=== PATIENT | male | born 1995 | race Caucasian/White ===

== ENCOUNTER → 2016-08-10 | Outpatient (REF) | payer OTHER ==
[~2016-08-10] MED LIST: /ONDA4TA PO; BACIDCA PO; BACITAB PO; CARA1TAB2 PO; CIPRO PO; ENTO3CAP5 PO; FLAG500T PO; FLAGYL PO; HYOS125TA PO; KLON0.5T PO; LEVS0.123 PO; MESA24CASA PO; MORP10EL PO; PERCOCET PO; PRED10TA2 PO; PRIL40CA PO; PROM125TA PO; PROM25TA3 PO; REGL10TA6 PO; SIME80TA OR; TYLE325T5 PO; ULTR50TA PO; VANCOCIN PO; ZOLO100T PO
== END ==
LOC: M LAB REF 14:49
PROVIDERS: ATTEND Physician Assistant
DX: J02.9 Acute pharyngitis, unspecified (principal)

== ENCOUNTER → 2016-08-29 | Outpatient (REF) | payer OTHER | LOC: M LAB REF 19:32 | PROVIDERS: ATTEND Physician Assistant | DX: J02.9 Acute pharyngitis, unspecified (principal) ==

== ENCOUNTER → 2016-08-31 | Outpatient (CLI) | payer OTHER | LOC: M WUC 08:17 | PROVIDERS: ATTEND Physician Assistant | DX: J03.90 Acute tonsillitis, unspecified (principal) ==

== ENCOUNTER → 2018-10-16 | Outpatient (CLI) | payer OTHER ==
[~2018-10-16] MED LIST changes: -/ONDA4TA PO; +BUDE3CAP15 PO; -ENTO3CAP5 PO; +HYOS0.1256 PO; -HYOS125TA PO; -MORP10EL PO; +MORP10SO PO; +ONDA-1 PO; +OXYC1TAB23 PO; -PERCOCET PO
[2018-10-16 22:58] LABS: CHLAMYDIA DNA AMPLIFICATION NEGATIVE (NEGATIVE); GC DNA AMPLIFICATION NEGATIVE (NEGATIVE)
== END ==
LOC: M WUC 17:22
PROVIDERS: ATTEND Physician Assistant Medical
DX: A64 Unspecified sexually transmitted disease (principal)

== ENCOUNTER 2019-07-30 02:27 | Emergency (ER) | payer OTHER ==
[~2019-07-30] VITALS: Ht 188 cm; Wt 81.8 kg
[2019-07-30] MEDS ORDERED: SODI325T9 PO (02:39)
[2019-07-30] MEDS ORDERED: CAPSAICIN 0.025% CR 60 GM TOP ONE (04:00)
[2019-07-30] MEDS ORDERED: HALOPERIDOL 5 MG/ML VIAL (J1630) IV ONE (04:00)
[2019-07-30] MEDS ORDERED: NS 1,000 ML IV ONE (04:00)
[2019-07-30] MEDS ORDERED: KETOROLAC 30 MG/ML VIAL (J1885) IV ONE (04:00)
[2019-07-30] MEDS ORDERED: ONDANSETRON 4MG/2ML VIAL (J2405) IV ONE (04:00)
[2019-07-30 04:36] LABS: BASO % 0.1 % (0.0-1.0); HEMATOCRIT 38.7 % (42.0-52.0); HEMOGLOBIN 13.2 g/dl (13.5-17.5); LYMPH # 0.4 10^3/uL (1.5-5.0); LYMPH % 2.1 % (24.0-44.0); MEAN CORPUSCULAR HEMOGLOBIN 31.7 pg (27.0-33.0); MEAN CORPUSCULAR HGB CONC 34.1 g/dl (32.0-36.5); MEAN CORPUSCULAR VOLUME 92.8 fl (80.0-96.0); MONO # 0.5 10^3/uL (0.0-0.8); MONO % 2.6 % (0.0-5.0); NEUTROPHILS # 18.5 10^3/uL (1.5-8.5); NEUTROPHILS % 94.7 % (36.0-66.0); PLATELET COUNT, AUTOMATED 278 10^3/uL (150-450); RED BLOOD COUNT 4.17 10^6/uL (4.30-6.10); WHITE BLOOD COUNT 19.5 10^3/uL (4.0-10.0)
[2019-07-30 04:48] LABS: ALBUMIN 3.8 GM/DL (3.2-5.2); ALT/SGPT 16 U/L (12-78); BILIRUBIN,TOTAL 0.7 MG/DL (0.2-1.0); BLOOD UREA NITROGEN 21 MG/DL (7-18); CALCIUM LEVEL 9.6 MG/DL (8.5-10.1); CARBON DIOXIDE LEVEL 24 MEQ/L (21-32); CHLORIDE LEVEL 102 MEQ/L (98-107); GLOMERULAR FILTRATION RATE > 60.0 (>60); GLUCOSE, FASTING 145 MG/DL (70-100); LIPASE 37 U/L (73-393); SODIUM LEVEL 135 MEQ/L (136-145); TOTAL PROTEIN 7.9 GM/DL (6.4-8.2)
[2019-07-30 05:16] VITALS: BP 121/60
[2019-07-30] MEDS ORDERED: PROMETHAZINE INJ 25 MG/ML VIAL (J2550) IM ONE (05:45)
[2019-07-30] MEDS ORDERED: ISOVUE-370 76% 100ML VIAL (Q9967) As Ordered ONE (05:58)
--- NOTE | 2019-07-30 06:25 | REPVR ---
PROCEDURE INFORMATION: Exam: CT Abdomen and Pelvis With Contrast Exam date and time: 07/30/19 (5:58am) Age: 24 years old Clinical indication: Vomiting, nausea, abdominal pain TECHNIQUE: Imaging protocol: Computed tomography of the abdomen and pelvis with intravenous contrast. Radiation optimization: All CT scans at this facility use at least one of these dose optimization techniques: automated exposure control; mA and/or kV adjustment per patient size (includes targeted exams where dose is matched to clinical indication); or iterative reconstruction. Contrast material: Iso Contrast volume: 100 ml Contrast route: Antecubital vein COMPARISON: CT ABDOMEN PELVIS of 11/10/15 FINDINGS: Lower lung he: Bibasilar emphysematous lung changes. Scattered hazy opacities at each lung base. No pleural effusions. Liver: Normal. No solid mass. Gallbladder and bile ducts: Normal. No calcified stones. No ductal dilatation. Pancreas: Normal. No ductal dilatation. Spleen: Prominent spleen. Adrenals: Normal. No mass. Kidneys and ureters: Normal. No hydronephrosis. Stomach and bowel: Unremarkable. No bowel obstruction. No mucosal thickening. Appendix: A normal appendix is visualized. Intraperitoneal space: Unremarkable. No free air. No significant fluid collection. Vasculature: Unremarkable. No abdominal aortic aneurysm. Lymph nodes: Unremarkable. No enlarged lymph nodes. Bladder: Unremarkable as visualized. Reproductive: Unremarkable as visualized. Bones/joints: Unremarkable. No acute fracture. Soft tissues: Unremarkable. IMPRESSION: Emphysematous changes at each lung base, probably with chronic interstitial disease. Scattered hazy opacities at each lung base. Possible bibasilar pneumonitis. No consolidation. No pleural effusions. No acute bowel pathology. Prominent spleen. No hydronephrosis. Electronically signed by: Modesta Esqueda On 07/30/2019 06:25:31 AM
[2019-07-30] MEDS ORDERED: KETO10TAB PO (06:49)
[2019-07-30] MEDS ORDERED: ONDA4TAB6 PO ×2 (06:49→20:00)
[2019-07-30] MEDS ORDERED: OMEP1CAP94 PO (17:51)
[2019-07-30] MEDS ORDERED: MAGN500T8 PO (20:00)
[2019-07-30] MEDS ORDERED: VITAD1000T PO (20:00)
[2019-07-30] MEDS ORDERED: ATOM40CA2 PO (20:00)
[2019-07-30] MEDS ORDERED: B-12100010 PO (20:00)
== END 2019-07-30 07:24 | disposition home or self-care (01) ==
LOC: M ED 02:27
DX: R11.15 Cyclical vomiting syndrome unrelated to migraine (principal); F12.10 Cannabis abuse, uncomplicated; R91.8 Other nonspecific abnormal finding of lung field; Z79.899 Other long term (current) drug therapy
CPT/HCPCS: 74177; 80053; 83690; 85025; 96361; 96372; 96374; 96375; 99284; J1630; J1885; J2405; Q9967

== ENCOUNTER 2019-07-30 17:45 | Inpatient (IN) | payer OTHER ==
[~2019-07-30] VITALS: Ht 188 cm; Wt 78.9 kg
[~2019-07-30 17:45] MED LIST changes: +KETO10TAB PO; +ONDA4TAB6 PO; +SODI325T9 PO
[2019-07-30] MEDS ORDERED: OMEP1CAP94 PO (17:51)
[2019-07-30] MEDS ORDERED: PROCHLORPERAZINE 10 MG/2 ML VIAL (J0780) IV ONE (18:15)
[2019-07-30] MEDS ORDERED: KETOROLAC 30 MG/ML VIAL (J1885) IV ONE (18:15)
[2019-07-30] MEDS ORDERED: NS 500 ML IV ONE (18:30)
[2019-07-30] MEDS ORDERED: ACETAMINOPHEN 325 MG TAB PO ONE (18:30)
[2019-07-30 18:32] LABS: BASO % 0.1 % (0.0-1.0); HEMATOCRIT 39.9 % (42.0-52.0); HEMOGLOBIN 13.6 g/dl (13.5-17.5); LYMPH # 0.6 10^3/uL (1.5-5.0); LYMPH % 2.7 % (24.0-44.0); MEAN CORPUSCULAR HGB CONC 34.1 g/dl (32.0-36.5); MEAN CORPUSCULAR VOLUME 93.9 fl (80.0-96.0); MONO # 0.5 10^3/uL (0.0-0.8); MONO % 2.6 % (0.0-5.0); NEUTROPHILS # 19.7 10^3/uL (1.5-8.5); PLATELET COUNT, AUTOMATED 291 10^3/uL (150-450); RED BLOOD COUNT 4.25 10^6/uL (4.30-6.10); WHITE BLOOD COUNT 20.9 10^3/uL (4.0-10.0)
[2019-07-30 19:00] LABS: ALBUMIN 3.8 GM/DL (3.2-5.2); ALT/SGPT 18 U/L (12-78); BILIRUBIN,TOTAL 0.7 MG/DL (0.2-1.0); BLOOD UREA NITROGEN 23 MG/DL (7-18); CALCIUM LEVEL 9.8 MG/DL (8.5-10.1); CARBON DIOXIDE LEVEL 27 MEQ/L (21-32); CHLORIDE LEVEL 103 MEQ/L (98-107); CREATININE FOR GFR 0.82 MG/DL (0.70-1.30); GLOMERULAR FILTRATION RATE > 60.0 (>60); GLUCOSE, FASTING 101 MG/DL (70-100); LIPASE 42 U/L (73-393); POTASSIUM SERUM 4.1 MEQ/L (3.5-5.1); SODIUM LEVEL 137 MEQ/L (136-145); TOTAL PROTEIN 7.9 GM/DL (6.4-8.2)
[2019-07-30] MEDS ORDERED: HALOPERIDOL 5 MG/ML VIAL (J1630) IV ONE (19:00)
--- NOTE | 2019-07-30 19:10 | REP ---
HISTORY: Coronavirus workup. The patient has a fever. COMPARISON: Frontal view obtained as part of an abdominal series 11/10/2015. The technique utilized in obtaining the radiograph has magnified the cardiac silhouette and accentuated the interstitial markings. There are somewhat reticulonodular appearing bibasilar opacities representing a change from the prior exam. The pleural angles are sharp. The cardiac silhouette is magnified by technique. There is no change in the osseous structures. IMPRESSION: Bibasilar opacities as described above. Early basilar pneumonia cannot be ruled out. Electronically Signed by Guillermo Machuca DO 07/30/2019 07:31 P
[2019-07-30] MEDS ORDERED: ALBUTEROL 90 MCG/ACT 8GM HFA INHALER INH ONE (19:15)
[2019-07-30 19:22] LABS: INR 1.48; PROTHROMBIN TIME 17.6 SECONDS (11.8-14.0)
[2019-07-30 19:23] LABS: PARTIAL THROMBOPLASTIN TIME 38.5 SECONDS (25.0-38.4)
[2019-07-30 19:27] LABS: D-DIMER QUANT < 270 ng/ml (<500)
[2019-07-30] MEDS ORDERED: SODIUM CHLORIDE 0.9% 1000ML IV STA (19:41)
[2019-07-30 19:46] LABS: LDH LACTATE DEHYDROGENASE 389 U/L (87-241)
--- NOTE | 2019-07-30 19:47 | HPEPDOC ---
[facility] Medical History & Physical Date of Admission Jul 30, 2019 Date of Service: Jul 30, 2019 Other Provider John Merino MD History and Physical TIME OF SERVICE: 8:05 PM CHIEF COMPLAINT: Fever HISTORY OF PRESENT ILLNESS: This is a 24-year-old male who presented to the hospital earlier on today with complaints of nausea and nonbloody emesis. It was felt that his symptoms may be due to cyclic vomiting syndrome because he uses THC, and he was sent home. He returned this evening with complaints of shortness of breath, fever as high as 101.1 , and persistent vomiting. He reports being unable to keep "anything down". Over the last few weeks he has been following the [facility] orders except for a visit to a [facility] about a week ago. He has been working from home remotely, and lives with his parents. REVIEW OF SYSTEMS: 12 point review of systems negative except as listed in HPI PAST MEDICAL/ SURGICAL HISTORY: Hiatial hernia EGD/colonoscopy SOCIAL HISTORY: + THC + alcohol socially Lives with his parents FAMILY HISTORY: Reviewed and noncontributory ALLERGIES: Please see below. HOME MEDICATIONS: Please see below. PHYSICAL EXAMINATION: Vital Signs Date Time Temp Pulse Resp B/P (MAP) Pulse Ox O2 Delivery O2 Flow Rate FiO2 07/30/19 17:45 101.1 109 20 160/86 (110) 96 Room Air GEN: well-nourished / well developed/ NAD INTEGUMENT: Slightly flushed / he has a tattoo on his back HEENT: NCAT / lips acyanotic /mucus membranes moist and pink CVS: RRR/NMRG/ no lower extremity edema LUNGS: able to speak full sentences without stopping to take a breath /he has decreased air entry bilaterally/ sounds are diminished ABDOMEN: Contour (flat) MSK/EXTREMITIES: range of motion intact in all 4 extremities NEURO: CN 2-12 are grossly intact / speech is not dysarthric PSYCH: alert and oriented to person place and time/ able to understand and follow all commands LABORATORY DATA: Prothrombin Time 17.6H, Prothromb Time International Ratio 1.48, Activated Partial Thromboplast Time 38.5H, D-Dimer, Quantitative < 270 Immature Granulocyte % (Auto) 0.6, Neutrophils (%) (Auto) 94.0H, Lymphocytes (%) (Auto) 2.7L, Monocytes (%) (Auto) 2.6, Eosinophils (%) (Auto) 0.0, Basophils (%) (Auto) 0.1, Neutrophils # (Auto) 19.7H, Lymphocytes # (Auto) 0.6L, Monocytes # (Auto) 0.5, Eosinophils # (Auto) 0.0, Basophils # (Auto) 0.0, Nucleated Red Blood Cells % (auto) 0.0, Anion Gap 7L, Glomerular Filtration Rate > 60.0, Calcium Level 9.8, Total Bilirubin 0.7, Aspartate Amino Transf (AST/SGOT) 26, Alanine Aminotransferase (ALT/SGPT) 18, Alkaline Phosphatase 78, Total Protein 7.9, Albumin 3.8, Albumin/Globulin Ratio 0.93L, Lipase 42L IMAGING: Chest x-ray "IMPRESSION: Bibasilar opacities as described above. Early basilar pneumonia cannot be ruled out." MICROBIOLOGY: 07/30/19 Blood Culture, Received Pending 07/30/19 Blood Culture, Received Pending 07/30/19 Respiratory Panel (PCR), Received Pending ASSESSMENT: Mr. Tyson is a 24-year-old who will be admitted for management of sepsis/SIRS associated with persistent vomiting & shortness of breath. Based on his blood works and imaging findings, there is high suspicion for COVID 19. PLAN: 1. SIRS vs Sepsis Suspect viral infection but can't definitively r/o bacterial infection SIRS criterial include: Temp >101 / HR >90 / WBC >12 Lactic acid <1 NEW2S Score = low risk Plan: admit to PCU / telemetry / Sepsis protocol / Vancomycin & Meropenum Acetaminophen PRN for fever /f/u blood cx / initial fluid bolus of 30ml/kg/ target MAP 65 to 70 / f/u Is and Os with target UOP of at least 0.5 ml/kg/H / target serum glucose 140-180 while acutely ill / he is full code 2. Suspected COVID-19 vs other PNA Symptoms include dyspnea, cough, fever, n/v His WBC, CRP and LDH, PT, PTT are elevated Plts wnl Chest xray shows early bilateral basilar PNA Plan: airborne & contact precautions / continuous pulse ox / will hold of CT chest for now because he is still on RA / f/u respiratory panel, strep pnemo, legionella, fibrinogen, ferritin, procalcitonin, trop (if elevated will order Echo to r/o cardiomyopathy) / VBG to assess for hypoxia / supplemental O2 up to 3L with target FiO2 of 75% (if his FiO2 <75% will consider early elective intubation) 3. Nausea and vomiting Possibly due to virus Plan: Zofran, IV fluids DVT PROPHYLAXIS: lovenox DISPOSITION: likely home after more than 2 midnight's stay Home Medications Scheduled Atomoxetine HCl (Atomoxetine HCl) 40 Mg Capsule, 80 MG PO DAILY Cholecalciferol (Vitamin D3) (Vitamin D3) 1,000 Unit Tablet, 3,000 UNITS PO DAILY Cyanocobalamin (Vitamin B-12) (Vitamin B-12) 1,000 Mcg Capsule, 1,000 MCG PO DAILY Magnesium Gluconate (Magnesium Gluconate) 27.5 Mg Tablet, 1 TAB PO DAILY Omeprazole/Sodium Bicarbonate (Omeprazole-Bicarb 40-1,100 Cap) 1 Each Capsule, 1 CAP PO BID before meals Scheduled PRN Ondansetron (Ondansetron Odt) 4 Mg Tab.rapdis, 4 MG PO Q6-8HP PRN for NAUSEA OR VOMITING Allergies Coded Allergies: No Known Allergies (Unverified , 11/28/12) A-FIB/CHADSVASC A-FIB History Current/History of A-Fib/PAF?: No Current PO Anticoag Therapy: No SIS MCCRAY MD Jul 30, 2019 19:47
[2019-07-30] MEDS ORDERED: MAGN500T8 PO (20:00)
[2019-07-30] MEDS ORDERED: ATOM40CA2 PO (20:00)
[2019-07-30] MEDS ORDERED: ONDA4TAB6 PO (20:00)
[2019-07-30] MEDS ORDERED: VITAD1000T PO (20:00)
[2019-07-30] MEDS ORDERED: B-12100010 PO (20:00)
[2019-07-30] MEDS: DOCUSATE SODIUM 100 MG CAP PO SCH ×2 (20:06→20:17)
[2019-07-30 21:24] LABS: MAGNESIUM LEVEL 2.1 MG/DL (1.8-2.4); TROPONIN I < 0.02 NG/ML (< 0.10)
[2019-07-30 21:38] LABS: FIBRINOGEN 1218 MG/DL (221-452)
[2019-07-30 21:50] LABS: FERRITIN 348 NG/ML (26-388)
[2019-07-30 22:35] VITALS: BP 117/74
[2019-07-30 22:40] VITALS: O2SAT 96
[2019-07-30] MEDS: MEROPENEM INJ 1 GM in IV 1 EA IV SCH (22:53)
[2019-07-30 23:00] VITALS: O2SAT 95
[2019-07-30] MEDS ORDERED: VANCOMYCIN HCL 1,000 MG, VIAL MATE ADAPTER 1 EACH in D5W 250 ML IV ONE (23:30)
[2019-07-31] VITALS (30 sets, daily range): BP systolic 114–134; BP diastolic 69–85; O2SAT 91–97
--- NOTE | 2019-07-31 00:28 | PHACANCOPD ---
PHARMACY VANCOMYCIN DOSING Pt Demographics Demographics Patient Age:24 , Weight:80.300 , Gender: male Adjusted Body Weight Date: 07/31/19, Adjusted Body Weight: Kg Events Past 24 Hours Events Past 24 Hours: NO: Dialysis, Diuretic Therapy, Change in CrCl, Fever, Elevation in WBC, Pending Diagnostics, Pending Procedures, Other Vancomycin Vancomycin Target Ranges: 15-20 mcg/ml Vancomycin Load Y/N: Yes Load Dose Date Time Vancomycin Load Dose: 2000mg Date: 07-30 Time: 0000 Vancomycin Dose Date: 07/31/19. Current Vancomycin Dose: [1000mg q8h] Intermittent Dosing?: No Labs Labs Item Value Date Time White Blood Count 20.9 10^3/uL H 07/30/19 1823 Glomerular Filtration Rate > 60.0 07/30/19 1823 Creatinine 0.82 MG/DL 07/30/19 1823 Blood Urea Nitrogen 23 MG/DL H 07/30/19 1823 Vital Signs Label Value Date Time Patient Temperature 95.4 degrees F 07/31/19 0000 Temperature Source Oral 07/31/19 0000 Micro Microbiology 07/30/19 Blood Culture, Received Pending 07/30/19 Blood Culture, Received Pending 07/30/19 Coronavirus COVID-19 PCR ([facility]), Received Pending 07/30/19 Respiratory Panel (PCR) - Final, Complete Creatinine Clearance Date:07/31/19. Creatinine Clearance: [~140]. Pending Labs Trough - @1600 Assessment and Plan Maintaining Current Dose?: Yes Reason for dose change: No Dose Change Pharmacist Note Pharmacist Note Date: 07/31/19. Pharmacist note:Will monitor and make adjustments as needed. JOSE M[facility]ARM[facility] Jul 31, 2019 00:28
[2019-07-31] MEDS ORDERED: K-PHOS ORIGINAL (POT.ACID PHOSPHATE) 500MG TAB PO SCH (00:45)
[2019-07-31] MEDS ORDERED: NEUTRA-PHOS 1.5 GM PACKET PO ONE (00:45)
[2019-07-31] MEDS: VANCOMYCIN HCL 1,000 MG, VIAL MATE ADAPTER 1 EACH in D5W 250 ML IV SCH ×3 (01:24→17:38)
[2019-07-31] MEDS: LR 1,000 ML IV SCH ×3 (01:24→20:11)
[2019-07-31] MEDS: ONDANSETRON 4MG/2ML VIAL (J2405) IV PRN ×4 (05:02→23:35)
[2019-07-31] MEDS: MEROPENEM INJ 1 GM in IV 1 EA IV SCH ×2 (05:02→14:07)
[2019-07-31] MEDS: ACETAMINOPHEN TAB 650MG DOSE (2X325MG) PO PRN ×3 (05:08→20:14)
[2019-07-31 05:28] LABS: HEMATOCRIT 34.4 % (42.0-52.0); MEAN CORPUSCULAR HEMOGLOBIN 32.1 pg (27.0-33.0); MEAN CORPUSCULAR HGB CONC 33.7 g/dl (32.0-36.5); MEAN CORPUSCULAR VOLUME 95.3 fl (80.0-96.0); PLATELET COUNT, AUTOMATED 246 10^3/uL (150-450); RED BLOOD COUNT 3.61 10^6/uL (4.30-6.10); WHITE BLOOD COUNT 14.9 10^3/uL (4.0-10.0)
[2019-07-31 05:56] LABS: ALBUMIN 2.9 GM/DL (3.2-5.2); ALT/SGPT 15 U/L (12-78); BILIRUBIN,TOTAL 0.4 MG/DL (0.2-1.0); BLOOD UREA NITROGEN 14 MG/DL (7-18); CALCIUM LEVEL 8.5 MG/DL (8.5-10.1); CARBON DIOXIDE LEVEL 26 MEQ/L (21-32); CHLORIDE LEVEL 108 MEQ/L (98-107); CREATININE FOR GFR 0.63 MG/DL (0.70-1.30); GLOMERULAR FILTRATION RATE > 60.0 (>60); GLUCOSE, FASTING 81 MG/DL (70-100); HEMOGLOBIN 11.6 g/dl (13.5-17.5); POTASSIUM SERUM 3.9 MEQ/L (3.5-5.1); SODIUM LEVEL 140 MEQ/L (136-145); TOTAL PROTEIN 6.1 GM/DL (6.4-8.2)
[2019-07-31] MEDS: DOCUSATE SODIUM 100 MG CAP PO SCH ×2 (09:33→20:12)
[2019-07-31] MEDS: ENOXAPARIN 40 MG/0.4 ML SYRINGE (J1650) SC SCH (09:35)
[2019-07-31] MEDS: ATOMOXETINE HCL 40 MG CAP (STRATTERA) PO SCH ×2 (09:35→09:41)
--- NOTE | 2019-07-31 10:38 | ECGEPIP ---
[facility] - ED Test Date: 2019-07-30 Pat Name: JUAN TRAORE Department: Room: [place] [address] Gender: Male [employer]ic: [email or web address] : [id number] Requested By: MEME AHMADI PA-C Order Number: [id number] Reading MD: Julián Ayon Measurements Intervals [place] Rate: 97 P: 22 [place]: 140 QRS: 73 QRSD: 104 T: 56 QT: 351 QTc: 447 Interpretive Statements SINUS RHYTHM NO PRIORS FOR COMPARISON Electronically Signed on 07-31-2019 10:37:36 EDT by Julián Ayon
[2019-07-31] MEDS: MORPHINE 2 MG/ML 1ML VIAL (J2270) IV PRN ×3 (11:33→23:35)
--- NOTE | 2019-07-31 17:39 | IPNPDOC ---
Date Seen The patient was seen on 07/31/19. Progress Note SUBJECTIVE: Patient has had nausea thoughout the night, LR running at high rate. Afebrile since admission, WBC improved to 14K from 20K. 1 episode of diarrhea overnight. Switching abx from vancomycin, meropenem to ceftriaxone and azithromycin. GI panel pending along with other cultures. He admits to severe abdominal pain, worse with vomiting, nonbloody diarrhea, pain in the center of his chest that is nonradiating, 6/10 on pain scale, burning in character. OBJECTIVE: VITAL SIGNS: Please see below PHYSICAL EXAMINATION: CONSTITUTIONAL: Appears uncomfortable in bed, AAO x 3 EYES: PERRLA, EOM intact HENT, MOUTH: Normocephalic, atraumatic, moist mucous membranes NECK: SUPPLE, no JVD, no lymphadenopathy, no carotid bruit CV: Regular rate and rhythm, S1S2 normal, no murmurs/rubs/gallops RESPIRATORY: Decreased breath sounds bilaterally, Mild scattered rhonchi. No rales/wheezes GI: tenderness diffusely in abdomen, BS positive in 4 quadrants, soft, nondistended, no rebound or guarding, no organomegaly : Deferred MUSCULOSKELETAL: Normal ROM. No cyanosis, clubbing, swelling, joint deformity, extremity edema INTEGUMENTARY: Intact, no rashes, no lesions, no erythema NEUROLOGIC: Cranial Nerves II-XII are intact, no focal deficits PSYCHIATRIC: Mood and affect are normal CURRENT MEDICATIONS: Please see below LABORATORY DATA: Please see below IMAGING: No no imaging. ASSESSMENT: The patient is a 24-year-old male admitted under inpatient status for bilateral community acquired pneumonia, abdominal pain, r/o COVID 19. PLAN: 1.Community acquired PNA. Currently 93% on RA. Stopped vancomycin, meropenem and started on Ceftriaxone, azithromycin. Resp panel neg. F/u sputum cx, strep pn emo, legionella, blood cultures x 2 sets. Duonebs ATC, albuterol PRN. 2. Suspected COVID-19. Test pending. C/w airborne & contact precautions, continuous pulse ox, supplemental O2 PRN. Monitor for signs of hypoxia and notify MD quickly if suspect decompensation. 3. Nausea/nonbloody vomiting/nonbloody diarrhea. GI panel, COVID [address] abd/pelvis neg for abdominal pathology. C/w lactated ringers at 100 cc/hr, zofran IV and phenergan PO to be used interchangably. 4. DVT px. Lovenox SC. DISPOSITION: Patient is currently admitted under inpatient status. Plan is to discharge home when medically improved. VS, I&O, 24H, Fishbone Vital Signs/I&O Vital Signs Date Time Temp Pulse Resp B/P (MAP) Pulse Ox O2 Delivery O2 Flow Rate FiO2 07/31/19 13:00 93 Room Air 07/31/19 11:44 99.3 70 20 134/83 (100) I&O- Last 24 Hours up to 6 AM 07/31/19 06:00 Intake Total 3815 ml Output Total 750 ml Balance 3065 ml Laboratory Data 24H LABS Laboratory Tests 2 07/30/19 18:17: Prothrombin Time 17.6H, Prothromb Time International Ratio 1.48, Activated Partial Thromboplast Time 38.5H, Fibrinogen 1218H, D-Dimer, Quantitative < 270 07/30/19 18:23: Immature Granulocyte % (Auto) 0.6, Neutrophils (%) (Auto) 94.0H, Lymphocytes (%) (Auto) 2.7L, Monocytes (%) (Auto) 2.6, Eosinophils (%) (Auto) 0.0, Basophils (%) (Auto) 0.1, Neutrophils # (Auto) 19.7H, Lymphocytes # (Auto) 0.6L, Monocytes # (Auto) 0.5, Eosinophils # (Auto) 0.0, Basophils # (Auto) 0.0, Nucleated Red Blood Cells % (auto) 0.0, Anion Gap 7L, Glomerular Filtration Rate > 60.0, Calcium Level 9.8, Phosphorus Level 2.0L, Magnesium Level 2.1, Ferritin 348, Total Bilirubin 0.7, Aspartate Amino Transf (AST/SGOT) 26, Alanine Aminotransferase (ALT/SGPT) 18, Alkaline Phosphatase 78, Lactate Dehydrogenase 389H, Troponin I < 0.02, C-Reactive Protein, Quantitative 29.00H, Total Protein 7.9, Albumin 3.8, Albumin/Globulin Ratio 0.93L, Lipase 42L 07/30/19 19:32: Lactic Acid Level 0.7, Procalcitonin 0.11 07/30/19 19:41: Lab Scanned Report LAB OTHER 07/31/19 04:57: Nucleated Red Blood Cells % (auto) 0.0, Anion Gap 6L, Glomerular Filtration Rate > 60.0, Calcium Level 8.5, Total Bilirubin 0.4, Aspartate Amino Transf (AST/SGOT) 23, Alanine Aminotransferase (ALT/SGPT) 15, Alkaline Phosphatase 61, Total Protein 6.1#L, Albumin 2.9#L, Albumin/Globulin Ratio 0.91L 07/31/19 16:09: Vancomycin Level Trough 6.1L CBC/BMP Laboratory Tests 07/30/19 18:23 07/31/19 04:57 Microbiology Microbiology 07/30/19 Blood Culture, Received Pending 07/30/19 Blood Culture, Received Pending 07/30/19 Coronavirus COVID-19 PCR ([facility]), Received Pending 07/30/19 Respiratory Panel (PCR) - Final, Complete Current Medications Current Medications Medications (Trade) Dose Ordered Sig/Anupama Route PRN Reason Start Time Stop Time Status Last Admin Dose Admin Acetaminophen (Tylenol Tab) 650 mg Q4H PRN PO PAIN OR FEVER 07/30/19 19:45 07/31/19 09:34 Albuterol Sulfate (Proventil Neb) 2.5 mg Q2HP PRN NEB SOB/WHEEZING 07/31/19 17:45 UNV Albuterol/ Ipratropium (Duoneb (Ipr 0.5mg/Alb 2.5mg)) 3 ml RQ8H NEB 08/01/19 00:00 UNV Atomoxetine HCl (Strattera (Atomoxetine)) 80 mg DAILY PO 07/31/19 09:00 Azithromycin 500 mg/IV Miscellaneous Supplies 1 each/ Dextrose 255 ml @ 255 mls/hr Q24H IV 07/31/19 17:45 UNV Ceftriaxone Sodium 1 gm/ Dextrose 50 ml @ 100 mls/hr Q24H IV 07/31/19 17:45 UNV Dicyclomine HCl (Bentyl) 10 mg Q8HP PRN PO CRAMPS 07/31/19 06:15 Docusate Sodium (Colace) 100 mg BID PO 07/30/19 21:00 07/31/19 09:33 Enoxaparin Sodium (Lovenox) 40 mg DAILY SC 07/31/19 09:00 07/31/19 09:35 Home Med (Med Rec Complete!) ASDIRECTED XX 07/30/19 20:15 07/30/19 20:03 DC Lactated Ringer's 1,000 ml @ 100 mls/hr Q10H IV 07/31/19 17:45 UNV Lactated Ringer's 1,000 ml @ 150 mls/hr Q6H40M IV 07/31/19 00:45 07/31/19 17:34 DC 07/31/19 09:36 Meropenem 1 gm/IV Miscellaneous Supplies 50 ml @ 100 mls/hr Q8H IV 07/30/19 22:00 07/31/19 17:46 DC 07/31/19 14:07 Morphine Sulfate (Morphine Sulfate Inj) 1 mg Q6HP PRN IV MODERATE PAIN (PS 5-7) 07/31/19 11:00 07/31/19 17:39 Ondansetron HCl (ZOFRAN INJection) 4 mg Q6H PRN IV NAUSEA OR VOMITING 07/30/19 21:00 07/31/19 17:38 Pantoprazole Sodium (Protonix) 40 mg DAILY IV 08/01/19 09:00 UNV Potassium Phosphate (K-Phos Original) 750 mg NOW PO 07/31/19 00:45 07/31/19 00:45 DC Promethazine HCl (Phenergan) 25 mg Q6HP PRN PO NAUSEA 07/31/19 17:45 UNV Sodium Chloride (Nacl 0.9%) 2,410 ml BOLUS STAT IV 07/30/19 19:41 07/30/19 19:47 DC 07/30/19 20:00 Sodium Chloride (Saline Lock Flush) 2 ml ASDIRECTED PRN IV SEE LABEL COMMENTS 07/31/19 17:45 Sodium Chloride (Saline Lock Flush) 2 ml SLF IV 07/31/19 22:00 Vancomycin HCl 1000 mg/IV Miscellaneous Supplies 1 each/ Dextrose 270 ml @ 270 mls/hr Q8H IV 07/31/19 01:00 07/31/19 17:46 DC 07/31/19 17:38 Allergies Coded Allergies: No Known Allergies (Unverified , 11/28/12) Clarisse Lucio MD Jul 31, 2019 17:39
[2019-07-31] MEDS ORDERED: ALBUTEROL SULFATE 2.5 MG/0.5 ML INH NEB SOLN NEB PRN (17:45)
[2019-07-31] MEDS ORDERED: SLF 3 ML SYR IV PRN (17:45)
[2019-07-31] MEDS ORDERED: VANCOMYCIN HCL 1,000 MG, VIAL MATE ADAPTER 1 EACH in D5W 250 ML IV ONE (18:00)
[2019-07-31] MEDS: cefTRIAXone SOD 1 GM in D5W MINI-BAG PLUS 50 ML IV SCH (18:20)
[2019-07-31] MEDS: PANTOPRAZOLE 40MG INJ (PROTONIX) (C9113) IV SCH (18:20)
[2019-07-31] MEDS: AZITHROMYCIN INJ 500 MG, VIAL MATE ADAPTER 1 EACH in D5W 250 ML IV SCH (18:59)
[2019-07-31] MEDS: SLF 3 ML SYR IV SCH (20:11)
[2019-08-01] VITALS (23 sets, daily range): BP systolic 124–146; BP diastolic 52–85; O2SAT 87–96
[2019-08-01] MEDS ORDERED: METOCLOPRAMIDE INJ 10MG/2ML VIAL (J2765) IV ONE (02:45)
[2019-08-01] MEDS: ACETAMINOPHEN TAB 650MG DOSE (2X325MG) PO PRN ×2 (03:30→20:42)
[2019-08-01] MEDS: LR 1,000 ML IV SCH ×2 (05:53→15:39)
[2019-08-01] MEDS: MORPHINE 2 MG/ML 1ML VIAL (J2270) IV PRN ×2 (05:53→16:36)
[2019-08-01] MEDS: ONDANSETRON 4MG/2ML VIAL (J2405) IV PRN ×3 (05:53→20:42)
[2019-08-01] MEDS: SLF 3 ML SYR IV SCH ×3 (05:53→22:21)
[2019-08-01 07:21] LABS: ALBUMIN 2.8 GM/DL (3.2-5.2); ALT/SGPT 16 U/L (12-78); BILIRUBIN,TOTAL 0.8 MG/DL (0.2-1.0); BLOOD UREA NITROGEN 7 MG/DL (7-18); CALCIUM LEVEL 8.9 MG/DL (8.5-10.1); CARBON DIOXIDE LEVEL 30 MEQ/L (21-32); CHLORIDE LEVEL 100 MEQ/L (98-107); CREATININE FOR GFR 0.63 MG/DL (0.70-1.30); GLOMERULAR FILTRATION RATE > 60.0 (>60); GLUCOSE, FASTING 108 MG/DL (70-100); MAGNESIUM LEVEL 1.9 MG/DL (1.8-2.4); PHOSPHORUS LEVEL 3.4 MG/DL (2.5-4.9); POTASSIUM SERUM 3.6 MEQ/L (3.5-5.1); SODIUM LEVEL 136 MEQ/L (136-145); TOTAL PROTEIN 6.4 GM/DL (6.4-8.2)
[2019-08-01 08:27] LABS: HEMOGLOBIN 11.5 g/dl (13.5-17.5); MEAN CORPUSCULAR HEMOGLOBIN 31.9 pg (27.0-33.0); MEAN CORPUSCULAR HGB CONC 33.8 g/dl (32.0-36.5); MEAN CORPUSCULAR VOLUME 94.2 fl (80.0-96.0); PLATELET COUNT, AUTOMATED 255 10^3/uL (150-450); RED BLOOD COUNT 3.61 10^6/uL (4.30-6.10); WHITE BLOOD COUNT 17.1 10^3/uL (4.0-10.0)
[2019-08-01] MEDS: DOCUSATE SODIUM 100 MG CAP PO SCH ×2 (09:00→20:32)
[2019-08-01] MEDS: PANTOPRAZOLE 40MG INJ (PROTONIX) (C9113) IV SCH (09:07)
[2019-08-01] MEDS: ENOXAPARIN 40 MG/0.4 ML SYRINGE (J1650) SC SCH (09:07)
[2019-08-01] MEDS: ATOMOXETINE HCL 40 MG CAP (STRATTERA) PO SCH (09:07)
[2019-08-01] MEDS: ALBUTEROL 90 MCG/ACT 8GM HFA INHALER INH PRN (14:21)
[2019-08-01] MEDS ORDERED: IPRATROPIUM 0.5MG/ALBUTEROL 2.5MG INH SOL UD 3ML (DUONEB)(J7620) NEB SCH (16:00)
[2019-08-01] MEDS: PROMETHAZINE 25 MG TAB PO PRN (16:35)
[2019-08-01] MEDS: LACTOBACILLUS ACIDOPHILUS CAP (BACID) PO SCH (17:54)
[2019-08-01] MEDS: cefTRIAXone SOD 1 GM in D5W MINI-BAG PLUS 50 ML IV SCH (17:54)
[2019-08-01] MEDS: AZITHROMYCIN INJ 500 MG, VIAL MATE ADAPTER 1 EACH in D5W 250 ML IV SCH (18:31)
--- NOTE | 2019-08-01 20:18 | IPNPDOC ---
Date Seen The patient was seen on 08/01/19. Progress Note SUBJECTIVE: COVID neg, abx switched to ceftriaxone, azithromycin 07/31/19 and WBC increased today. Temp 100.3 this AM, otherwise improving significantly. All cx thus far neg. Advanced diet and switched to BRAT. PT/OT ordered. Diarrhea continues ;however, he has not eaten much. Burning chest pain, likely acid reflux still present but mild. Increased PPI. OBJECTIVE: VITAL SIGNS: Please see below PHYSICAL EXAMINATION: CONSTITUTIONAL: Appears comfortable, AAO x 3 EYES: PERRLA, EOM intact HENT, MOUTH: Normocephalic, atraumatic, moist mucous membranes NECK: SUPPLE, no JVD, no lymphadenopathy, no carotid bruit CV: Regular rate and rhythm, S1S2 normal, no murmurs/rubs/gallops RESPIRATORY: CTAB, No crackles/rales/wheezes GI: mild tenderness in abdomen, BS positive in 4 quadrants, soft, nondistended, no rebound or guarding, no organomegaly : Deferred MUSCULOSKELETAL: Normal ROM. No cyanosis, clubbing, swelling, joint deformity, extremity edema INTEGUMENTARY: Intact, no rashes, no lesions, no erythema NEUROLOGIC: Cranial Nerves II-XII are intact, no focal deficits PSYCHIATRIC: Mood and affect are normal CURRENT MEDICATIONS: Please see below LABORATORY DATA: Please see below IMAGING: No no imaging. ASSESSMENT: The patient is a 24-year-old male admitted under inpatient status for bilateral community acquired pneumonia, abdominal pain. PLAN: 1.Community acquired PNA. Doing well on 1 L NC; however WBC increased. Stopped vancomycin, meropenem on 07/31/19 and started on Ceftriaxone, azithromycin. Resp panel neg, blood cx neg, COVID neg. He has been unable to produce sputum cx. C/w current abx treatment and if worsen in the AM, consider reculturing. C/w albuterol PRN. 2. Suspected COVID-19. Test neg. 3. Nausea/nonbloody vomiting/nonbloody diarrhea. Improving slowly. Cannot r/o 2/2 to PNA vs. gastroenteritis. GI panel neg, COVID [address] abd/pelvis neg for abdominal pathology. C/w lactated ringers at 100 cc/hr, zofran IV and phenergan PO to be used interchangably. 4. Hx of hiatal hernia. Follows with GI physician as outpatient. 5. DVT px. Lovenox SC. DISPOSITION: Patient is currently admitted under inpatient status. Plan is to discharge home when medically improved. VS, I&O, 24H, Fishbone Vital Signs/I&O Vital Signs Date Time Temp Pulse Resp B/P (MAP) Pulse Ox O2 Delivery O2 Flow Rate FiO2 08/01/19 18:00 95 Room Air 08/01/19 16:46 20 1.0 08/01/19 16:00 98.6 99 146/52 (83) I&O- Last 24 Hours up to 6 AM 08/01/19 06:00 Intake Total 3845 ml Output Total 2900 ml Balance 945 ml Laboratory Data 24H LABS Laboratory Tests 2 08/01/19 06:32: Nucleated Red Blood Cells % (auto) 0.0 08/01/19 06:37: Anion Gap 6L, Glomerular Filtration Rate > 60.0, Calcium Level 8.9, Phosphorus Level 3.4#, Magnesium Level 1.9, Total Bilirubin 0.8#, Aspartate Amino Transf (AST/SGOT) 20, Alanine Aminotransferase (ALT/SGPT) 16, Alkaline Phosphatase 62, Total Protein 6.4, Albumin 2.8L, Albumin/Globulin Ratio 0.78L CBC/BMP Laboratory Tests 08/01/19 06:32 08/01/19 06:37 Microbiology Microbiology 07/31/19 Gastrointestinal Tract Panel (PCR) - Final, Complete 07/30/19 Blood Culture - Preliminary, Resulted No Growth after 48 hours. All Specime... 07/30/19 Blood Culture - Preliminary, Resulted No Growth after 48 hours. All Specime... 07/30/19 Coronavirus COVID-19 PCR ([facility]) - Final, Complete 07/30/19 Respiratory Panel (PCR) - Final, Complete Current Medications Current Medications Medications (Trade) Dose Ordered Sig/Anupama Route PRN Reason Start Time Stop Time Status Last Admin Dose Admin Acetaminophen (Tylenol Tab) 650 mg Q4H PRN PO PAIN OR FEVER 07/30/19 19:45 08/01/19 03:30 Albuterol Sulfate (Proventil Neb) 2.5 mg RQ2H PRN NEB SOB/WHEEZING 07/31/19 17:45 Cancel Albuterol Sulfate (Proventil, Ventolin Hfa) 2 puff Q2HP PRN INH SHORTNESS OF BREATH 08/01/19 07:00 08/01/19 14:21 Albuterol/ Ipratropium (Duoneb (Ipr 0.5mg/Alb 2.5mg)) 3 ml RQ8H NEB 08/01/19 16:00 Cancel Atomoxetine HCl (Strattera (Atomoxetine)) 80 mg DAILY PO 07/31/19 09:00 08/01/19 09:07 Azithromycin 500 mg/IV Miscellaneous Supplies 1 each/ Dextrose 255 ml @ 255 mls/hr Q24H IV 07/31/19 19:00 08/01/19 18:31 Ceftriaxone Sodium 1 gm/ Dextrose 50 ml @ 100 mls/hr Q24H IV 07/31/19 18:00 08/01/19 17:54 Dicyclomine HCl (Bentyl) 10 mg Q8HP PRN PO CRAMPS 07/31/19 06:15 Docusate Sodium (Colace) 100 mg BID PO 07/30/19 21:00 07/31/19 09:33 Enoxaparin Sodium (Lovenox) 40 mg DAILY SC 07/31/19 09:00 08/01/19 09:07 Home Med (Med Rec Complete!) ASDIRECTED XX 07/30/19 20:15 07/30/19 20:03 DC Lactated Ringer's 1,000 ml @ 100 mls/hr Q10H IV 07/31/19 18:00 08/01/19 15:39 Lactated Ringer's 1,000 ml @ 150 mls/hr Q6H40M IV 07/31/19 00:45 07/31/19 17:34 DC 07/31/19 09:36 Lactobacillus Acidophilus (Bacid) 1 ea BIDWM PO 08/01/19 18:00 08/01/19 17:54 Meropenem 1 gm/IV Miscellaneous Supplies 50 ml @ 100 mls/hr Q8H IV 07/30/19 22:00 07/31/19 17:46 DC 07/31/19 14:07 Morphine Sulfate (Morphine Sulfate Inj) 1 mg Q6HP PRN IV MODERATE PAIN (PS 5-7) 07/31/19 11:00 08/01/19 16:36 Omeprazole (PriLOSEC) 40 mg BID PO 08/01/19 21:00 Ondansetron HCl (ZOFRAN INJection) 4 mg Q6H PRN IV NAUSEA OR VOMITING 07/30/19 21:00 08/01/19 13:34 Pantoprazole Sodium (Protonix) 40 mg DAILY IV 07/31/19 09:00 08/01/19 09:38 DC 08/01/19 09:07 Potassium Phosphate (K-Phos Original) 750 mg NOW PO 07/31/19 00:45 07/31/19 00:45 DC Promethazine HCl (Phenergan) 25 mg Q6HP PRN PO NAUSEA 07/31/19 17:45 08/01/19 16:35 Sodium Chloride (Nacl 0.9%) 2,410 ml BOLUS STAT IV 07/30/19 19:41 07/30/19 19:47 DC 07/30/19 20:00 Sodium Chloride (Saline Lock Flush) 2 ml ASDIRECTED PRN IV SEE LABEL COMMENTS 07/31/19 17:45 Sodium Chloride (Saline Lock Flush) 2 ml SLF IV 07/31/19 22:00 08/01/19 13:22 Vancomycin HCl 1000 mg/IV Miscellaneous Supplies 1 each/ Dextrose 270 ml @ 270 mls/hr Q8H IV 07/31/19 01:00 07/31/19 17:46 DC 07/31/19 17:38 Allergies Coded Allergies: No Known Allergies (Unverified , 11/28/12) Clarisse Lucio MD Aug 01, 2019 20:18
[2019-08-01] MEDS: OMEPRAZOLE 20 MG CAP PO SCH (20:42)
[2019-08-01] MEDS: RAMELTEON 8 MG TAB (ROZEREM) PO PRN (22:47)
[2019-08-02] VITALS (12 sets, daily range): BP systolic 137–159; BP diastolic 65–95; O2SAT 91–96
[2019-08-02] MEDS: PROMETHAZINE 25 MG TAB PO PRN (01:55)
[2019-08-02] MEDS: MORPHINE 2 MG/ML 1ML VIAL (J2270) IV PRN ×3 (01:59→23:57)
[2019-08-02] MEDS: SLF 3 ML SYR IV SCH ×3 (04:20→20:41)
[2019-08-02] MEDS: LR 1,000 ML IV SCH ×3 (04:20→20:37)
[2019-08-02 05:24] LABS: HEMATOCRIT 32.7 % (42.0-52.0); HEMOGLOBIN 11.4 g/dl (13.5-17.5); MEAN CORPUSCULAR HEMOGLOBIN 32.1 pg (27.0-33.0); MEAN CORPUSCULAR HGB CONC 34.9 g/dl (32.0-36.5); MEAN CORPUSCULAR VOLUME 92.1 fl (80.0-96.0); PLATELET COUNT, AUTOMATED 281 10^3/uL (150-450); RED BLOOD COUNT 3.55 10^6/uL (4.30-6.10); WHITE BLOOD COUNT 17.2 10^3/uL (4.0-10.0)
[2019-08-02 05:42] LABS: ALBUMIN 2.4 GM/DL (3.2-5.2); ALT/SGPT 16 U/L (12-78); BILIRUBIN,TOTAL 0.4 MG/DL (0.2-1.0); BLOOD UREA NITROGEN 7 MG/DL (7-18); CALCIUM LEVEL 8.6 MG/DL (8.5-10.1); CARBON DIOXIDE LEVEL 30 MEQ/L (21-32); CHLORIDE LEVEL 100 MEQ/L (98-107); CREATININE FOR GFR 0.57 MG/DL (0.70-1.30); GLOMERULAR FILTRATION RATE > 60.0 (>60); GLUCOSE, FASTING 116 MG/DL (70-100); PHOSPHORUS LEVEL 3.9 MG/DL (2.5-4.9); POTASSIUM SERUM 3.7 MEQ/L (3.5-5.1); SODIUM LEVEL 137 MEQ/L (136-145); TOTAL PROTEIN 5.8 GM/DL (6.4-8.2)
[2019-08-02] MEDS: LACTOBACILLUS ACIDOPHILUS CAP (BACID) PO SCH ×2 (08:35→18:28)
[2019-08-02] MEDS: OMEPRAZOLE 20 MG CAP PO SCH ×2 (08:35→20:36)
[2019-08-02] MEDS: DOCUSATE SODIUM 100 MG CAP PO SCH ×2 (08:36→20:45)
[2019-08-02] MEDS: ATOMOXETINE HCL 40 MG CAP (STRATTERA) PO SCH (08:36)
[2019-08-02] MEDS: ONDANSETRON 4MG/2ML VIAL (J2405) IV PRN ×3 (08:51→20:42)
[2019-08-02] MEDS: ENOXAPARIN 40 MG/0.4 ML SYRINGE (J1650) SC SCH (08:52)
[2019-08-02] MEDS ORDERED: VANCOMYCIN HCL 1,000 MG, VIAL MATE ADAPTER 1 EACH in D5W 250 ML IV ONE ×2 (09:00→10:00)
[2019-08-02] MEDS: IPRATROPIUM 0.5MG/ALBUTEROL 2.5MG INH SOL UD 3ML (DUONEB)(J7620) NEB SCH ×3 (10:58→19:51)
--- NOTE | 2019-08-02 12:27 | PHACANCOPD ---
PHARMACY VANCOMYCIN DOSING Pt Demographics Demographics Patient Age:24 , Weight:83.000 , Gender: male Adjusted Body Weight Date: 07/31/19, Adjusted Body Weight: Kg Events Past 24 Hours Events Past 24 Hours: YES: Fever, Elevation in WBC Vancomycin Vancomycin Target Ranges: 15-20 mcg/ml Vancomycin Load Y/N: Yes Load Dose Date Time Vancomycin Load DOse: 2000 mg Date: 08/01 Time: 0900 Vancomycin Load Dose: 2000mg Date: 07-30 Time: 0000 Vancomycin Dose Date: 08/02/19. Current Vancomycin Dose: [1000 mg q6h] Date: 07/31/19. Current Vancomycin Dose: [1000mg q8h] Intermittent Dosing?: No Labs Micro Microbiology 08/01/19 Gram Stain - Final, Resulted 08/01/19 Sputum Culture, Resulted Pending 07/31/19 Gastrointestinal Tract Panel (PCR) - Final, Complete 07/30/19 Blood Culture - Preliminary, Resulted No Growth after 48 hours. All Specime... 07/30/19 Blood Culture - Preliminary, Resulted No Growth after 48 hours. All Specime... 07/30/19 Coronavirus COVID-19 PCR ([facility]) - Final, Complete 07/30/19 Respiratory Panel (PCR) - Final, Complete Creatinine Clearance Date:07/31/19. Creatinine Clearance: [~140]. Pending Labs Trough 04- @1600 Assessment and Plan Maintaining Current Dose?: Yes Reason for dose change: No Dose Change Pharmacist Note Pharmacist Note Date: 08/02/19. Pharmacist note: Pharmacy consulted for Vancomycin for treatment of Community Acquired Pneumonia with a goal trough of 15-20 mcg/ml. MRSA PCR screen has been ordered. We'll load him with 2 grams and follow with 1 gm IV q6h. Pharmacy will continue to monitor and make adjustments as needed. Date: 07/31/19. Pharmacist note:Will monitor and make adjustments as needed. ÓSCAR SAM PHARMACY Aug 02, 2019 12:27
[2019-08-02] MEDS: VANCOMYCIN HCL 1,000 MG, VIAL MATE ADAPTER 1 EACH in D5W 250 ML IV SCH ×2 (15:15→20:36)
[2019-08-02] MEDS: cefTRIAXone SOD 1 GM in D5W MINI-BAG PLUS 50 ML IV SCH (18:28)
[2019-08-02] MEDS: ACETAMINOPHEN TAB 650MG DOSE (2X325MG) PO PRN ×2 (18:30→23:57)
--- NOTE | 2019-08-02 19:58 | IPNPDOC ---
Date Seen The patient was seen on 08/02/19. Progress Note SUBJECTIVE: WBC stayed high at 17K, similar to day prior. Sputum cx pending; however, prelim growing Gram pos cocci, gram pos rods. Stopped Azithromycin, started Vancomycin again and c/w ceftriaxone. States to cont to have diarrhea with nausea. Nutrition is following. OBJECTIVE: VITAL SIGNS: Please see below PHYSICAL EXAMINATION: CONSTITUTIONAL: Appears comfortable, AAO x 3 EYES: PERRLA, EOM intact HENT, MOUTH: Normocephalic, atraumatic, moist mucous membranes NECK: SUPPLE, no JVD, no lymphadenopathy, no carotid bruit CV: Regular rate and rhythm, S1S2 normal, no murmurs/rubs/gallops RESPIRATORY: CTAB, No crackles/rales/wheezes GI: mild tenderness in abdomen, BS positive in 4 quadrants, soft, nondistended, no rebound or guarding, no organomegaly : Deferred MUSCULOSKELETAL: Normal ROM. No cyanosis, clubbing, swelling, joint deformity, extremity edema INTEGUMENTARY: Intact, no rashes, no lesions, no erythema NEUROLOGIC: Cranial Nerves II-XII are intact, no focal deficits PSYCHIATRIC: Mood and affect are normal CURRENT MEDICATIONS: Please see below LABORATORY DATA: Please see below Sputum sample: MANY GRAM POSITIVE COCCI IN PAIRS, CHAINS AND CLUSTERS, MANY GRAM POSITIVE RODS Sputum cx pending IMAGING: No no imaging. ASSESSMENT: The patient is a 24-year-old male admitted under inpatient status for bilateral community acquired pneumonia, abdominal pain. PLAN: 1.Community acquired PNA. Doing well on 1 L NC; however WBC remains increased. C/w vancomycin, ceftriaxone, duonebs ATC, albuterol PRN, incentive spirometer. 2. Nausea/nonbloody vomiting/nonbloody diarrhea. Cannot r/o gastroenteritis but GI panel neg, COVID [address] abd/pelvis neg for abdominal pathology. C/w lactated ringers at 100 cc/hr, zofran IV and phenergan PO. 4. Hx of hiatal hernia. Follows with GI physician as outpatient. PPI 5. GERD. PPI BID. 6. DVT px. Lovenox SC. DISPOSITION: Patient is currently admitted under inpatient status. Plan is to discharge home when medically improved. VS, I&O, 24H, Fishbone Vital Signs/I&O Vital Signs Date Time Temp Pulse Resp B/P (MAP) Pulse Ox O2 Delivery O2 Flow Rate FiO2 08/02/19 16:00 1.0 08/02/19 16:00 99.7 108 19 146/84 (104) 96 Room Air I&O- Last 24 Hours up to 6 AM 08/02/19 06:00 Intake Total 3955 ml Output Total 1000 ml Balance 2955 ml Laboratory Data 24H LABS Laboratory Tests 2 08/02/19 05:05: Nucleated Red Blood Cells % (auto) 0.0, Anion Gap 7L, Glomerular Filtration Rate > 60.0, Calcium Level 8.6, Phosphorus Level 3.9, Magnesium Level 2.0, Total Bilirubin 0.4, Aspartate Amino Transf (AST/SGOT) 20, Alanine Aminotransferase (ALT/SGPT) 16, Alkaline Phosphatase 59, Total Protein 5.8L, Albumin 2.4L, Albumin/Globulin Ratio 0.71L 08/02/19 08:58: Methicillin-Resist S.aureus DNA PCR NOT DETECTED CBC/BMP Laboratory Tests 08/02/19 05:05 Microbiology Microbiology 08/01/19 Gram Stain - Final, Resulted 08/01/19 Sputum Culture, Resulted Pending 07/31/19 Gastrointestinal Tract Panel (PCR) - Final, Complete 07/30/19 Blood Culture - Preliminary, Resulted No Growth after 72 hours. All specime... 07/30/19 Blood Culture - Preliminary, Resulted No Growth after 72 hours. All specime... 07/30/19 Coronavirus COVID-19 PCR ([facility]) - Final, Complete 07/30/19 Respiratory Panel (PCR) - Final, Complete Clarisse Lucio MD Aug 02, 2019 19:58
[2019-08-02] MEDS: RAMELTEON 8 MG TAB (ROZEREM) PO PRN (21:46)
[2019-08-02] MEDS: DICYCLOMINE 10 MG CAP PO PRN (21:46)
[2019-08-03] VITALS: BP 144/80
[2019-08-03] MEDS: PROMETHAZINE 25 MG TAB PO PRN ×3 (00:07→19:00)
[2019-08-03] MEDS: VANCOMYCIN HCL 1,000 MG, VIAL MATE ADAPTER 1 EACH in D5W 250 ML IV SCH ×2 (03:00→08:32)
[2019-08-03 04:00] VITALS: BP 135/83
[2019-08-03] MEDS: ONDANSETRON 4MG/2ML VIAL (J2405) IV PRN ×3 (04:31→21:41)
[2019-08-03] MEDS: METOCLOPRAMIDE INJ 10MG/2ML VIAL (J2765) IV PRN ×2 (04:51→10:43)
[2019-08-03] MEDS: MORPHINE 2 MG/ML 1ML VIAL (J2270) IV PRN ×2 (05:05→15:29)
[2019-08-03] MEDS: SLF 3 ML SYR IV SCH ×3 (05:05→19:56)
[2019-08-03] MEDS: IPRATROPIUM 0.5MG/ALBUTEROL 2.5MG INH SOL UD 3ML (DUONEB)(J7620) NEB SCH ×2 (07:13→16:00)
[2019-08-03 08:00] VITALS: BP 143/85
[2019-08-03 08:09] LABS: BASO % 0.1 % (0.0-1.0); HEMATOCRIT 34.2 % (42.0-52.0); HEMOGLOBIN 11.7 g/dl (13.5-17.5); LYMPH # 0.7 10^3/uL (1.5-5.0); LYMPH % 3.6 % (24.0-44.0); MEAN CORPUSCULAR HEMOGLOBIN 31.7 pg (27.0-33.0); MEAN CORPUSCULAR HGB CONC 34.2 g/dl (32.0-36.5); MEAN CORPUSCULAR VOLUME 92.7 fl (80.0-96.0); MONO # 0.4 10^3/uL (0.0-0.8); MONO % 1.9 % (0.0-5.0); NEUTROPHILS # 17.3 10^3/uL (1.5-8.5); NEUTROPHILS % 93.5 % (36.0-66.0); PLATELET COUNT, AUTOMATED 315 10^3/uL (150-450); RED BLOOD COUNT 3.69 10^6/uL (4.30-6.10); WHITE BLOOD COUNT 18.5 10^3/uL (4.0-10.0)
[2019-08-03] MEDS: ENOXAPARIN 40 MG/0.4 ML SYRINGE (J1650) SC SCH ×2 (08:31→19:55)
[2019-08-03] MEDS: LACTOBACILLUS ACIDOPHILUS CAP (BACID) PO SCH ×2 (08:31→17:29)
[2019-08-03] MEDS: DOCUSATE SODIUM 100 MG CAP PO SCH (08:32)
[2019-08-03] MEDS: ATOMOXETINE HCL 40 MG CAP (STRATTERA) PO SCH (08:32)
[2019-08-03] MEDS: OMEPRAZOLE 20 MG CAP PO SCH ×2 (08:32→19:56)
[2019-08-03] MEDS: LR 1,000 ML IV SCH ×3 (08:33→23:43)
[2019-08-03 08:38] LABS: ALBUMIN 2.3 GM/DL (3.2-5.2); ALT/SGPT 28 U/L (12-78); BILIRUBIN,TOTAL 0.4 MG/DL (0.2-1.0); BLOOD UREA NITROGEN 5 MG/DL (7-18); CALCIUM LEVEL 8.3 MG/DL (8.5-10.1); CARBON DIOXIDE LEVEL 33 MEQ/L (21-32); CHLORIDE LEVEL 97 MEQ/L (98-107); CREATININE FOR GFR 0.62 MG/DL (0.70-1.30); GLOMERULAR FILTRATION RATE > 60.0 (>60); GLUCOSE, FASTING 156 MG/DL (70-100); MAGNESIUM LEVEL 1.9 MG/DL (1.8-2.4); PHOSPHORUS LEVEL 2.9 MG/DL (2.5-4.9); POTASSIUM SERUM 3.2 MEQ/L (3.5-5.1); SODIUM LEVEL 137 MEQ/L (136-145); VANCOMYCIN LEVEL TROUGH 13.3 UG/ML (10.0-20.0)
[2019-08-03 12:00] VITALS: BP 143/84
[2019-08-03] MEDS ORDERED: MORPHINE 4 MG/ML 1ML VIAL/SYRINGE (J2270) IV ONE (12:15)
[2019-08-03] MEDS: KCL 10MEQ/100ML SWI (KRUN) 10 MEQ in IV 1 EA IV SCH ×4 (13:51→17:29)
--- NOTE | 2019-08-03 13:56 | REP ---
REASON: Abdominal pain. COMPARISON: 07/30/2019 Intravenous and oral bowel preparatory contrast was withheld. This causes exam limitations. For description of the lung bases, see CT chest report obtained same day today. Limited evaluation of the solid intra-abdominal organs and gallbladder shows no gross abnormalities or significant changes from the prior exam. Limited evaluation of the pancreas, adrenal glands, and kidneys shows no gross abnormalities or significant changes from the prior exam. The spleen, once again, is full sized. Limited evaluation of the abdominal aorta and para-aortic regions shows no gross abnormalities or significant changes from the prior exam. In the right lower quadrant, there is some evidence of thickening of the m[place] of the cecum. In addition, the maximal transverse dimension of the appendix is 9 mm and, although this is upper limits of normal to mildly dilated, that diameter is unchanged from the prior exam of 07/30/2019. In addition, it is unchanged from an older exam of 12/23/2012. There is no evidence of free air. The bowel loops are otherwise unremarkable. CT PELVIS: There is a small amount of free fluid in the pelvis. The pelvic bowel loops are unremarkable. There is no pelvic mass or adenopathy. Bone window technique throughout the examination shows the osseous structures to be stable and intact. IMPRESSION: 1. Possible wall thickening involving the cecum and difficult to evaluate without contrast. 2. Dimensions of the appendix, as described above, but they have not changed significantly compared to multiple priors, and there is no definite abnormal periappendiceal fatty infiltration or fatty infiltration of the mesoappendix. Findings likely chronic. 3. There is a small to moderate amount of free fluid in the pelvis, etiology uncertain. Electronically Signed by Guillermo Machuca DO 08/03/2019 02:32 P
--- NOTE | 2019-08-03 14:04 | REP ---
REASON: Increasing dyspnea. There are no prior chest CTs for comparison, however, lung base images from abdominal and pelvic CT of 07/30/2019 and the next latest prior of 11/10/2015 have been reviewed. There is no gross mediastinal or hilar adenopathy. There are no pleural or pericardial effusions. The imaged osseous structures are within normal limits. Evaluation of the lung he shows significant air space opacities and ground-glass opacities involving both right and left lungs in a near symmetric pattern. When the lung base images of today are compared to the lung base images of 07/30/2019, there has not been a significant change, however, the lung bases of 11/10/2015 were completely clear. These opacities could obscure a significant nodule. There is a small unchanged pleural-based nodule in the left lower lobe which was present on the 11/10/2015 exam. IMPRESSION: Markedly abnormal air space opacities, as described above. Exact etiology uncertain. Certainly, the findings could reflect viral pneumonitis from COVID-19 or other viral etiologies. Chronic lung disease is also a consideration and needs to be correlated clinically. This exam should be correlated with the patient's social history. Extensive patchy atelectasis could also at least in part be responsible for the finding. Electronically Signed by Guillermo Machuca DO 08/03/2019 02:32 P
[2019-08-03] MEDS: DRONABINOL 2.5 MG CAP (MARINOL) PO PRN ×2 (15:29→20:02)
--- NOTE | 2019-08-03 17:22 | IPNPDOC ---
Date Seen The patient was seen on 08/03/19. Progress Note TOTAL CRITICAL CARE TIME: 75 MINS SUBJECTIVE: Appears uncomfortable today, feels worse. WBC increased to 18.5, allergic reaction to vancomycin with increased n/v, continued intermittent diarrhea. CT chest suspicious for COVID 19 PNA per pulmonolgy. Initial COVID test neg, retesting. Started on plaquenil and azithromycin, meropenem for suspected colitis. Repeating C diff but initial GI panel neg. Vomiting throughout day, added marinol as patient normally takes marijuana for cyclical vomiting syndrome. GI not available over weekend. Transferring to ICU. OBJECTIVE: VITAL SIGNS: Please see below PHYSICAL EXAMINATION: CONSTITUTIONAL: Appears uncomfortable, AAO x 3 EYES: PERRLA, EOM intact HENT, MOUTH: Normocephalic, atraumatic, dry mucous membranes NECK: SUPPLE, no JVD, no lymphadenopathy, no carotid bruit CV: Regular rate and rhythm, S1S2 normal, no murmurs/rubs/gallops RESPIRATORY: fine crackles bilaterally, No rales/wheezes GI: tenderness in abdomen diffusely, BS positive in 4 quadrants, soft, nondistended, no rebound or guarding, no organomegaly : Deferred MUSCULOSKELETAL: Normal ROM. No cyanosis, clubbing, swelling, joint deformity, extremity edema INTEGUMENTARY: macular rash across upper back, patchy red areas on all extremities, blanching. Intact, no lesions, no erythema NEUROLOGIC: Cranial Nerves II-XII are intact, no focal deficits PSYCHIATRIC: Mood and affect are normal CURRENT MEDICATIONS: Please see below LABORATORY DATA: Please see below Microbiology: Initial GI panel 07/30/19: Neg Sputum sample: normal robbi-official Repeat BCx pending to be drawn C. diff test pending (retest) IMAGING: CT chest 08/03/19: Markedly abnormal air space opacities, as described above. Exact etiology uncertain. Certainly, the findings could reflect viral pneumonitis from COVID-19 or other viral etiologies. Chronic lung disease is also a consideration and needs to be correlated clinically. This exam should be correlated with the patient's social history. Extensive patchy atelectasis could also at least in part be responsible for the finding. CT abd/pelvis 08/03/19: 1. Possible wall thickening involving the cecum and difficult to evaluate without contrast. 2. Dimensions of the appendix, as described above, but they have not changed significantly compared to multiple priors, and there is no definite abnormal periappendiceal fatty infiltration or fatty infiltration of the mesoappendix. Findings likely chronic. 3. There is a small to moderate amount of free fluid in the pelvis, etiology uncertain. ASSESSMENT: The patient is a 24-year-old male admitted under inpatient status for bilateral community acquired pneumonia, ruling out COVID 19 (again), intractable vomiting/cyclical vomiting syndrome, r/o colitis. PLAN: 1. Community acquired PNA, r/o COVID 19. Worsening CT as above, highly suspcious despite neg COVID testing on admission. Repeating test, started on hydroxychloroquine, azithromycin per protocol. Increased to 2 LNC today. WBC worse at 18K. As per protocol follow-up CRP, CBC with differential, ferritin, pr o-calcitonin, LDH, BNP, troponin, d-dimer, fibrinogen, PT/PTT every 12 hours. Follow up interleukin-6 (send out), pro-calcitonin. Monitoring QTC with daily ECG and telemetry. Enoxaparin 0.5 mg/kg BID. Incentive spirometer Q2 hrs while awake. Contact and droplet precautions initiated. Continue with supportive care and continuous oxygen monitoring. O2 supplementation PRN. 2. Right upper and lower lung PNA, viral/COVID vs. coinfection? F/u incr. procalcitonin and suspect coinfection consider HCAP. Sputum neg, repeat blood cx. C/w combivent QID, albuterol PRN, incentive spirometer. 3. Bowel thickening on CT, r/o developing colitis. Responded well to Meropenem on admission. Restarting. Initial GI panel neg, testing for c. diff again today as patient has been on abx this entire time. C/w IVFs, morphine PRN for pain. Clear liquid diet. Consulting GI and infectious disease. 4. Diarrhea/Intractable vomiting. Could be 2/2 to hx of cyclical vomiting syndrome, treated with marijuana at home (smoked) vs. 2/2 developing colitis vs. 2/2 to possible COVID 19. Started marinol today, c/w IVFs, zofran, phenergan. GI consult to be placed on 08/05/19. 5. Hypokalemia likely due to GI loss vomiting/diarrhea. S/p 40 mEq supplementation IV. F/u potassium daily. 6. Drug reaction to Vancomycin. Intermediate, rash on back, lower ext. Listed as allergy now. 7. Hx of hiatal hernia. Follows with GI physician as outpatient. PPI 5. GERD. PPI BID. 6. DVT px. Lovenox BID. DISPOSITION: Patient is currently admitted under inpatient status, transferred to ICU while r/o COVID, highly suspicious. Case discussed with Dr. Montero, pulmonary. VS, I&O, 24H, Fishbone Vital Signs/I&O Vital Signs Date Time Temp Pulse Resp B/P (MAP) Pulse Ox O2 Delivery O2 Flow Rate FiO2 08/03/19 15:39 17 08/03/19 12:00 1.0 08/03/19 12:00 98.8 99 143/84 (103) 93 Nasal Cannula I&O- Last 24 Hours up to 6 AM 08/03/19 06:00 Intake Total 5390 ml Output Total 4300 ml Balance 1090 ml Laboratory Data 24H LABS Laboratory Tests 2 08/03/19 07:57: Immature Granulocyte % (Auto) 0.9, Neutrophils (%) (Auto) 93.5H, Lymphocytes (%) (Auto) 3.6L, Monocytes (%) (Auto) 1.9, Eosinophils (%) (Auto) 0.0, Basophils (%) (Auto) 0.1, Neutrophils # (Auto) 17.3H, Lymphocytes # (Auto) 0.7L, Monocytes # (Auto) 0.4, Eosinophils # (Auto) 0.0, Basophils # (Auto) 0.0, Nucleated Red Blood Cells % (auto) 0.0, Anion Gap 7L, Glomerular Filtration Rate > 60.0, Calcium Level 8.3L, Phosphorus Level 2.9#, Magnesium Level 1.9, Total Bilirubin 0.4, Aspartate Amino Transf (AST/SGOT) 29, Alanine Aminotransferase (ALT/SGPT) 2 8, Alkaline Phosphatase 57, Total Protein 6.0L, Albumin 2.3L, Albumin/Globulin Ratio 0.62L, Vancomycin Level Trough 13.3 08/03/19 11:54: Lactic Acid Level 0.9 CBC/BMP Laboratory Tests 08/03/19 07:57 Microbiology Microbiology 08/03/19 Blood Culture, Received Pending 08/03/19 Blood Culture, Received Pending 08/01/19 Gram Stain - Final, Complete 08/01/19 Sputum Culture - Final, Complete 07/31/19 Gastrointestinal Tract Panel (PCR) - Final, Complete 07/30/19 Blood Culture - Preliminary, Resulted No Growth after 72 hours. All specime... 07/30/19 Blood Culture - Preliminary, Resulted No Growth after 72 hours. All specime... 07/30/19 Coronavirus COVID-19 PCR ([facility]) - Final, Complete 07/30/19 Respiratory Panel (PCR) - Final, Complete Current Medications Current Medications Medications (Trade) Dose Ordered Sig/Anupama Route PRN Reason Start Time Stop Time Status Last Admin Dose Admin Acetaminophen (Tylenol Tab) 650 mg Q4H PRN PO PAIN OR FEVER 07/30/19 19:45 08/02/19 23:57 Albuterol Sulfate (Proventil Neb) 2.5 mg RQ2H PRN NEB SOB/WHEEZING 07/31/19 17:45 Cancel Albuterol Sulfate (Proventil, Ventolin Hfa) 2 puff Q2HP PRN INH SHORTNESS OF BREATH 08/01/19 07:00 08/01/19 14:21 Albuterol/ Ipratropium (Combivent Respimat 100-20mcg) 1 puff RQID INH 08/03/19 20:00 Albuterol/ Ipratropium (Duoneb (Ipr 0.5mg/Alb 2.5mg)) 3 ml RQ8H NEB 08/02/19 08:00 08/03/19 17:59 DC 08/03/19 07:13 Albuterol/ Ipratropium (Duoneb (Ipr 0.5mg/Alb 2.5mg)) 3 ml RQ8H NEB 08/01/19 16:00 Cancel Atomoxetine HCl (Strattera (Atomoxetine)) 80 mg DAILY PO 07/31/19 09:00 08/03/19 08:32 Azithromycin 500 mg/IV Miscellaneous Supplies 1 each/ Dextrose 255 ml @ 255 mls/hr Q24H IV 08/03/19 18:00 Azithromycin 500 mg/IV Miscellaneous Supplies 1 each/ Dextrose 255 ml @ 255 mls/hr Q24H IV 07/31/19 19:00 08/02/19 08:10 DC 08/01/19 18:31 Ceftriaxone Sodium 1 gm/ Dextrose 50 ml @ 100 mls/hr Q24H IV 07/31/19 18:00 08/03/19 17:59 DC 08/03/19 17:29 Dicyclomine HCl (Bentyl) 10 mg Q8HP PRN PO CRAMPS 07/31/19 06:15 08/02/19 21:46 Docusate Sodium (Colace) 100 mg BID PO 07/30/19 21:00 08/03/19 17:59 DC 08/03/19 08:32 Dronabinol (Marinol) 5 mg QIDP PRN PO NAUSEA 08/03/19 12:00 08/03/19 15:29 Enoxaparin Sodium (Lovenox) 40 mg BID SC 08/03/19 21:00 Enoxaparin Sodium (Lovenox) 40 mg DAILY SC 07/31/19 09:00 08/03/19 17:59 DC 08/03/19 08:31 Home Med (Med Rec Complete!) ASDIRECTED XX 07/30/19 20:15 07/30/19 20:03 DC Hydroxychloroquine Sulfate (Plaquenil) 200 mg BID PO 08/04/19 21:00 08/08/19 09:01 Hydroxychloroquine Sulfate (Plaquenil) 400 mg BID PO 08/03/19 18:00 08/04/19 09:01 Lactated Ringer's 1,000 ml @ 100 mls/hr Q10H IV 07/31/19 18:00 08/03/19 08:33 Lactated Ringer's 1,000 ml @ 150 mls/hr Q6H40M IV 07/31/19 00:45 07/31/19 17:34 DC 07/31/19 09:36 Lactobacillus Acidophilus (Bacid) 1 ea BIDWM PO 08/01/19 18:00 08/03/19 17:29 Meropenem 1 gm/IV Miscellaneous Supplies 50 ml @ 100 mls/hr Q8H IV 08/03/19 20:00 Meropenem 1 gm/IV Miscellaneous Supplies 50 ml @ 100 mls/hr Q8H IV 07/30/19 22:00 07/31/19 17:46 DC 07/31/19 14:07 Metoclopramide HCl (REGLAN INJection) 5 mg Q6HP PRN IV NAUSEA OR VOMITING 08/03/19 04:30 08/03/19 17:59 DC 08/03/19 10:43 Morphine Sulfate (Morphine Sulfate Inj) 1 mg Q6HP PRN IV MODERATE PAIN (PS 5-7) 07/31/19 11:00 08/03/19 15:29 Omeprazole (PriLOSEC) 40 mg BID PO 08/01/19 21:00 08/03/19 08:32 Ondansetron HCl (ZOFRAN INJection) 4 mg Q6H PRN IV NAUSEA OR VOMITING 07/30/19 21:00 08/03/19 16:27 Pantoprazole Sodium (Protonix) 40 mg DAILY IV 07/31/19 09:00 08/01/19 09:38 DC 08/01/19 09:07 Potassium Chloride 10 meq/ IV Miscellaneous Supplies 100 ml @ 100 mls/hr Q1H IV 08/03/19 12:00 08/03/19 15:59 DC 08/03/19 17:29 Potassium Phosphate (K-Phos Original) 750 mg NOW PO 07/31/19 00:45 07/31/19 00:45 DC Promethazine HCl (Phenergan) 25 mg Q6HP PRN PO NAUSEA 07/31/19 17:45 08/03/19 08:32 Ramelteon (Rozerem) 8 mg QHS PRN PO INSOMNIA 08/01/19 21:00 08/02/19 21:46 Sodium Chloride (Nacl 0.9%) 2,410 ml BOLUS STAT IV 07/30/19 19:41 07/30/19 19:47 DC 07/30/19 20:00 Sodium Chloride (Saline Lock Flush) 2 ml ASDIRECTED PRN IV SEE LABEL COMMENTS 07/31/19 17:45 Sodium Chloride (Saline Lock Flush) 2 ml SLF IV 07/31/19 22:00 08/03/19 05:05 Vancomycin HCl 1000 mg/IV Miscellaneous Supplies 1 each/ Dextrose 270 ml @ 270 mls/hr Q6H IV 08/02/19 15:00 08/03/19 11:53 DC 08/03/19 08:32 Vancomycin HCl 1000 mg/IV Miscellaneous Supplies 1 each/ Dextrose 270 ml @ 270 mls/hr Q8H IV 07/31/19 01:00 07/31/19 17:46 DC 07/31/19 17:38 Allergies Coded Allergies: vancomycin (Verified Allergy, Intermediate, patchy upper body rash, 08/03/19) Clarisse Lucio MD Aug 03, 2019 17:22
[2019-08-03] MEDS: cefTRIAXone SOD 1 GM in D5W MINI-BAG PLUS 50 ML IV SCH (17:29)
--- NOTE | 2019-08-03 18:06 | IPNPDOC ---
Date Seen The patient was seen on 08/03/19. Progress Note IMPRESSION: Markedly abnormal air space opacities, as described above. Exact etiology uncertain. Certainly, the findings could reflect viral pneumonitis from COVID-19 or other viral etiologies. Chronic lung disease is also a consideration and needs to be correlated clinically. This exam should be correlated with the patient's social history. Extensive patchy atelectasis could also at least in part be responsible for the finding. IMPRESSION: 1. Possible wall thickening involving the cecum and difficult to evaluate without contrast. 2. Dimensions of the appendix, as described above, but they have not changed significantly compared to multiple priors, and there is no definite abnormal periappendiceal fatty infiltration or fatty infiltration of the mesoappendix. Findings likely chronic. 3. There is a small to moderate amount of free fluid in the pelvis, etiology uncertain. VS, I&O, 24H, Fishbone Vital Signs/I&O Vital Signs Date Time Temp Pulse Resp B/P (MAP) Pulse Ox O2 Delivery O2 Flow Rate FiO2 08/03/19 15:39 17 08/03/19 12:00 1.0 08/03/19 12:00 98.8 99 143/84 (103) 93 Nasal Cannula I&O- Last 24 Hours up to 6 AM 08/03/19 06:00 Intake Total 5390 ml Output Total 4300 ml Balance 1090 ml Laboratory Data 24H LABS Laboratory Tests 2 08/03/19 07:57: Immature Granulocyte % (Auto) 0.9, Neutrophils (%) (Auto) 93.5H, Lymphocytes (%) (Auto) 3.6L, Monocytes (%) (Auto) 1.9, Eosinophils (%) (Auto) 0.0, Basophils (%) (Auto) 0.1, Neutrophils # (Auto) 17.3H, Lymphocytes # (Auto) 0.7L, Monocytes # (Auto) 0.4, Eosinophils # (Auto) 0.0, Basophils # (Auto) 0.0, Nucleated Red Blood Cells % (auto) 0.0, Anion Gap 7L, Glomerular Filtration Rate > 60.0, Calcium Level 8.3L, Phosphorus Level 2.9#, Magnesium Level 1.9, Total Bilirubin 0.4, Aspartate Amino Transf (AST/SGOT) 29, Alanine Aminotransferase (ALT/SGPT) 28, Alkaline Phosphatase 57, Total Protein 6.0L, Albumin 2.3L, Albumin/Globulin Ratio 0.62L, Vancomycin Level Trough 13.3 08/03/19 11:54: Lactic Acid Level 0.9 CBC/BMP Laboratory Tests 08/03/19 07:57 Microbiology Microbiology 08/03/19 Blood Culture, Received Pending 08/03/19 Blood Culture, Received Pending 08/01/19 Gram Stain - Final, Complete 08/01/19 Sputum Culture - Final, Complete 07/31/19 Gastrointestinal Tract Panel (PCR) - Final, Complete 07/30/19 Blood Culture - Preliminary, Resulted No Growth after 72 hours. All specime... 07/30/19 Blood Culture - Preliminary, Resulted No Growth after 72 hours. All specime... 07/30/19 Coronavirus COVID-19 PCR ([facility]) - Final, Complete 07/30/19 Respiratory Panel (PCR) - Final, Complete Clarisse Lucio MD Aug 03, 2019 18:06
[2019-08-03 18:40] LABS: BASO % 0.2 % (0.0-1.0); HEMOGLOBIN 11.5 g/dl (13.5-17.5); LYMPH # 0.8 10^3/uL (1.5-5.0); LYMPH % 3.9 % (24.0-44.0); MEAN CORPUSCULAR HEMOGLOBIN 31.3 pg (27.0-33.0); MEAN CORPUSCULAR HGB CONC 33.8 g/dl (32.0-36.5); MEAN CORPUSCULAR VOLUME 92.4 fl (80.0-96.0); MONO # 0.5 10^3/uL (0.0-0.8); MONO % 2.5 % (0.0-5.0); NEUTROPHILS % 92.5 % (36.0-66.0); PLATELET COUNT, AUTOMATED 342 10^3/uL (150-450); RED BLOOD COUNT 3.68 10^6/uL (4.30-6.10); WHITE BLOOD COUNT 19.5 10^3/uL (4.0-10.0)
[2019-08-03 18:57] LABS: INR 1.54; PROTHROMBIN TIME 18.2 SECONDS (11.8-14.0)
[2019-08-03 19:00] LABS: D-DIMER QUANT 991.54 ng/ml (<500)
[2019-08-03] MEDS: HYDROXYCHLOROQUINE 200 MG TAB PO SCH (19:00)
[2019-08-03] MEDS: AZITHROMYCIN INJ 500 MG, VIAL MATE ADAPTER 1 EACH in D5W 250 ML IV SCH (19:00)
[2019-08-03 19:12] LABS: FERRITIN 475 NG/ML (26-388); LDH LACTATE DEHYDROGENASE 382 U/L (87-241); NT-PRO BNP 526 PG/ML (<125); TROPONIN I < 0.02 NG/ML (< 0.10)
[2019-08-03 20:00] VITALS: BP 127/86
[2019-08-03] MEDS: MEROPENEM INJ 1 GM in IV 1 EA IV SCH (20:06)
[2019-08-03] MEDS: COMBIVENT RESPIMAT 100-20MCG INHALER 4GM INH SCH (20:46)
[2019-08-03] MEDS: ACETAMINOPHEN TAB 650MG DOSE (2X325MG) PO PRN (21:41)
[2019-08-03 23:39] VITALS: BP 135/85
[2019-08-04] MEDS: PROMETHAZINE 25 MG TAB PO PRN ×3 (01:13→19:55)
[2019-08-04] MEDS: DICYCLOMINE 10 MG CAP PO PRN ×2 (01:13→12:25)
[2019-08-04] MEDS: RAMELTEON 8 MG TAB (ROZEREM) PO PRN (01:13)
[2019-08-04] MEDS: DRONABINOL 2.5 MG CAP (MARINOL) PO PRN ×4 (02:09→19:56)
[2019-08-04] MEDS: MORPHINE 2 MG/ML 1ML VIAL (J2270) IV PRN ×2 (02:15→19:56)
[2019-08-04 02:27] LABS: CLOSTRIDIUM DIFFICILE PCR NEGATIVE (NEGATIVE)
[2019-08-04] MEDS: ONDANSETRON 4MG/2ML VIAL (J2405) IV PRN ×3 (03:04→17:33)
[2019-08-04] MEDS: MEROPENEM INJ 1 GM in IV 1 EA IV SCH ×3 (03:31→19:57)
[2019-08-04 04:00] VITALS: BP 140/88
[2019-08-04 05:13] LABS: BASO % 0.2 % (0.0-1.0); HEMATOCRIT 33.7 % (42.0-52.0); HEMOGLOBIN 11.4 g/dl (13.5-17.5); LYMPH # 0.7 10^3/uL (1.5-5.0); LYMPH % 3.4 % (24.0-44.0); MEAN CORPUSCULAR HEMOGLOBIN 31.5 pg (27.0-33.0); MEAN CORPUSCULAR HGB CONC 33.8 g/dl (32.0-36.5); MEAN CORPUSCULAR VOLUME 93.1 fl (80.0-96.0); MONO # 0.4 10^3/uL (0.0-0.8); MONO % 1.9 % (0.0-5.0); NEUTROPHILS # 19.2 10^3/uL (1.5-8.5); NEUTROPHILS % 93.6 % (36.0-66.0); PLATELET COUNT, AUTOMATED 354 10^3/uL (150-450); RED BLOOD COUNT 3.62 10^6/uL (4.30-6.10); WHITE BLOOD COUNT 20.5 10^3/uL (4.0-10.0)
[2019-08-04 05:27] LABS: INR 1.65; PROTHROMBIN TIME 19.2 SECONDS (11.8-14.0)
[2019-08-04 05:28] LABS: PARTIAL THROMBOPLASTIN TIME 42.8 SECONDS (25.0-38.4)
[2019-08-04 05:30] LABS: D-DIMER QUANT 1110.89 ng/ml (<500)
[2019-08-04 05:50] LABS: ALBUMIN 2.1 GM/DL (3.2-5.2); ALT/SGPT 27 U/L (12-78); BILIRUBIN,TOTAL 0.4 MG/DL (0.2-1.0); BLOOD UREA NITROGEN 7 MG/DL (7-18); CALCIUM LEVEL 8.4 MG/DL (8.5-10.1); CARBON DIOXIDE LEVEL 33 MEQ/L (21-32); CHLORIDE LEVEL 97 MEQ/L (98-107); CREATININE FOR GFR 0.57 MG/DL (0.70-1.30); FERRITIN 502 NG/ML (26-388); GLOMERULAR FILTRATION RATE > 60.0 (>60); GLUCOSE, FASTING 123 MG/DL (70-100); LDH LACTATE DEHYDROGENASE 392 U/L (87-241); MAGNESIUM LEVEL 1.9 MG/DL (1.8-2.4); NT-PRO BNP 480 PG/ML (<125); PHOSPHORUS LEVEL 3.3 MG/DL (2.5-4.9); POTASSIUM SERUM 3.3 MEQ/L (3.5-5.1); SODIUM LEVEL 135 MEQ/L (136-145); TOTAL PROTEIN 5.7 GM/DL (6.4-8.2); TROPONIN I < 0.02 NG/ML (< 0.10)
[2019-08-04] MEDS: SLF 3 ML SYR IV SCH ×3 (06:22→22:39)
[2019-08-04] MEDS: ACETAMINOPHEN TAB 650MG DOSE (2X325MG) PO PRN ×2 (06:27→14:18)
[2019-08-04] MEDS: COMBIVENT RESPIMAT 100-20MCG INHALER 4GM INH SCH ×4 (08:00→20:06)
[2019-08-04] MEDS: ENOXAPARIN 40 MG/0.4 ML SYRINGE (J1650) SC SCH ×2 (08:02→20:13)
[2019-08-04] MEDS: OMEPRAZOLE 20 MG CAP PO SCH ×2 (08:03→19:55)
[2019-08-04] MEDS: ATOMOXETINE HCL 40 MG CAP (STRATTERA) PO SCH (08:03)
[2019-08-04] MEDS: HYDROXYCHLOROQUINE 200 MG TAB PO SCH ×2 (08:04→19:55)
[2019-08-04] MEDS: LACTOBACILLUS ACIDOPHILUS CAP (BACID) PO SCH ×2 (08:04→17:32)
[2019-08-04] MEDS: NS 1,000 ML IV SCH ×2 (08:43→20:00)
[2019-08-04] MEDS: metroNIDAZOLE 500 MG in IV 1 EA IV SCH ×2 (08:43→16:18)
[2019-08-04 08:46] LABS: BASO % 0.2 % (0.0-1.0); EOS % 0.1 % (0.0-3.0); HEMATOCRIT 32.5 % (42.0-52.0); LYMPH % 4.9 % (24.0-44.0); MEAN CORPUSCULAR HEMOGLOBIN 31.6 pg (27.0-33.0); MEAN CORPUSCULAR HGB CONC 33.8 g/dl (32.0-36.5); MEAN CORPUSCULAR VOLUME 93.4 fl (80.0-96.0); MONO # 0.4 10^3/uL (0.0-0.8); MONO % 2.2 % (0.0-5.0); NEUTROPHILS # 17.6 10^3/uL (1.5-8.5); NEUTROPHILS % 91.3 % (36.0-66.0); PLATELET COUNT, AUTOMATED 344 10^3/uL (150-450); RED BLOOD COUNT 3.48 10^6/uL (4.30-6.10); WHITE BLOOD COUNT 19.2 10^3/uL (4.0-10.0)
[2019-08-04 09:00] VITALS: BP 130/87
[2019-08-04] MEDS ORDERED: POTASSIUM CHLORIDE 10 MEQ SR TABLET PO ONE (09:00)
[2019-08-04 09:31] LABS: FERRITIN 540 NG/ML (26-388); LDH LACTATE DEHYDROGENASE 432 U/L (87-241); NT-PRO BNP 519 PG/ML (<125); TROPONIN I < 0.02 NG/ML (< 0.10)
[2019-08-04 09:53] LABS: INR 1.65; PROTHROMBIN TIME 19.2 SECONDS (11.8-14.0)
[2019-08-04 09:56] LABS: D-DIMER QUANT 974.77 ng/ml (<500)
[2019-08-04] MEDS: GASTROGRAFIN SOLUTION 30ML PO SCH ×2 (10:21→10:55)
[2019-08-04] MEDS ORDERED: ISOVUE-370 76% 100ML VIAL (Q9967) As Ordered ONE (10:59)
[2019-08-04 12:00] VITALS: BP 130/87
--- NOTE | 2019-08-04 12:14 | ECGEPIP ---
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 Electronically Signed on 08-04-2019 12:14:26 EDT by Paulo Chavez
--- NOTE | 2019-08-04 12:15 | ECGEPIP ---
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 Electronically Signed on 08-04-2019 12:15:17 EDT by Paulo Chavez
--- NOTE | 2019-08-04 12:21 | IPNPDOC ---
Date Seen The patient was seen on 08/04/19. Progress Note SUBJECTIVE: Continues to have intermittent nausea with vomiting but this decreased significantly after stopping vancomycin and adding marinol. Diarrhea continues but has slowed down some, repeat C. diff neg. WBC increased further on meropenem, added flagyl. ID to see in the AM. CT with contrast of the abd/pelvis today to get a better look at thickened areas on prior CT. Decreased O2 requirement on 1 L N with fever this AM of 100.6. States he coughed up a small amount of blood this AM, small streak of blood was seen. Watching while on Enoxaparin BID. Denies shortness of breath, fever, chills. OBJECTIVE: VITAL SIGNS: Please see below PHYSICAL EXAMINATION: CONSTITUTIONAL: Resting in bed, AAO x 3 EYES: PERRLA, EOM intact HENT, MOUTH: Normocephalic, atraumatic, dry mucous membranes NECK: SUPPLE, no JVD, no lymphadenopathy, no carotid bruit CV: Regular rate and rhythm, S1S2 normal, no murmurs/rubs/gallops RESPIRATORY: fine crackles bilaterally, No rales/wheezes GI: tenderness in abdomen diffusely- improved compared to 08/03/19, BS positive in 4 quadrants, soft, nondistended, no rebound or guarding, no organomegaly : Deferred MUSCULOSKELETAL: Normal ROM. No cyanosis, clubbing, swelling, joint deformity, extremity edema INTEGUMENTARY: No rash, intact, no lesions, no erythema NEUROLOGIC: Cranial Nerves II-XII are intact, no focal deficits PSYCHIATRIC: Mood and affect are normal CURRENT MEDICATIONS: Please see below LABORATORY DATA: Please see below Microbiology: Initial GI panel 07/30/19: Neg Initial BCx - NG Repeat BCx - pending C. diff test- neg IMAGING: CT chest 08/03/19: Markedly abnormal air space opacities, as described above. Exact etiology uncertain. Certainly, the findings could reflect viral pneumonitis from COVID-19 or other viral etiologies. Chronic lung disease is also a consideration and needs to be correlated clinically. This exam should be correlated with the patient's social history. Extensive patchy atelectasis could also at least in part be responsible for the finding. CT abd/pelvis 08/03/19: 1. Possible wall thickening involving the cecum and difficult to evaluate without contrast. 2. Dimensions of the appendix, as described above, but they have not changed significantly compared to multiple priors, and there is no definite abnormal periappendiceal fatty infiltration or fatty infiltration of the mesoappendix. Findings likely chronic. 3. There is a small to moderate amount of free fluid in the pelvis, etiology uncertain. CT with contrast pending ASSESSMENT: The patient is a 24-year-old male admitted under inpatient status for bilateral community acquired pneumonia, ruling out COVID 19 (first test neg, repeating), r/o developing colitis. PLAN: 1. Community acquired PNA, r/o COVID 19. Decreased to O2 to 1 L NC. WBC again worse at 18K, thinking possibly due to GI source not respiratory. Worsened ferritin, LDAH. Improved CRP, BNP. F/u repeat COVID test. Per protocol follow-up CRP, CBC with differential, ferritin, pro-calcitonin, LDH, BNP, troponin, d- dimer, fibrinogen, PT/PTT every 12 hours. Follow up interleukin-6 (send out). QTC <500 on ECG this AM. C/w daily ECG and telemetry, incentive spirometer Q2 hrs while awake, contact and droplet precautions, oxygen monitoring. P rocalcitonin still pending from 08/03/19. If elevated and suspect coinfection, consider HCAP. Sputum neg, repeat blood cx pending. C/w combivent QID, albuterol PRN, hydroxychloroquine, azithromycin, Enoxaparin 0.5 mg/kg BID. 2. Presumptive COVID 19. F/u plan as above. 3. Bowel thickening on CT, r/o developing colitis. Initial GI panel neg, repeat C. diff neg. C/w IVFs, meropenem, morphine PRN for pain. Clear liquid diet. C onsulting GI and infectious disease. 4. Diarrhea/Intractable vomiting. Possibly secondary to or multifactorial to cyclical vomiting syndrome vs. developing colitis vs. possible COVID 19. Improved slightly. C/w marinol today, IVFs, zofran, phenergan. GI consult to be placed on 08/05/19. 5. Hypokalemia likely due to GI loss vomiting/diarrhea. S/p 40 mEq supplementation . F/u potassium daily. 6. Hx of hiatal hernia. Follows with GI physician as outpatient. PPI 7. GERD. PPI BID. 8. DVT px. Lovenox BID. DISPOSITION: Patient is currently admitted under inpatient status. Plan is discharge home when medically improved. VS, I&O, 24H, Fishbone Vital Signs/I&O Vital Signs Date Time Temp Pulse Resp B/P (MAP) Pulse Ox O2 Delivery O2 Flow Rate FiO2 08/04/19 09:00 1.0 08/04/19 09:00 99.7 100 16 130/87 (101) 94 Nasal Cannula I&O- Last 24 Hours up to 6 AM 08/04/19 06:00 Intake Total 3495 ml Output Total 3225 ml Balance 270 ml Laboratory Data 24H LABS Laboratory Tests 2 08/03/19 18:29: Immature Granulocyte % (Auto) 0.9, Neutrophils (%) (Auto) 92.5H, Lymphocytes (%) (Auto) 3.9L, Monocytes (%) (Auto) 2.5, Eosinophils (%) (Auto) 0.0, Basophils (%) (Auto) 0.2, Neutrophils # (Auto) 18.0H, Lymphocytes # (Auto) 0.8L, Monocytes # (Auto) 0.5, Eosinophils # (Auto) 0.0, Basophils # (Auto) 0.0, Nucleated Red Blood Cells % (auto) 0.0, Prothrombin Time 18.2H, Prothromb Time International Ratio 1.54, Activated Partial Thromboplast Time 39.0H, Fibrinogen 1229H, D- Dimer, Quantitative 991.54H, Ferritin 475H, Lactate Dehydrogenase 382H, Troponin I < 0.02, C-Reactive Protein, Quantitative 37.40H, UI-Exh-N-Type Natriuretic Peptide 526H 08/04/19 01:30: Clostridium difficile [id number] PRESUMPTIVE NEGATIVE, Clostridium difficile Toxin (PCR) NEGATIVE 08/04/19 04:59: Immature Granulocyte % (Auto) 0.9, Neutrophils (%) (Auto) 93.6H, Lymphocytes (%) (Auto) 3.4L, Monocytes (%) (Auto) 1.9, Eosinophils (%) (Auto) 0.0, Basophils (%) (Auto) 0.2, Neutrophils # (Auto) 19.2H, Lymphocytes # (Auto) 0.7L, Monocytes # (Auto) 0.4, Eosinophils # (Auto) 0.0, Basophils # (Auto) 0.0, Nucleated Red Blood Cells % (auto) 0.0, Prothrombin Time 19.2H, Prothromb Time International Ratio 1.65, Activated Partial Thromboplast Time 42.8H, Fibrinogen 1241H, D- Dimer, Quantitative 1110.89H, Ferritin 502H, Lactate Dehydrogenase 392H, Troponin I < 0.02, C-Reactive Protein, Quantitative 36.80H, OB-Kqf-K-Type Natriuretic Peptide 480H, Anion Gap 5L, Glomerular Filtration Rate > 60.0, Calcium Level 8.4L, Phosphorus Level 3.3, Magnesium Level 1.9, Total Bilirubin 0.4, Aspartate Amino Transf (AST/SGOT) 30, Alanine Aminotransferase (ALT/SGPT) 27, Alkaline Phosphatase 54, Total Protein 5.7L, Albumin 2.1L, Albumin/Globulin Ratio 0.58L 08/04/19 08:35: Immature Granulocyte % (Auto) 1.3, Neutrophils (%) (Auto) 91.3H, Lymphocytes (%) (Auto) 4.9L, Monocytes (%) (Auto) 2.2, Eosinophils (%) (Auto) 0.1, Basophils (%) (Auto) 0.2, Neutrophils # (Auto) 17.6H, Lymphocytes # (Auto) 1.0L, Monocytes # (Auto) 0.4, Eosinophils # (Auto) 0.0, Basophils # (Auto) 0.0, Nucleated Red Bl ood Cells % (auto) 0.0, Prothrombin Time 19.2H, Prothromb Time International Ratio 1.65, Activated Partial Thromboplast Time 37.0, Fibrinogen 1128H, D-Dimer, Quantitative 974.77H, Ferritin 540H, Lactate Dehydrogenase 432H, Troponin I < 0.02, C-Reactive Protein, Quantitative 34.40H, JQ-Vhb-V-Type Natriuretic Peptide 519H CBC/BMP Laboratory Tests 08/03/19 18:29 08/04/19 04:59 08/04/19 08:35 Microbiology Microbiology 08/03/19 Coronavirus COVID-19 PCR ([facility]), Received Pending 08/03/19 Blood Culture, Received Pending 08/03/19 Blood Culture, Received Pending 08/01/19 Gram Stain - Final, Complete 08/01/19 Sputum Culture - Final, Complete 07/31/19 Gastrointestinal Tract Panel (PCR) - Final, Complete 07/30/19 Blood Culture - Preliminary, Resulted No Growth after 72 hours. All specime... 07/30/19 Blood Culture - Preliminary, Resulted No Growth after 72 hours. All specime... 07/30/19 Coronavirus COVID-19 PCR ([facility]) - Final, Complete 07/30/19 Respiratory Panel (PCR) - Final, Complete Current Medications Current Medications Medications (Trade) Dose Ordered Sig/Anupama Route PRN Reason Start Time Stop Time Status Last Admin Dose Admin Acetaminophen (Tylenol Tab) 650 mg Q4H PRN PO PAIN OR FEVER 07/30/19 19:45 08/04/19 06:27 Albuterol Sulfate (Proventil Neb) 2.5 mg RQ2H PRN NEB SOB/WHEEZING 07/31/19 17:45 Cancel Albuterol Sulfate (Proventil, Ventolin Hfa) 2 puff Q2HP PRN INH SHORTNESS OF BREATH 08/01/19 07:00 08/01/19 14:21 Albuterol/ Ipratropium (Combivent Respimat 100-20mcg) 1 puff RQID INH 08/03/19 20:00 08/04/19 11:39 Albuterol/ Ipratropium (Duoneb (Ipr 0.5mg/Alb 2.5mg)) 3 ml RQ8H NEB 08/02/19 08:00 08/03/19 17:59 DC 08/03/19 07:13 Albuterol/ Ipratropium (Duoneb (Ipr 0.5mg/Alb 2.5mg)) 3 ml RQ8H NEB 08/01/19 16:00 Cancel Atomoxetine HCl (Strattera (Atomoxetine)) 80 mg DAILY PO 07/31/19 09:00 08/03/19 08:32 Azithromycin 500 mg/IV Miscellaneous Supplies 1 each/ Dextrose 255 ml @ 255 mls/hr Q24H IV 08/03/19 18:00 08/03/19 19:00 Azithromycin 500 mg/IV Miscellaneous Supplies 1 each/ Dextrose 255 ml @ 255 mls/hr Q24H IV 07/31/19 19:00 08/02/19 08:10 DC 08/01/19 18:31 Ceftriaxone Sodium 1 gm/ Dextrose 50 ml @ 100 mls/hr Q24H IV 07/31/19 18:00 08/03/19 17:59 DC 08/03/19 17:29 Diatrizoate Meglum/ Diatrizoate Sod (Gastrografin) 10 ml Q30M PO 08/04/19 09:45 08/04/19 10:16 DC 08/04/19 10:55 Dicyclomine HCl (Bentyl) 10 mg Q8HP PRN PO CRAMPS 07/31/19 06:15 08/04/19 01:13 Docusate Sodium (Colace) 100 mg BID PO 07/30/19 21:00 08/03/19 17:59 DC 08/03/19 08:32 Dronabinol (Marinol) 5 mg QIDP PRN PO NAUSEA 08/03/19 12:00 08/04/19 10:21 Enoxaparin Sodium (Lovenox) 40 mg BID SC 08/03/19 21:00 08/04/19 08:02 Enoxaparin Sodium (Lovenox) 40 mg DAILY SC 07/31/19 09:00 08/03/19 17:59 DC 08/03/19 08:31 Home Med (Med Rec Complete!) ASDIRECTED XX 07/30/19 20:15 07/30/19 20:03 DC Hydroxychloroquine Sulfate (Plaquenil) 200 mg BID PO 08/04/19 21:00 08/08/19 09:01 Hydroxychloroquine Sulfate (Plaquenil) 400 mg BID PO 08/03/19 18:00 08/04/19 09:01 DC 08/04/19 08:04 Lactated Ringer's 1,000 ml @ 100 mls/hr Q10H IV 07/31/19 18:00 08/04/19 08:11 DC 08/03/19 23:43 Lactated Ringer's 1,000 ml @ 150 mls/hr Q6H40M IV 07/31/19 00:45 07/31/19 17:34 DC 07/31/19 09:36 Lactobacillus Acidophilus (Bacid) 1 ea BIDWM PO 08/01/19 18:00 08/04/19 08:04 Meropenem 1 gm/IV Miscellaneous Supplies 50 ml @ 100 mls/hr Q8H IV 08/03/19 20:00 08/04/19 03:31 Meropenem 1 gm/IV Miscellaneous Supplies 50 ml @ 100 mls/hr Q8H IV 07/30/19 22:00 07/31/19 17:46 DC 07/31/19 14:07 Metoclopramide HCl (REGLAN INJection) 5 mg Q6HP PRN IV NAUSEA OR VOMITING 08/03/19 04:30 08/03/19 17:59 DC 08/03/19 10:43 Metronidazole 500 mg/IV Miscellaneous Supplies 100 ml @ 100 mls/hr Q8H IV 08/04/19 09:00 08/04/19 08:43 Morphine Sulfate (Morphine Sulfate Inj) 1 mg Q6HP PRN IV MODERATE PAIN (PS 5-7) 07/31/19 11:00 08/04/19 02:15 Omeprazole (PriLOSEC) 40 mg BID PO 08/01/19 21:00 08/04/19 08:03 Ondansetron HCl (ZOFRAN INJection) 4 mg Q6H PRN IV NAUSEA OR VOMITING 07/30/19 21:00 08/04/19 10:55 Pantoprazole Sodium (Protonix) 40 mg DAILY IV 07/31/19 09:00 08/01/19 09:38 DC 08/01/19 09:07 Potassium Chloride 10 meq/ IV Miscellaneous Supplies 100 ml @ 100 mls/hr Q1H IV 08/03/19 12:00 08/03/19 15:59 DC 08/03/19 17:29 Potassium Phosphate (K-Phos Original) 750 mg NOW PO 07/31/19 00:45 07/31/19 00:45 DC Promethazine HCl (Phenergan) 25 mg Q6HP PRN PO NAUSEA 07/31/19 17:45 08/04/19 01:13 Ramelteon (Rozerem) 8 mg QHS PRN PO INSOMNIA 08/01/19 21:00 08/04/19 01:13 Sodium Chloride 1,000 ml @ 100 mls/hr Q10H IV 08/04/19 08:30 08/04/19 08:43 Sodium Chloride (Nacl 0.9%) 2,410 ml BOLUS STAT IV 07/30/19 19:41 07/30/19 19:47 DC 07/30/19 20:00 Sodium Chloride (Saline Lock Flush) 2 ml ASDIRECTED PRN IV SEE LABEL COMMENTS 07/31/19 17:45 Sodium Chloride (Saline Lock Flush) 2 ml SLF IV 07/31/19 22:00 08/04/19 06:22 Vancomycin HCl 1000 mg/IV Miscellaneous Supplies 1 each/ Dextrose 270 ml @ 270 mls/hr Q6H IV 08/02/19 15:00 08/03/19 11:53 DC 08/03/19 08:32 Vancomycin HCl 1000 mg/IV Miscellaneous Supplies 1 each/ Dextrose 270 ml @ 270 mls/hr Q8H IV 07/31/19 01:00 07/31/19 17:46 DC 07/31/19 17:38 Allergies Coded Allergies: vancomycin (Verified Allergy, Intermediate, patchy upper body rash, 08/03/19) Clarisse Lucio MD Aug 04, 2019 12:21
--- NOTE | 2019-08-04 13:01 | REP ---
REASON FOR EXAM: Followup. COMPARISON EXAMINATIONS: 08/03/2019, 07/30/2019, and 11/10/2015. CONTRAST: 100 mL [id number]. REASON: Increasing right lower quadrant pain. Oral bowel preparatory contrast is also administered prior to the exam. There is no significant change in appearance of the lung bases. Patchy and asymmetric ground-glass opacities are noted, completely unchanged from yesterday. No pleural or pericardial effusions have developed. There is no change in the liver, spleen, gallbladder, pancreas, adrenal glands, or kidneys. There is thickening of the mcgowan of the cecum with a tiny amount of fluid within Morison pouch and within the right paracolic gutter. There is no change in the appearance of the appendix. No fatty infiltration has developed in the mesoappendix. The abdominal aorta and para-aortic regions are again seen to be within normal limits. There is no evidence of free intraperitoneal air. CT PELVIS: The bowel loops and their mesenteries are essentially unchanged. No pelvic mass or adenopathy has developed. There is no change in the osseous structures. IMPRESSION: 1. Lung bases, as described above. 2. The cecal mcgowan appear thickened, consistent with colitis. There is no change in the appearance of the appendix. 3. Other findings as described above. Electronically Signed by Guillermo Machuca DO 08/04/2019 01:51 P
[2019-08-04 16:00] VITALS: BP 129/80
[2019-08-04] MEDS: AZITHROMYCIN INJ 500 MG, VIAL MATE ADAPTER 1 EACH in D5W 250 ML IV SCH (17:33)
[2019-08-04 20:00] VITALS: BP 139/88; O2SAT 94
[2019-08-04 20:06] VITALS: O2SAT 95
[2019-08-05] VITALS (9 sets, daily range): BP systolic 131–144; BP diastolic 79–89; O2SAT 95–98
[2019-08-05] MEDS: ONDANSETRON 4MG/2ML VIAL (J2405) IV PRN ×2 (00:08→06:21)
[2019-08-05] MEDS: ACETAMINOPHEN TAB 650MG DOSE (2X325MG) PO PRN ×3 (00:08→21:21)
[2019-08-05] MEDS: metroNIDAZOLE 500 MG in IV 1 EA IV SCH ×2 (01:00→08:27)
[2019-08-05] MEDS: DICYCLOMINE 10 MG CAP PO PRN ×2 (01:34→17:24)
[2019-08-05] MEDS: PROMETHAZINE 25 MG TAB PO PRN ×3 (01:34→21:21)
[2019-08-05] MEDS: DRONABINOL 2.5 MG CAP (MARINOL) PO PRN ×3 (03:03→20:07)
[2019-08-05] MEDS: MORPHINE 2 MG/ML 1ML VIAL (J2270) IV PRN (03:04)
[2019-08-05] MEDS: MEROPENEM INJ 1 GM in IV 1 EA IV SCH ×2 (03:50→12:25)
[2019-08-05] MEDS: NS 1,000 ML IV SCH (04:40)
[2019-08-05 04:51] LABS: BASO % 0.3 % (0.0-1.0); EOS # 0.1 10^3/uL (0.0-0.5); EOS % 0.5 % (0.0-3.0); HEMATOCRIT 31.7 % (42.0-52.0); HEMOGLOBIN 10.7 g/dl (13.5-17.5); LYMPH # 1.1 10^3/uL (1.5-5.0); LYMPH % 7.3 % (24.0-44.0); MEAN CORPUSCULAR HEMOGLOBIN 31.3 pg (27.0-33.0); MEAN CORPUSCULAR HGB CONC 33.8 g/dl (32.0-36.5); MEAN CORPUSCULAR VOLUME 92.7 fl (80.0-96.0); MONO # 0.4 10^3/uL (0.0-0.8); MONO % 2.4 % (0.0-5.0); NEUTROPHILS # 13.6 10^3/uL (1.5-8.5); NEUTROPHILS % 88.5 % (36.0-66.0); PLATELET COUNT, AUTOMATED 329 10^3/uL (150-450); RED BLOOD COUNT 3.42 10^6/uL (4.30-6.10); WHITE BLOOD COUNT 15.4 10^3/uL (4.0-10.0)
[2019-08-05 05:01] LABS: INR 1.68; PARTIAL THROMBOPLASTIN TIME 35.2 SECONDS (25.0-38.4); PROTHROMBIN TIME 19.6 SECONDS (11.8-14.0)
[2019-08-05 05:05] LABS: D-DIMER QUANT 1094.66 ng/ml (<500)
[2019-08-05 05:14] LABS: ALBUMIN 1.9 GM/DL (3.2-5.2); ALT/SGPT 32 U/L (12-78); BILIRUBIN,TOTAL 0.4 MG/DL (0.2-1.0); BLOOD UREA NITROGEN 8 MG/DL (7-18); CALCIUM LEVEL 8.5 MG/DL (8.5-10.1); CARBON DIOXIDE LEVEL 30 MEQ/L (21-32); CHLORIDE LEVEL 98 MEQ/L (98-107); CREATININE FOR GFR 0.56 MG/DL (0.70-1.30); GLOMERULAR FILTRATION RATE > 60.0 (>60); GLUCOSE, FASTING 108 MG/DL (70-100); SODIUM LEVEL 134 MEQ/L (136-145); TOTAL PROTEIN 6.2 GM/DL (6.4-8.2)
[2019-08-05 05:23] LABS: FERRITIN 630 NG/ML (26-388); LDH LACTATE DEHYDROGENASE 402 U/L (87-241); NT-PRO BNP 433 PG/ML (<125); TROPONIN I < 0.02 NG/ML (< 0.10)
[2019-08-05] MEDS: SLF 3 ML SYR IV SCH ×3 (06:00→22:08)
[2019-08-05] MEDS ORDERED: POTASSIUM CHL PWD 20 MEQ PACKET PO ONE (07:00)
[2019-08-05] MEDS: LACTOBACILLUS ACIDOPHILUS CAP (BACID) PO SCH ×2 (07:35→17:24)
[2019-08-05] MEDS: COMBIVENT RESPIMAT 100-20MCG INHALER 4GM INH SCH ×4 (07:49→20:13)
--- NOTE | 2019-08-05 07:52 | ECGEPIP ---
[facility] Test Date: 2019-08-05 Pat Name: JUAN TRAORE Department: Room: [place] [address] Gender: Male Commissions Analyst: ERIS : 1995 Requested By: Clarisse Bowser Order Number: [id number] Reading MD: Paulo Chavez Measurements Intervals Wilbur Rate: 89 P: 39 [place]: 158 QRS: 66 QRSD: 110 T: 40 QT: 374 QTc: 457 Interpretive Statements SINUS RHYTHM subtle interventricular conduction disturbance Nonspecific ST/T wave abnormalities with slight prolongation of corrected QT interval Minimal change from 08/04/19. Electronically Signed on 08-05-2019 7:52:33 EDT by Paulo Chavez
[2019-08-05] MEDS: KCL 20MEQ in NS 1000ML 1,000 ML IV SCH ×3 (08:27→22:09)
[2019-08-05] MEDS: KCL 10MEQ/100ML SWI (KRUN) 10 MEQ in IV 1 EA IV SCH ×2 (08:27→09:00)
[2019-08-05] MEDS: ENOXAPARIN 40 MG/0.4 ML SYRINGE (J1650) SC SCH ×2 (08:28→21:00)
[2019-08-05] MEDS: HYDROXYCHLOROQUINE 200 MG TAB PO SCH ×2 (08:29→20:06)
[2019-08-05] MEDS: ATOMOXETINE HCL 40 MG CAP (STRATTERA) PO SCH (08:29)
[2019-08-05] MEDS: OMEPRAZOLE 20 MG CAP PO SCH ×2 (08:29→20:06)
[2019-08-05] MEDS: MESALAMINE 250 MG CR CAP PO SCH ×4 (09:00→20:05)
[2019-08-05] MEDS: ONDANSETRON 4MG/2ML VIAL (J2405) IV SCH ×2 (12:25→17:24)
[2019-08-05] MEDS: METOCLOPRAMIDE INJ 10MG/2ML VIAL (J2765) IV SCH ×2 (12:26→17:24)
[2019-08-05] MEDS: AZITHROMYCIN INJ 500 MG, VIAL MATE ADAPTER 1 EACH in D5W 250 ML IV SCH ×2 (17:23→17:55)
[2019-08-05 17:45] LABS: BASO % 0.2 % (0.0-1.0); EOS # 0.1 10^3/uL (0.0-0.5); EOS % 0.9 % (0.0-3.0); HEMOGLOBIN 11.5 g/dl (13.5-17.5); LYMPH # 1.2 10^3/uL (1.5-5.0); LYMPH % 8.1 % (24.0-44.0); MEAN CORPUSCULAR HEMOGLOBIN 31.8 pg (27.0-33.0); MEAN CORPUSCULAR HGB CONC 34.8 g/dl (32.0-36.5); MEAN CORPUSCULAR VOLUME 91.2 fl (80.0-96.0); MONO # 0.3 10^3/uL (0.0-0.8); MONO % 2.1 % (0.0-5.0); NEUTROPHILS # 12.7 10^3/uL (1.5-8.5); PLATELET COUNT, AUTOMATED 378 10^3/uL (150-450); RED BLOOD COUNT 3.62 10^6/uL (4.30-6.10); WHITE BLOOD COUNT 14.6 10^3/uL (4.0-10.0)
[2019-08-05 18:05] LABS: INR 1.7; PARTIAL THROMBOPLASTIN TIME 34.4 SECONDS (25.0-38.4); PROTHROMBIN TIME 19.7 SECONDS (11.8-14.0)
[2019-08-05 18:08] LABS: D-DIMER QUANT 1308.25 ng/ml (<500)
[2019-08-05 18:14] LABS: FERRITIN 669 NG/ML (26-388); LDH LACTATE DEHYDROGENASE 407 U/L (87-241); NT-PRO BNP 491 PG/ML (<125); TROPONIN I < 0.02 NG/ML (< 0.10)
[2019-08-05] MEDS: RAMELTEON 8 MG TAB (ROZEREM) PO PRN (20:07)
--- NOTE | 2019-08-05 22:14 | IPNPDOC ---
Date Seen The patient was seen on 08/05/19. Progress Note SUBJECTIVE: Nausea, abdominal pain improved. WBC 15 from 20. D/sanaz all abx, started pentasa and scheduled antiemetics. Tolerating clears better and encourage to advance AT. On 1 L NC this AM. Febrile early this AM. Denies increasead shortness of breath. OBJECTIVE: VITAL SIGNS: Please see below PHYSICAL EXAMINATION: CONSTITUTIONAL: Resting in bed, in no acute distress, AAO x 3 EYES: PERRLA, EOM intact HENT, MOUTH: Normocephalic, atraumatic, dry mucous membranes NECK: SUPPLE, no JVD, no lymphadenopathy, no carotid bruit CV: Regular rate and rhythm, S1S2 normal, no murmurs/rubs/gallops RESPIRATORY: CTAB, No rales/wheezes GI: mild tenderness in abdomen diffusely- improved compared to 08/04/19, BS positive in 4 quadrants, soft, nondistended, no rebound or guarding, no organomegaly : Deferred MUSCULOSKELETAL: Normal ROM. No cyanosis, clubbing, swelling, joint deformity, extremity edema INTEGUMENTARY: No rash, intact, no lesions, no erythema NEUROLOGIC: Cranial Nerves II-XII are intact, no focal deficits PSYCHIATRIC: Mood and affect are normal CURRENT MEDICATIONS: Please see below LABORATORY DATA: Please see below Microbiology: Initial GI panel 07/30/19: Neg Initial BCx - NG Repeat BCx - pending C. diff test- neg IMAGING: CT with contrast: Suspect colitis ASSESSMENT: The patient is a 24-year-old male admitted under inpatient status for bilateral community acquired pneumonia, ruling out COVID 19 (first test neg, repeating), colitis. PLAN: 1. Community acquired PNA, r/o COVID 19. On 1 L NC. WBC 15K. Decreased CRP, d- dimer, fibrinogen. F/u repeat COVID test. Per protocol follow-up CRP, CBC with differential, ferritin, pro-calcitonin, LDH, BNP, troponin, d-dimer, fibrinogen, PT/PTT every 12 hours. Follow up interleukin-6 (send out). QTC <500 on ECG this AM. C/w daily ECG and telemetry, incentive spirometer Q2 hrs while awake, contact and droplet precautions, oxygen monitoring. C/w combivent QID, alb uterol PRN, hydroxychloroquine, Enoxaparin 0.5 mg/kg BID. Stopped abx per ID. 2. Presumptive COVID 19. F/u plan as above. 3. Colitis. Hx of IBS. Discussed case with Dr. Pickard. Scheduled pentasa. Per ID, d/c all abx. C/w IVFs, advance clear liquid diet. Follows with GI o/p. 4. Diarrhea/Intractable vomiting likely secondary to colitis. Possibly secondary to or multifactorial to cyclical vomiting syndrome vs. colitis vs. possible COVID 19. Improved compared to 08/04/19. Hx of IBS. Scheduled antiemetics, started reglan ATC. C/w marinol today, IVFs, zofran, phenergan. 5. Hypokalemia likely due to GI loss vomiting/diarrhea. S/p 40 mEq supplement, started on NS with KCL . F/u potassium daily. 6. Hx of hiatal hernia. Follows with GI physician as outpatient. PPI 7. GERD. PPI BID. 8. DVT px. Lovenox BID. DISPOSITION: Patient is currently admitted under inpatient status. Plan is discharge home when medically improved. VS, I&O, 24H, Fishbone Vital Signs/I&O Vital Signs Date Time Temp Pulse Resp B/P (MAP) Pulse Ox O2 Delivery O2 Flow Rate FiO2 08/05/19 20:00 96 Nasal Cannula 2.0 08/05/19 20:00 99.0 96 18 136/81 (99) I&O- Last 24 Hours up to 6 AM 08/05/19 06:00 Intake Total 5095 ml Output Total 3225 ml Balance 1870 ml Laboratory Data 24H LABS Laboratory Tests 2 08/05/19 04:37: Immature Granulocyte % (Auto) 1.0, Neutrophils (%) (Auto) 88.5H, Lymphocytes (%) (Auto) 7.3L, Monocytes (%) (Auto) 2.4, Eosinophils (%) (Auto) 0.5, Basophils (%) (Auto) 0.3, Neutrophils # (Auto) 13.6H, Lymphocytes # (Auto) 1.1L, Monocytes # (Auto) 0.4, Eosinophils # (Auto) 0.1, Basophils # (Auto) 0.0, Nucleated Red Blood Cells % (auto) 0.0, Prothrombin Time 19.6H, Prothromb Time International Ratio 1.68, Activated Partial Thromboplast Time 35.2, Fibrinogen 891H, D-Dimer, Quantitative 1094.66H, Anion Gap 6L, Glomerular Filtration Rate > 60.0, Calcium Level 8.5, Ferritin 630H, Total Bilirubin 0.4, Aspartate Amino Transf (AST/SGOT) 35, Alanine Aminotransferase (ALT/SGPT) 32, Alkaline Phosphatase 56, Lactate Dehydrogenase 402H, Troponin I < 0.02, C-Reactive Protein, Quantitative 30.50H, AR-Cnp-O-Type Natriuretic Peptide 433H, Total Protein 6.2L, Albumin 1.9L, Albumin/Globulin Ratio 0.44L 08/05/19 17:29: Immature Granulocyte % (Auto) 1.7, Neutrophils (%) (Auto) 87.0H, Lymphocytes (%) (Auto) 8.1L, Monocytes (%) (Auto) 2.1, Eosinophils (%) (Auto) 0.9, Basophils (%) (Auto) 0.2, Neutrophils # (Auto) 12.7H, Lymphocytes # (Auto) 1.2L, Monocytes # (Auto) 0.3, Eosinophils # (Auto) 0.1, Basophils # (Auto) 0.0, Nucleated Red Blood Cells % (auto) 0.0 08/05/19 17:30: Prothrombin Time 19.7H, Prothromb Time International Ratio 1.70, Activated Partial Thromboplast Time 34.4, Fibrinogen 1176H, D-Dimer, Quantitative 1308.25H, Ferritin 669H, Lactate Dehydrogenase 407H, Troponin I < 0.02, C- Reactive Protein, Quantitative 25.50H, RZ-Dco-H-Type Natriuretic Peptide 491H, Magnesium Level 2.0 CBC/BMP Laboratory Tests 08/05/19 04:37 08/05/19 17:29 Microbiology Microbiology 08/03/19 Coronavirus COVID-19 PCR ([facility]), Received Pending 08/03/19 Blood Culture - Preliminary, Resulted No Growth after 48 hours. All Specime... 08/03/19 Blood Culture - Preliminary, Resulted No Growth after 48 hours. All Specime... 08/01/19 Gram Stain - Final, Complete 08/01/19 Sputum Culture - Final, Complete 07/31/19 Gastrointestinal Tract Panel (PCR) - Final, Complete 07/30/19 Blood Culture - Final, Complete NO GROWTH AFTER 5 DAYS 07/30/19 Blood Culture - Final, Complete NO GROWTH AFTER 5 DAYS 07/30/19 Coronavirus COVID-19 PCR ([facility]) - Final, Complete 07/30/19 Respiratory Panel (PCR) - Final, Complete Current Medications Current Medications Medications (Trade) Dose Ordered Sig/Anupama Route PRN Reason Start Time Stop Time Status Last Admin Dose Admin Acetaminophen (Tylenol Tab) 650 mg Q4H PRN PO PAIN OR FEVER 07/30/19 19:45 08/05/19 21:21 Albuterol Sulfate (Proventil Neb) 2.5 mg RQ2H PRN NEB SOB/WHEEZING 07/31/19 17:45 Cancel Albuterol Sulfate (Proventil, Ventolin Hfa) 2 puff Q2HP PRN INH SHORTNESS OF BREATH 08/01/19 07:00 08/01/19 14:21 Albuterol/ Ipratropium (Combivent Respimat 100-20mcg) 1 puff RQID INH 08/03/19 20:00 08/05/19 20:13 Albuterol/ Ipratropium (Duoneb (Ipr 0.5mg/Alb 2.5mg)) 3 ml RQ8H NEB 08/02/19 08:00 08/03/19 17:59 DC 08/03/19 07:13 Albuterol/ Ipratropium (Duoneb (Ipr 0.5mg/Alb 2.5mg)) 3 ml RQ8H NEB 08/01/19 16:00 Cancel Atomoxetine HCl (Strattera (Atomoxetine)) 80 mg DAILY PO 07/31/19 09:00 08/05/19 08:29 Azithromycin 500 mg/IV Miscellaneous Supplies 1 each/ Dextrose 255 ml @ 255 mls/hr Q24H IV 08/03/19 18:00 08/05/19 17:55 Azithromycin 500 mg/IV Miscellaneous Supplies 1 each/ Dextrose 255 ml @ 255 mls/hr Q24H IV 07/31/19 19:00 08/02/19 08:10 DC 08/01/19 18:31 Ceftriaxone Sodium 1 gm/ Dextrose 50 ml @ 100 mls/hr Q24H IV 07/31/19 18:00 08/03/19 17:59 DC 08/03/19 17:29 Diatrizoate Meglum/ Diatrizoate Sod (Gastrografin) 10 ml Q30M PO 08/04/19 09:45 08/04/19 10:16 DC 08/04/19 10:55 Dicyclomine HCl (Bentyl) 10 mg Q8HP PRN PO CRAMPS 07/31/19 06:15 08/05/19 17:24 Docusate Sodium (Colace) 100 mg BID PO 07/30/19 21:00 08/03/19 17:59 DC 08/03/19 08:32 Dronabinol (Marinol) 5 mg QIDP PRN PO NAUSEA 08/03/19 12:00 08/05/19 20:07 Enoxaparin Sodium (Lovenox) 40 mg BID SC 08/03/19 21:00 08/05/19 08:28 Enoxaparin Sodium (Lovenox) 40 mg DAILY SC 07/31/19 09:00 08/03/19 17:59 DC 08/03/19 08:31 Home Med (Med Rec Complete!) ASDIRECTED XX 07/30/19 20:15 07/30/19 20:03 DC Hydroxychloroquine Sulfate (Plaquenil) 200 mg BID PO 08/04/19 21:00 08/08/19 09:01 08/05/19 20:06 Hydroxychloroquine Sulfate (Plaquenil) 400 mg BID PO 08/03/19 18:00 08/04/19 09:01 DC 08/04/19 08:04 Lactated Ringer's 1,000 ml @ 100 mls/hr Q10H IV 07/31/19 18:00 08/04/19 08:11 DC 08/03/19 23:43 Lactated Ringer's 1,000 ml @ 150 mls/hr Q6H40M IV 07/31/19 00:45 07/31/19 17:34 DC 07/31/19 09:36 Lactobacillus Acidophilus (Bacid) 1 ea BIDWM PO 08/01/19 18:00 08/05/19 17:24 Meropenem 1 gm/IV Miscellaneous Supplies 50 ml @ 100 mls/hr Q8H IV 08/03/19 20:00 08/05/19 13:30 DC 08/05/19 12:25 Meropenem 1 gm/IV Miscellaneous Supplies 50 ml @ 100 mls/hr Q8H IV 07/30/19 22:00 07/31/19 17:46 DC 07/31/19 14:07 Mesalamine (Pentasa) 1,000 mg QID PO 08/05/19 09:00 08/05/19 20:05 Metoclopramide HCl (REGLAN INJection) 5 mg Q6HP PRN IV NAUSEA OR VOMITING 08/03/19 04:30 08/03/19 17:59 DC 08/03/19 10:43 Metoclopramide HCl (REGLAN INJection) 10 mg Q6H IV 08/05/19 12:00 08/05/19 17:24 Metronidazole 500 mg/IV Miscellaneous Supplies 100 ml @ 100 mls/hr Q8H IV 08/04/19 09:00 08/05/19 13:30 DC 08/05/19 08:27 Morphine Sulfate (Morphine Sulfate Inj) 1 mg Q6HP PRN IV MODERATE PAIN (PS 5-7) 07/31/19 11:00 08/05/19 03:04 Omeprazole (PriLOSEC) 40 mg BID PO 08/01/19 21:00 08/05/19 20:06 Ondansetron HCl (ZOFRAN INJection) 4 mg Q6H IV 08/05/19 12:00 08/05/19 17:24 Ondansetron HCl (ZOFRAN INJection) 4 mg Q6H PRN IV NAUSEA OR VOMITING 07/30/19 21:00 08/05/19 09:22 DC 08/05/19 06:21 Pantoprazole Sodium (Protonix) 40 mg DAILY IV 07/31/19 09:00 08/01/19 09:38 DC 08/01/19 09:07 Potassium Chloride 10 meq/ IV Miscellaneous Supplies 100 ml @ 100 mls/hr Q1H IV 08/03/19 12:00 08/03/19 15:59 DC 08/03/19 17:29 Potassium Chloride 10 meq/ IV Miscellaneous Supplies 100 ml @ 100 mls/hr Q1H IV 08/05/19 08:00 08/05/19 09:59 DC 08/05/19 09:00 Potassium Chloride/Sodium Chloride 1,000 ml @ 150 mls/hr Q6H40M IV 08/05/19 07:00 08/05/19 08:27 Potassium Phosphate (K-Phos Original) 750 mg NOW PO 07/31/19 00:45 07/31/19 00:45 DC Promethazine HCl (Phenergan) 25 mg Q6HP PRN PO NAUSEA 07/31/19 17:45 08/05/19 21:21 Ramelteon (Rozerem) 8 mg QHS PRN PO INSOMNIA 08/01/19 21:00 08/05/19 20:07 Sodium Chloride 1,000 ml @ 100 mls/hr Q10H IV 08/04/19 08:30 08/05/19 07:45 DC 08/05/19 04:40 Sodium Chloride (Nacl 0.9%) 2,410 ml BOLUS STAT IV 07/30/19 19:41 07/30/19 19:47 DC 07/30/19 20:00 Sodium Chloride (Saline Lock Flush) 2 ml ASDIRECTED PRN IV SEE LABEL COMMENTS 07/31/19 17:45 08/05/19 12:27 Sodium Chloride (Saline Lock Flush) 2 ml SLF IV 07/31/19 22:00 08/05/19 14:00 Vancomycin HCl 1000 mg/IV Miscellaneous Supplies 1 each/ Dextrose 270 ml @ 270 mls/hr Q6H IV 08/02/19 15:00 08/03/19 11:53 DC 08/03/19 08:32 Vancomycin HCl 1000 mg/IV Miscellaneous Supplies 1 each/ Dextrose 270 ml @ 270 mls/hr Q8H IV 07/31/19 01:00 07/31/19 17:46 DC 07/31/19 17:38 Allergies Coded Allergies: vancomycin (Verified Allergy, Intermediate, patchy upper body rash, 08/03/19) Clarisse Lucio MD Aug 05, 2019 22:14
[2019-08-06] VITALS: BP 127/79; O2SAT 96
[2019-08-06] MEDS: METOCLOPRAMIDE INJ 10MG/2ML VIAL (J2765) IV SCH ×2 (00:07→05:52)
[2019-08-06] MEDS: ONDANSETRON 4MG/2ML VIAL (J2405) IV SCH ×2 (00:07→05:52)
[2019-08-06] MEDS: MORPHINE 2 MG/ML 1ML VIAL (J2270) IV PRN (00:31)
[2019-08-06] MEDS: DICYCLOMINE 10 MG CAP PO PRN (02:14)
[2019-08-06] MEDS: ACETAMINOPHEN TAB 650MG DOSE (2X325MG) PO PRN ×2 (02:14→05:51)
[2019-08-06] MEDS: KCL 20MEQ in NS 1000ML 1,000 ML IV SCH (03:00)
[2019-08-06 04:00] VITALS: BP 130/76; O2SAT 99
[2019-08-06] MEDS: DRONABINOL 2.5 MG CAP (MARINOL) PO PRN (04:23)
[2019-08-06 04:34] LABS: BASO # 0.1 10^3/uL (0.0-0.2); BASO % 0.3 % (0.0-1.0); EOS # 0.1 10^3/uL (0.0-0.5); EOS % 0.8 % (0.0-3.0); HEMATOCRIT 33.2 % (42.0-52.0); HEMOGLOBIN 11.3 g/dl (13.5-17.5); LYMPH # 0.9 10^3/uL (1.5-5.0); LYMPH % 5.6 % (24.0-44.0); MEAN CORPUSCULAR HEMOGLOBIN 31.4 pg (27.0-33.0); MEAN CORPUSCULAR VOLUME 92.2 fl (80.0-96.0); MONO # 0.4 10^3/uL (0.0-0.8); MONO % 2.4 % (0.0-5.0); NEUTROPHILS % 89.4 % (36.0-66.0); PLATELET COUNT, AUTOMATED 398 10^3/uL (150-450); WHITE BLOOD COUNT 15.7 10^3/uL (4.0-10.0)
[2019-08-06 04:55] LABS: INR 1.76; PARTIAL THROMBOPLASTIN TIME 36.6 SECONDS (25.0-38.4); PROTHROMBIN TIME 20.3 SECONDS (11.8-14.0)
[2019-08-06 04:58] LABS: D-DIMER QUANT 1300.54 ng/ml (<500)
[2019-08-06 04:58] LABS: ALT/SGPT 25 U/L (12-78); BILIRUBIN,TOTAL 0.4 MG/DL (0.2-1.0); BLOOD UREA NITROGEN 6 MG/DL (7-18); CARBON DIOXIDE LEVEL 28 MEQ/L (21-32); CHLORIDE LEVEL 102 MEQ/L (98-107); CREATININE FOR GFR 0.53 MG/DL (0.70-1.30); GLOMERULAR FILTRATION RATE > 60.0 (>60); GLUCOSE, FASTING 103 MG/DL (70-100); POTASSIUM SERUM 3.5 MEQ/L (3.5-5.1); SODIUM LEVEL 136 MEQ/L (136-145); TOTAL PROTEIN 5.3 GM/DL (6.4-8.2)
[2019-08-06 05:22] LABS: FERRITIN 629 NG/ML (26-388); LDH LACTATE DEHYDROGENASE 340 U/L (87-241); NT-PRO BNP 355 PG/ML (<125); TROPONIN I < 0.02 NG/ML (< 0.10)
[2019-08-06] MEDS: SLF 3 ML SYR IV SCH (05:52)
[2019-08-06 08:00] VITALS: BP 134/83; O2SAT 97
[2019-08-06] MEDS: COMBIVENT RESPIMAT 100-20MCG INHALER 4GM INH SCH (08:00)
[2019-08-06 08:04] VITALS: O2SAT 94
[2019-08-06] MEDS: ALBUTEROL 90 MCG/ACT 8GM HFA INHALER INH PRN (08:04)
[2019-08-06] MEDS: ENOXAPARIN 40 MG/0.4 ML SYRINGE (J1650) SC SCH (08:25)
[2019-08-06] MEDS: OMEPRAZOLE 20 MG CAP PO SCH (08:27)
[2019-08-06] MEDS: LACTOBACILLUS ACIDOPHILUS CAP (BACID) PO SCH (08:27)
[2019-08-06] MEDS: HYDROXYCHLOROQUINE 200 MG TAB PO SCH (08:27)
[2019-08-06] MEDS: MESALAMINE 250 MG CR CAP PO SCH (08:27)
[2019-08-06] MEDS: ATOMOXETINE HCL 40 MG CAP (STRATTERA) PO SCH (08:28)
--- NOTE | 2019-08-06 12:50 | DS.PDOC ---
Discharge Summary General Date of Admission Jul 30, 2019 at 19:41 Date of Discharge 08/06/19 Discharge Summary PROCEDURES PERFORMED DURING STAY: None. ADMITTING DIAGNOSES: 1. Abdominal pain. Dyspnea. DISCHARGE DIAGNOSES: 1. Flareup of IBS, Coreg 19 ruled out, cyclical vomiting syndrome, history of marijuana abuse. COMPLICATIONS/CHIEF COMPLAINT: Acute Dyspnea,Diarrhea,Sirs,Vomiting. HISTORY OF PRESENT ILLNESS: This is a 24-year-old male who presented to the hospital earlier on today with complaints of nausea and nonbloody emesis. It was felt that his symptoms may be due to cyclic vomiting syndrome because he uses THC, and he was sent home. He returned this evening with complaints of shortness of breath, fever as high as 101.1 , and persistent vomiting. He reports being unable to keep "anything down". Over the last few weeks he has been following the retirement in place orders except for a visit to a [employer] about a week ago. He has been working from home remotely, and lives with his parents. . HOSPITAL COURSE: Patient was admitted with the diagnosis of possible cyclic vo miting syndrome secondary to marijuana abuse. Patient was also complained of fever, shortness of breath and fever. Parents also was admitted to rule out covert 19. : 19 was ruled out on a nasopharyngeal swab. Patient is completely asymptomatic, afebrile, his laboratory work is essentially negative and a CT arteriogram that was possible colitis but patient does have a history of IBS in the past, patient wishes to be discharged today. Patient will be discharged home on progressive diet and follow with his PCP and GI as an outpatient in one week. DISCHARGE MEDICATIONS: Please see below. ALLERGIES: Please see below. PHYSICAL EXAMINATION ON DISCHARGE: VITAL SIGNS: Please see below. GENERAL: Within normal limits HEENT: PERRLA, extraocular muscles intact NECK: Supple. Negative JVD, negative lymphadenopathy CARDIOVASCULAR EXAMINATION: S1, S2, regular RESPIRATORY EXAMINATION: Clear to A&P ABDOMINAL EXAMINATION: Benign EXTREMITIES: No clubbing, cyanosis, edema SKIN: Normal NEUROLOGICAL EXAMINATION: . No focal motor sensory deficit PSYCHIATRIC EXAMINATION: Normal LABORATORY DATA: Please see below. IMAGING: CT abdomen and pelvis:1. Lung bases, as described above. 2. The cecal mcgowan appear thickened, consistent with colitis. There is no change in the appearance of the appendix. 3. Other findings as described above. PROGNOSIS: Good ACTIVITY: As tolerated. DIET: As tolerated DISCHARGE PLAN: Follow with PCP and GI as an outpatient DISPOSITION: 01 Home, Self-Care. DISCHARGE INSTRUCTIONS: 1. As above. ITEMS TO FOLLOWUP ON ON OUTPATIENT: 1. As above. DISCHARGE CONDITION: Stable. TIME SPENT ON DISCHARGE: 38 minutes. Vital Signs/I&Os Vital Signs Date Time Temp Pulse Resp B/P (MAP) Pulse Ox O2 Delivery O2 Flow Rate FiO2 08/06/19 08:04 94 Room Air 08/06/19 08:00 99.2 109 20 134/83 (100) 08/06/19 04:00 2.0 I&O- Last 24 Hours up to 6 AM 08/06/19 06:00 Intake Total 1640 ml Output Total 4725 ml Balance -3085 ml Laboratory Data Labs 24H Laboratory Tests 2 08/05/19 17:29: Immature Granulocyte % (Auto) 1.7, Neutrophils (%) (Auto) 87.0H, Lymphocytes (%) (Auto) 8.1L, Monocytes (%) (Auto) 2.1, Eosinophils (%) (Auto) 0.9, Basophils (%) (Auto) 0.2, Neutrophils # (Auto) 12.7H, Lymphocytes # (Auto) 1.2L, Monocytes # (Auto) 0.3, Eosinophils # (Auto) 0.1, Basophils # (Auto) 0.0, Nucleated Red Blood Cells % (auto) 0.0 08/05/19 17:30: Prothrombin Time 19.7H, Prothromb Time International Ratio 1.70, Activated Partial Thromboplast Time 34.4, Fibrinogen 1176H, D-Dimer, Quantitative 1308.25H, Magnesium Level 2.0, Ferritin 669H, Lactate Dehydrogenase 407H, Troponin I < 0.02, C-Reactive Protein, Quantitative 25.50H, NG-Aku-V-Type Natriuretic Peptide 491H 08/06/19 04:22: Immature Granulocyte % (Auto) 1.5, Neutrophils (%) (Auto) 89.4H, Lymphocytes (%) (Auto) 5.6L, Monocytes (%) (Auto) 2.4, Eosinophils (%) (Auto) 0.8, Basophils (%) (Auto) 0.3, Neutrophils # (Auto) 14.0H, Lymphocytes # (Auto) 0.9L, Monocytes # (Auto) 0.4, Eosinophils # (Auto) 0.1, Basophils # (Auto) 0.1, Nucleated Red Blood Cells % (auto) 0.0, Anion Gap 6L, Glomerular Filtration Rate > 60.0, Calcium Level 8.0L, Total Bilirubin 0.4, Aspartate Amino Transf (AST/SGOT) 22, Alanine Aminotransferase (ALT/SGPT) 25, Alkaline Phosphatase 46, Total Protein 5.3L, Albumin 2.0L, Albumin/Globulin Ratio 0.61L 08/06/19 04:24: Prothrombin Time 20.3H, Prothromb Time International Ratio 1.76, Activated Partial Thromboplast Time 36.6, Fibrinogen 1086H, D-Dimer, Quantitative 1300.54H, Ferritin 629H, Lactate Dehydrogenase 340H, Troponin I < 0.02, C- Reactive Protein, Quantitative 23.50H, YB-Pto-Z-Type Natriuretic Peptide 355H CBC/BMP Laboratory Tests 08/05/19 17:29 08/06/19 04:22 Microbiology Microbiology 08/03/19 Coronavirus COVID-19 PCR ([facility]) - Final, Complete 08/03/19 Blood Culture - Preliminary, Resulted No Growth after 72 hours. All specime... 08/03/19 Blood Culture - Preliminary, Resulted No Growth after 72 hours. All specime... 08/01/19 Gram Stain - Final, Complete 08/01/19 Sputum Culture - Final, Complete 07/31/19 Gastrointestinal Tract Panel (PCR) - Final, Complete 07/30/19 Blood Culture - Final, Complete NO GROWTH AFTER 5 DAYS 07/30/19 Blood Culture - Final, Complete NO GROWTH AFTER 5 DAYS 07/30/19 Coronavirus COVID-19 PCR ([facility]) - Final, Complete 07/30/19 Respiratory Panel (PCR) - Final, Complete Discharge Medications Scheduled Atomoxetine HCl (Atomoxetine HCl) 40 Mg Capsule, 80 MG PO DAILY, (Reported) Cholecalciferol (Vitamin D3) (Vitamin D3) 1,000 Unit Tablet, 3,000 UNITS PO DAILY, (Reported) Cyanocobalamin (Vitamin B-12) (Vitamin B-12) 1,000 Mcg Capsule, 1,000 MCG PO DAILY, (Reported) Magnesium Gluconate (Magnesium Gluconate) 27.5 Mg Tablet, 1 TAB PO DAILY, (Reported) Omeprazole/Sodium Bicarbonate (Omeprazole-Bicarb 40-1,100 Cap) 1 Each Capsule, 1 CAP PO BID, (Reported) before meals Scheduled PRN Ondansetron (Ondansetron Odt) 4 Mg Tab.rapdis, 4 MG PO Q6-8HP PRN for NAUSEA OR VOMITING, (Reported) Allergies Coded Allergies: vancomycin (Verified Allergy, Intermediate, patchy upper body rash, 08/03/19) TAVARES HUANG MD Aug 06, 2019 12:50
--- NOTE | 2019-08-06 15:35 | ECGEPIP ---
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 Electronically Signed on 08-06-2019 15:35:30 EDT by Colt Corey
[2019-08-07 09:41] LABS: HIV 1&2 SCREEN CENTAUR NEGATIVE (NEGATIVE)
== END 2019-08-06 11:00 | disposition home or self-care (01) | DRG 392 ==
LOC: M ED 17:45 → M ED INP 19:41 → ENRESERVDT 20:26 → ENRESERVTM 20:26 → M PCU 22:29 → M ICU 08-03 18:05
PROVIDERS: ADMIT Internal Medicine; ATTEND Internal Medicine
DX: K58.8 Other irritable bowel syndrome (principal); R11.15 Cyclical vomiting syndrome unrelated to migraine; Z11.59 Encounter for screening for other viral diseases; F12.10 Cannabis abuse, uncomplicated; Z79.899 Other long term (current) drug therapy; Z88.1 Allergy status to other antibiotic agents; E83.39 Other disorders of phosphorus metabolism; K44.9 Diaphragmatic hernia without obstruction or gangrene; K21.9 Gastro-esophageal reflux disease without esophagitis; L27.0 Generalized skin eruption due to drugs and medicaments taken internally

== ENCOUNTER → 2019-08-09 | Outpatient (CLI) | payer OTHER ==
[~2019-08-09] MED LIST changes: +ATOM40CA2 PO; +B-12100010 PO; +MAGN500T8 PO; +OMEP1CAP94 PO; +VITAD1000T PO
[2019-08-09 17:07] LABS: HEMATOCRIT 36.1 % (42.0-52.0); HEMOGLOBIN 12.1 g/dl (13.5-17.5); MEAN CORPUSCULAR HEMOGLOBIN 32.1 pg (27.0-33.0); MEAN CORPUSCULAR HGB CONC 33.5 g/dl (32.0-36.5); MEAN CORPUSCULAR VOLUME 95.8 fl (80.0-96.0); PLATELET COUNT, AUTOMATED 596 10^3/uL (150-450); RED BLOOD COUNT 3.77 10^6/uL (4.30-6.10); WHITE BLOOD COUNT 20.9 10^3/uL (4.0-10.0)
[2019-08-09 17:09] LABS: BLOOD UREA NITROGEN 7 MG/DL (7-18); CALCIUM LEVEL 8.3 MG/DL (8.5-10.1); CARBON DIOXIDE LEVEL 31 MEQ/L (21-32); CHLORIDE LEVEL 100 MEQ/L (98-107); CREATININE FOR GFR 0.69 MG/DL (0.70-1.30); GLOMERULAR FILTRATION RATE > 60.0 (>60); GLUCOSE, FASTING 126 MG/DL (70-100); POTASSIUM SERUM 3.5 MEQ/L (3.5-5.1); SODIUM LEVEL 136 MEQ/L (136-145)
[2019-08-09 17:34] LABS: ERYTHROCYTE SEDIMENTATION RATE 63 mm/hr (0-15)
== END ==
LOC: M WUC 12:57
PROVIDERS: ATTEND Nurse Practitioner
DX: K52.9 Noninfective gastroenteritis and colitis, unspecified (principal)

== ENCOUNTER → 2019-08-09 | Outpatient (REF) | payer OTHER | LOC: M LAB REF 19:30 | PROVIDERS: ATTEND Nurse Practitioner | DX: K52.9 Noninfective gastroenteritis and colitis, unspecified (principal) ==

== ENCOUNTER → 2019-08-12 | Outpatient (CLI) | payer OTHER ==
[2019-08-12 16:10] LABS: BASO # 0.1 10^3/uL (0.0-0.2); BASO % 0.4 % (0.0-1.0); EOS # 0.2 10^3/uL (0.0-0.5); EOS % 1.3 % (0.0-3.0); HEMATOCRIT 39.7 % (42.0-52.0); LYMPH # 2.2 10^3/uL (1.5-5.0); MEAN CORPUSCULAR HGB CONC 32.7 g/dl (32.0-36.5); MEAN CORPUSCULAR VOLUME 94.5 fl (80.0-96.0); NEUTROPHILS # 13.4 10^3/uL (1.5-8.5); NEUTROPHILS % 78.2 % (36.0-66.0); PLATELET COUNT, AUTOMATED 723 10^3/uL (150-450); WHITE BLOOD COUNT 17.1 10^3/uL (4.0-10.0)
[2019-08-12 16:33] LABS: ALBUMIN 2.7 GM/DL (3.2-5.2); ALT/SGPT 25 U/L (12-78); BILIRUBIN,TOTAL 0.4 MG/DL (0.2-1.0); BLOOD UREA NITROGEN 10 MG/DL (7-18); CALCIUM LEVEL 8.4 MG/DL (8.5-10.1); CARBON DIOXIDE LEVEL 29 MEQ/L (21-32); CHLORIDE LEVEL 101 MEQ/L (98-107); CREATININE FOR GFR 0.65 MG/DL (0.70-1.30); GLOMERULAR FILTRATION RATE > 60.0 (>60); GLUCOSE, FASTING 92 MG/DL (70-100); NT-PRO BNP 57 PG/ML (<125); POTASSIUM SERUM 4.2 MEQ/L (3.5-5.1); SODIUM LEVEL 136 MEQ/L (136-145); TOTAL PROTEIN 7.1 GM/DL (6.4-8.2)
--- NOTE | 2019-08-13 02:28 | REP ---
Clinical: Pneumonia. Technique: PA and lateral. Comparison: 07/30/2019. Findings: Mediastinum and cardiac silhouette are normal. Significant diffuse bilateral alveolar and interstitial infiltrates have progressed since prior examination primarily involving the mid to upper lung zones. No effusion. No pneumothorax. Skeletal structures are intact. Impression: Significant diffuse bilateral infiltrates increased from prior examination. Electronically Signed by Michael Cloud MD 08/13/2019 02:19 A
== END ==
LOC: M WUC 14:57
PROVIDERS: ATTEND Internal Medicine
DX: J18.9 Pneumonia, unspecified organism (principal); F41.9 Anxiety disorder, unspecified; A09 Infectious gastroenteritis and colitis, unspecified

== ENCOUNTER → 2019-09-21 | Outpatient (CLI) | payer OTHER ==
--- NOTE | 2019-09-22 08:02 | REP ---
CHEST, TWO VIEWS: Two views of the chest are performed. COMPARISON: 08/12/2019 Previously noted bilateral infiltrates have resolved. Heart and mediastinum are within normal limits. Visualized osseous structures are intact. IMPRESSION: Previously noted bilateral infiltrates have resolved with no evidence of acute infiltrate at this time. Electronically Signed by Agusto Bernstein MD 09/22/2019 09:59 A
== END ==
LOC: M WUC 14:06
PROVIDERS: ATTEND Internal Medicine
DX: J18.9 Pneumonia, unspecified organism (principal)

== ENCOUNTER 2020-04-16 16:35 | Emergency (ER) | payer OTHER ==
[~2020-04-16] VITALS: Ht 188 cm; Wt 78.8 kg
[~2020-04-16 16:35] MED LIST changes: +D31000TA2 PO; -VITAD1000T PO
[2020-04-16] MEDS ORDERED: NS 1,000 ML IV ONE (17:45)
[2020-04-16] MEDS ORDERED: HALOPERIDOL 5MG/ML VIAL (J1630 PER 1) IV ONE (17:45)
[2020-04-16 18:09] LABS: BASO % 0.1 % (0.0-1.0); HEMATOCRIT 40.3 % (42.0-52.0); LYMPH # 0.7 10^3/uL (1.5-5.0); LYMPH % 4.3 % (24.0-44.0); MEAN CORPUSCULAR HEMOGLOBIN 31.1 pg (27.0-33.0); MEAN CORPUSCULAR HGB CONC 34.7 g/dl (32.0-36.5); MEAN CORPUSCULAR VOLUME 89.6 fl (80.0-96.0); MONO # 0.7 10^3/uL (0.0-0.8); MONO % 4.3 % (0.0-5.0); NEUTROPHILS # 14.3 10^3/uL (1.5-8.5); NEUTROPHILS % 90.9 % (36.0-66.0); PLATELET COUNT, AUTOMATED 248 10^3/uL (150-450); WHITE BLOOD COUNT 15.7 10^3/uL (4.0-10.0)
[2020-04-16 18:32] LABS: ALT/SGPT 42 U/L (12-78); BILIRUBIN,DIRECT 0.2 MG/DL (0.0-0.2); BILIRUBIN,TOTAL 0.8 MG/DL (0.2-1.0); BLOOD UREA NITROGEN 22 MG/DL (7-18); CALCIUM LEVEL 10.7 MG/DL (8.5-10.1); CARBON DIOXIDE LEVEL 20 MEQ/L (21-32); CHLORIDE LEVEL 108 MEQ/L (98-107); CREATININE FOR GFR 0.95 MG/DL (0.70-1.30); GLOMERULAR FILTRATION RATE > 60.0 (>60); GLUCOSE, FASTING 109 MG/DL (70-100); LIPASE 37 U/L (73-393); POTASSIUM SERUM 3.7 MEQ/L (3.5-5.1); SODIUM LEVEL 140 MEQ/L (136-145); TOTAL PROTEIN 8.1 GM/DL (6.4-8.2)
[2020-04-16] MEDS ORDERED: ONDANSETRON 4MG/2ML VIAL IV ONE (19:00)
[2020-04-16 20:50] VITALS: BP 138/77
== END 2020-04-16 21:07 | disposition home or self-care (01) ==
LOC: M ED 16:35
DX: R11.2 Nausea with vomiting, unspecified (principal); R19.7 Diarrhea, unspecified; D72.829 Elevated white blood cell count, unspecified; F41.9 Anxiety disorder, unspecified; F12.10 Cannabis abuse, uncomplicated; Z88.1 Allergy status to other antibiotic agents; Z79.899 Other long term (current) drug therapy
CPT/HCPCS: 80048; 80076; 83690; 85025; 96361; 96374; 96375; 99284; J1630; J2405

== ENCOUNTER 2020-04-18 09:53 | Emergency (ER) | payer OTHER ==
[~2020-04-18] VITALS: Ht 188 cm; Wt 78.3 kg
[2020-04-18] MEDS ORDERED: HALOPERIDOL 5MG/ML VIAL (J1630 PER 1) IV ONE ×2 (10:30→11:45)
[2020-04-18] MEDS ORDERED: NS 1,000 ML IV ONE (10:30)
[2020-04-18 10:48] LABS: BASO % 0.2 % (0.0-1.0); HEMATOCRIT 38.7 % (42.0-52.0); HEMOGLOBIN 13.2 g/dl (13.5-17.5); LYMPH # 1.4 10^3/uL (1.5-5.0); LYMPH % 11.8 % (24.0-44.0); MEAN CORPUSCULAR HEMOGLOBIN 30.6 pg (27.0-33.0); MEAN CORPUSCULAR HGB CONC 34.1 g/dl (32.0-36.5); MEAN CORPUSCULAR VOLUME 89.8 fl (80.0-96.0); MONO # 0.9 10^3/uL (0.0-0.8); MONO % 7.7 % (0.0-5.0); NEUTROPHILS # 9.3 10^3/uL (1.5-8.5); NEUTROPHILS % 79.7 % (36.0-66.0); PLATELET COUNT, AUTOMATED 231 10^3/uL (150-450); RED BLOOD COUNT 4.31 10^6/uL (4.30-6.10); WHITE BLOOD COUNT 11.7 10^3/uL (4.0-10.0)
[2020-04-18 11:08] LABS: BLOOD UREA NITROGEN 13 MG/DL (7-18); CALCIUM LEVEL 9.8 MG/DL (8.5-10.1); CARBON DIOXIDE LEVEL 21 MEQ/L (21-32); CHLORIDE LEVEL 101 MEQ/L (98-107); GLOMERULAR FILTRATION RATE > 60.0 (>60); GLUCOSE, FASTING 101 MG/DL (70-100); SODIUM LEVEL 134 MEQ/L (136-145)
[2020-04-18 11:35] LABS: RSV AMPLIFICATION NEGATIVE (NEGATIVE)
[2020-04-18 13:00] VITALS: BP 126/78
[2020-04-18] MEDS ORDERED: POTASSIUM CHLORIDE 10 MEQ SR TABLET PO ONE (13:15)
== END 2020-04-18 13:49 | disposition home or self-care (01) ==
LOC: M ED 09:53
DX: F12.188 Cannabis abuse with other cannabis-induced disorder (principal); Z88.1 Allergy status to other antibiotic agents
CPT/HCPCS: 80048; 85025; 87631; 96374; 96376; 99284; J1630

== ENCOUNTER → 2020-04-20 | Outpatient (CLI) | payer OTHER | LOC: M LABSMTC 13:33 | PROVIDERS: ATTEND Family Medicine | DX: Z20.828 Contact with and (suspected) exposure to other viral communicable diseases (principal) ==

== ENCOUNTER 2020-06-06 14:54 | Emergency (ER) | payer BC, OTHER ==
[~2020-06-06] VITALS: Ht 188 cm; Wt 77.0 kg
--- OUTSIDE RECORDS SUMMARY | 2020-06-06 15:01 | CCD | Continuity of Care Document ---
Author Author Hamilton MERINO M.D. Organization Unknown Address [address] [address] Phone [phone] Problems Active Problems Provider Date Attention deficit hyperactivity disorder, predominantl y inattentive type John Merino M.D. Onset: 01/15/2019 Social History Type Date Description Comments Sex Unknown ETOH Use Occasionally consumes liquor Tobacco Use Start: Unknown End: Unknown Patient is a former smoker Recreational Drug Use Former Drug User Pot - Rec ently Quit Allergies, Adverse Reactions, Alerts Description No Known Drug Allergies Medications Active Medications SIG Qnty Indications Ordering Provide r Date Zoloft 100mg Tablets 1 by mouth every day 90tabs John Merino M.D. 03/27/2020 Ventolin HFA 108(90Base) mcg/Act A erosol ii puffs every 4-6 hours as needed 1units Edita Merino M.D. 08/12/2019 Atomoxetine HCL 40mg Capsules 1 by mouth every day 180caps John Merino M.D. 01/16/20 19 Dicyclomine HCL 20mg Tablets take one tablet by mouth as needed four times a day one-half hour prior to meal prn Unknown Metoclopramide HCL 5mg Tablets 1 by mouth 30minutes prior to each meal and bed time prn Un known Omeprazole-Sodium Bicarbonate 40-1100mg Capsules 1 by mouth three times daily Unknown History Medications Zoloft 50mg Tablets 1 by mouth every day 30tabs John Merino M.D. 02/25/2020 - 07/2019 Immunizations CPT Code Status Date Vaccine Lot # [id number] Given 04/27/2017 Influenza Virus Vaccine, Quadrivalent, Slit Virus, Im Use 3Y & Up [id number] Refused 01/15/2019 Influenza Virus Vaccine, Quadrivalent, Slit Virus, Im Use 3Y & Up [id number] Vital Signs Date Vital Result Comment 03/27/2020 11:44am BP Systolic 122 mmHg BP Diastolic 72 mmHg Body Temperature 99.1 F Heart Rate 90 /min Respiratory Rate 16 /min Height 74 inches 6'2" Weight 182.00 lb [place] Body Weight 190 lb BMI (Body Mass Index) 23.4 kg/m2 O2 % BldC Oximetry 99 % 02/25/2020 1:03pm BP Systolic 122 mmHg BP Diastolic 76 mmHg Body Temperature 99.6 F Heart Rate 78 /min Respiratory Rate 16 /min Height 74 inches 6'2" Weight 191.00 lb [place] Body Weight 190 lb BMI (Body Mass Index) 24.5 kg/m2 O2 % BldC Oximetry 98 % Results Test Acquired Date Facility Test Result H/L Range Note Coronavirus 2019 Nasopharygeal 04/20/2020 [facility] ([facility]) [phone] Coronavirus 2019 Nasopharygeal This nucleic aci <SEE N OTE> 1 1 This nucleic acid amplificat ion test was developed and its performance characteristics determined by [employer]. Nucleic acid amplification tests include PCR and TMA. This test has not been FDA cleared or approved. This test has been authorized by FDA under an Emergency Use Authorization (EUA). This test is only authorized for the duration of time the declaration that circumstances exist justifying the authorization of the emergency use of in vitro diagnostic tests for detection of SARS-CoV-2 virus and/or diagnosis of COVID-19 infection under section 564(b)(1) of the Act, 21 U.S.C. 360bbb-3 (b) (1), unless the authorization is terminated or revoked sooner. When diagnostic testing is negative, the possibility of a false negative result should be considered in the context of a patient's recent exposures and the presence of clinical signs and symptoms consistent with COVID-19. An individual without symptoms of COVID-19 and who is not shedding SARS-CoV-2 virus would expect to have a negative (not detected) result in this assay. Performed at: [facility] [address] [facility], [place] [id number] Host[place] Helper: Damaris Bernabe PhD, Phone: [phone] Not Detected Procedures Description No Information Available Medical Devices Description No Information Available Encounters Type Date Location Provider Dx Diagnosis Office Visit 03/27/2020 11:30a [facility] John Merino M. D. F41.9 Anxiety disorder, unspecified Office Visit 02/25/2020 11:30a [facility] John Merino M. D. F41.9 Anxiety disorder, unspecified Assessments Date Code Description Provider 04/20/2020 R50.9 Fever, unspecified Shalonda Naheed M, [facility] 04/20/2020 R05 Cough Shalonda Naheed M, [facility] 04/20/2020 R06.02 Shortness of breath Shalonda Naheed M, [facility] 04/20/2020 R11.2 Nausea with vomiting, unspecifie d Shalonda Naheed M, [facility] 04/20/2020 R19.7 Diarrhea, unspecified [facility]2020 F41.9 Anxiety disorder, unspecified Mi John lowery M.D. 02/25/2020 F41.9 Anxiety disorder, unspecified Mi John lowery M.D. Plan of Treatment Future Appointment(s):* 07/01/2020 1:00 pm - John Merino M.D. at [facility] Functional Status Description No Information Available Mental Status Description No Information Available Referrals Description No Information Available
--- OUTSIDE RECORDS SUMMARY | 2020-06-06 15:03 | CCD ---
Author Author [facility] Organization [facility] Address Unknown Phone Unavailable Care Team Providers Care Machine Pecan Picker Name Role Phone Dhiraj, Odette DO Unavailable Unavailable Dhiraj, Odette DO Unavailable Unavailable Dhiraj, Odette DO Unavailable Unavailable Dhiraj, Odette DO Unavailable Unavailable Dhiraj, Odette DO Unavailable Unavailable Dhiraj, Odette DO Unavailable Unavailable Dhiraj, Odette DO Unavailable Unavailable Dhiraj, Odetet DO Unavailable Unavailable Dhiraj, Odette DO Unavailable Unavailable Dhiraj, Odette DO Unavailable Unavailable Dhiraj, Odette DO Unavailable Unavailable Dhiraj, Odette DO Unavailable Unavailable Dhiraj, Odette DO Unavailable Unavailable Dhiraj, Odette DO Unavailable Unavailable Dhiraj, Odette DO Unavailable Unavailable Dhiraj, Odette DO Unavailable Unavailable Dhiraj, Odette DO Unavailable Unavailable Dhiraj, Odette DO Unavailable Unavailable Dhiraj, Odette DO Unavailable Unavailable Dhiraj, Odette DO Unavailable Unavailable Dhiraj, Odette DO Unavailable Unavailable Dhiraj, Odette DO Unavailable Unavailable Dhiraj, Odette DO Unavailable Unavailable Dhiraj, Odette DO Unavailable Unavailable Dhiraj, Odette DO Unavailable Unavailable Dhiraj, Odette DO Unavailable Unavailable Dhiraj, Odette DO Unavailable Unavailable Dhiraj, Odette DO Unavailable Unavailable Dhiraj, Odette DO Unavailable Unavailable Dhiraj, Odette DO Unavailable Unavailable Dhiraj, Odette DO Unavailable Unavailable Dhiraj, Odette DO Unavailable Unavailable Dhiraj, Odette DO Unavailable Unavailable Dhiraj, Odette DO Unavailable Unavailable Dhiraj, Odette DO Unavailable Unavailable Dhiraj, Odette DO Unavailable Unavailable Dhiraj, Odette DO Unavailable Unavailable Dhiraj, Odette DO Unavailable Unavailable Dhiraj, Odette DO Unavailable Unavailable Dhiraj, Odette DO Unavailable Unavailable Dhiraj, Odette DO Unavailable Unavailable Dhiraj, Odette DO Unavailable Unavailable Dhiraj, Odette DO Unavailable Unavailable Dhiraj, Odette DO Unavailable Unavailable Dhiraj, Odette DO Unavailable Unavailable Dhiraj, Odette DO Unavailable Unavailable Dhiraj, Odette DO Unavailable Unavailable Dhiraj, Odette DO Unavailable Unavailable Dhiraj, Odette DO Unavailable Unavailable Dihraj, Odette DO Unavailable Unavailable Dhiraj, Odette DO Unavailable Unavailable Dhiraj, Odette DO Unavailable Unavailable Dhiraj, Odette DO Unavailable Unavailable Dhiraj, Odette DO Unavailable Unavailable Dhiraj, Odette DO Unavailable Unavailable Dhiraj, Odette DO Unavailable Unavailable Dhiraj, Odette DO Unavailable Unavailable Dhiraj, Odette DO Unavailable Unavailable Dhiraj, Odette DO Unavailable Unavailable Dhiraj, Odette DO Unavailable Unavailable Dhiraj, Odette DO Unavailable Unavailable Dhiraj, Odette DO Unavailable Unavailable Dhiraj, Odette DO Unavailable Unavailable Dhiraj, Odette DO Unavailable Unavailable Dhiraj, Odette DO Unavailable Unavailable Dhiraj, Odette DO Unavailable Unavailable Dhiraj, Odette DO Unavailable Unavailable Dhiraj, Odette DO Unavailable Unavailable Dhiraj, Odette DO Unavailable Unavailable Dhiraj, Odette DO Unavailable Unavailable Dhiraj, Odette DO Unavailable Unavailable Dhiraj, Odette DO Unavailable Unavailable Sarah CARLOS MD Unavailable Unavailable Sarah CARLOS MD Unavailable Unavailable Sarah CARLOS MD Unavailable Unavailable Sarah CARLOS MD Unavailable Unavailable Sarah CARLOS MD Unavailable Unavailable Sarah CARLOS MD Unavailable Unavailable Sarah CARLOS MD Unavailable Unavailable Sarah CARLOS MD Unavailable Unavailable Sarah CARLOS MD Unavailable Unavailable Sarah CARLOS MD Unavailable Unavailable Sarah CARLOS MD Unavailable Unavailable Sarah CARLOS MD Unavailable Unavailable Sarah CARLOS MD Unavailable Unavailable Sarah CARLOS MD Unavailable Unavailable Sarah CARLOS MD Unavailable Unavailable Sarah CARLOS MD Unavailable Unavailable Sarah CARLOS MD Unavailable Unavailable Sarah CARLOS MD Unavailable Unavailable Sarah CARLOS MD Unavailable Unavailable Sarah CARLOS MD Unavailable Unavailable Sarah CARLOS MD Unavailable Unavailable Sarah CARLOS MD Unavailable Unavailable Sarah CARLOS MD Unavailable Unavailable Sarah CARLOS MD Unavailable Unavailable Sarah CARLOS MD Unavailable Unavailable Sarah CARLOS MD Unavailable Unavailable Sarah CARLOS MD Unavailable Unavailable aSrah CARLOS MD Unavailable Unavailable Sarah CARLOS MD Unavailable Unavailable Sarah CARLOS MD Unavailable Unavailable TERRANCE H MARK MARIN Unavailable Unavailable TERRANCE H MARK MARIN Unavailable Unavailable Sarah CARLOS MD Unavailable Unavailable TERRANCE H MARK MARIN Unavailable Unavailable Sarah CARLOS MD Unavailable Unavailable Sarah CARLOS MD Unavailable Unavailable Sarah CARLOS MD Unavailable Unavailable Sarah CARLOS MD Unavailable Unavailable Sarah CARLOS MD Unavailable Unavailable Sarah CARLOS MD Unavailable Unavailable Sarah CARLOS MD Unavailable Unavailable Sarah CARLOS MD Unavailable Unavailable Sarah CARLOS MD Unavailable Unavailable Sarah CARLOS MD Unavailable Unavailable Sarah CARLOS MD Unavailable Unavailable Sarah CARLOS MD Unavailable Unavailable Sarah CARLOS MD Unavailable Unavailable Sarah CARLOS MD Unavailable Unavailable Sarah CARLOS MD Unavailable Unavailable Sarah CARLOS MD Unavailable Unavailable Sarah CARLOS MD Unavailable Unavailable Sarah CARLOS MD Unavailable Unavailable Sarah CARLOS MD Unavailable Unavailable Sarah CARLOS MD Unavailable Unavailable Sarah CARLOS MD Unavailable Unavailable Sarah CARLOS MD Unavailable Unavailable Sarah CARLOS MD Unavailable Unavailable Sarah CARLOS MD Unavailable Unavailable Sarah CARLOS MD Unavailable Unavailable Sarah CARLOS MD Unavailable Unavailable Sarah CARLOS MD Unavailable Unavailable Sarah CARLOS MD Unavailable Unavailable Sarah CARLOS MD Unavailable Unavailable Sarah CARLOS MD Unavailable Unavailable Sarah CARLOS MD Unavailable Unavailable Sarah CARLOS MD Unavailable Unavailable Sarah CARLOS MD Unavailable Unavailable Sarah CARLOS MD Unavailable Unavailable Sarah CARLOS MD Unavailable Unavailable Sarah CARLOS MD Unavailable Unavailable Sarah CARLOS MD Unavailable Unavailable Sarah CARLOS MD Unavailable Unavailable Sarah CARLOS MD Unavailable Unavailable Sarah CARLOS MD Unavailable Unavailable Sarah CARLOS MD Unavailable Unavailable Sarah CARLOS MD Unavailable Unavailable Sarah CARLOS MD Unavailable Unavailable Sarah CARLOS MD Unavailable Unavailable Sarah CARLOS MD Unavailable Unavailable Sarah CARLOS MD Unavailable Unavailable Sarah CARLOS MD Unavailable Unavailable Sarah CARLOS MD Unavailable Unavailable Sarah CARLOS MD Unavailable Unavailable Sarah CARLOS MD Unavailable Unavailable Sarah CARLOS MD Unavailable Unavailable Sarah CARLOS MD Unavailable Unavailable Sarah CARLOS MD Unavailable Unavailable Sarah CARLOS MD Unavailable Unavailable Sarah CARLOS MD Unavailable Unavailable Sarah CARLOS MD Unavailable Unavailable Sarah CARLOS MD Unavailable Unavailable Sarah CARLOS MD Unavailable Unavailable Sarah CARLOS MD Unavailable Unavailable TERRANCE H MARK MARIN Unavailable Unavailable TERRANCE H MARK MARIN Unavailable Unavailable TERRANCE H MARK MARIN Unavailable Unavailable Sarah CARLOS MD Unavailable Unavailable Sarah CARLOS MD Unavailable Unavailable TERRANCE H MARK MARIN Unavailable Unavailable TERRANCE H MARK MARIN Unavailable Unavailable TERRANCE H MARK MARIN Unavailable Unavailable TERRANCE H MARK MARIN Unavailable Unavailable TERRANCE H MARK MARIN Unavailable Unavailable TERRANCE H MARK MARIN Unavailable Unavailable TERRANCE, H MARK MARIN Unavailable Unavailable TERRANCE H MARK MARIN Unavailable Unavailable TERRANCESarah MD Unavailable Unavailable TERRANCE H MARK MARIN Unavailable Unavailable TERRANCE H MARK MARIN Unavailable Unavailable TERRANCE H MARK MARIN Unavailable Unavailable TERRANCE H MARK MARIN Unavailable Unavailable TERRANCE, H MARK MARIN Unavailable Unavailable TERRANCE, Sarah FLORES MD Unavailable Unavailable Sarah CARLOS MD Unavailable Unavailable Sarah CARLOS MD Unavailable Unavailable Sarah CARLOS MD Unavailable Unavailable Sarah CARLOS MD Unavailable Unavailable Sarah CARLOS MD Unavailable Unavailable Sarah CARLOS MD Unavailable Unavailable Sarah CARLOS MD Unavailable Unavailable Sarah CARLOS MD Unavailable Unavailable Sarah CARLOS MD Unavailable Unavailable Sarah CARLOS MD Unavailable Unavailable Sarah CARLOS MD Unavailable Unavailable Sarah CARLOS MD Unavailable Unavailable Sarah CARLOS MD Unavailable Unavailable Sarah CARLOS MD Unavailable Unavailable Sarah CARLOS MD Unavailable Unavailable Sarah CARLOS MD Unavailable Unavailable Sarah CARLOS MD Unavailable Unavailable Sarah CARLOS MD Unavailable Unavailable Sarah CARLOS MD Unavailable Unavailable Sarah CARLOS MD Unavailable Unavailable Sarah CARLOS MD Unavailable Unavailable Sarah CARLOS MD Unavailable Unavailable Sarah CARLOS MD Unavailable Unavailable Sarah CARLOS MD Unavailable Unavailable Sarah CARLOS MD Unavailable Unavailable Sarah CARLOS MD Unavailable Unavailable Sarah CARLOS MD Unavailable Unavailable Sarah CARLOS MD Unavailable Unavailable Sarah CARLOS MD Unavailable Unavailable Sarah CARLOS MD Unavailable Unavailable Sarah CARLOS MD Unavailable Unavailable Sarah CARLOS MD Unavailable Unavailable Sarah CARLOS MD Unavailable Unavailable Sarah CARLOS MD Unavailable Unavailable Sarah CARLOS MD Unavailable Unavailable Sarah CARLOS MD Unavailable Unavailable Sarah CARLOS MD Unavailable Unavailable Sarah CARLOS MD Unavailable Unavailable Sarah CARLOS MD Unavailable Unavailable Rotello, J Chuy PA Unavailable Unavailable Rotello, J Chuy PA Unavailable Unavailable Rotello, J Chuy PA Unavailable Unavailable Rotello, J Chuy PA Unavailable Unavailable Rotello, J Chuy PA Unavailable Unavailable Rotello, J Chuy PA Unavailable Unavailable Rotello, J Chuy PA Unavailable Unavailable Rotello, J Chuy PA Unavailable Unavailable Rotello, J Chuy PA Unavailable Unavailable Rotello, J Chuy PA Unavailable Unavailable Rotello, J Chuy PA Unavailable Unavailable Rotello, J Chuy PA Unavailable Unavailable Rotello, J Chuy PA Unavailable Unavailable CARLITO (TERRANCE), Mague STOKES MD Unavailable Unavailab le CARLITO (TERRANCE), Mague STOKES MD Unavailable Unavailab le CARLITO (TERRANCE), Mague STOKES MD Unavailable Unavailab le CARLITO (TERRANCE), Mague TSOKES MD Unavailable Unavailab le CARLITO (TERRANCE), Mague STOKES MD Unavailable Unavailab le CARLITO (TERRANCE), Mague STOKES MD Unavailable Unavailab le CARLITO (TERRANCE), Mague STOKES MD Unavailable Unavailab le CARLITO (TERRANCE), Mague STOKES MD Unavailable Unavailab le CARLITO (TERRANCE), Mague STOKES MD Unavailable Unavailab le CARLITO (TERRANCE), Mague STOKES MD Unavailable Unavailab le CARLITO (TERRANCE), Mauge STOKES MD Unavailable Unavailab le CARLITO (TERRANCE), Mague STOKES MD Unavailable Unavailab le CARLITO (TERRANCE), Mague STOKES MD Unavailable Unavailab le CARLITO (TERRANCE), Mague STOKES MD Unavailable Unavailab le CARLITO (TERRANCE), Mague STOKES MD Unavailable Unavailab le CARLITO (TERRANCE), Mague STOKES MD Unavailable Unavailab le CARLITO (TERRANCE), Mague STOKES MD Unavailable Unavailab le CARLITO (TERRANCE), Mague STOKES MD Unavailable Unavailab le CARLITO (TERRANCE), Mague STOKES MD Unavailable Unavailab le CARLITO (TERRANCE), Mague STOKES MD Unavailable Unavailab le CARLITO (TERRANCE), Mague STOKES MD Unavailable Unavailab le CARLITO (TERRANCE), Mague STOKES MD Unavailable Unavailab le CARLITO (TERRANCE), Mague STOKES MD Unavailable Unavailab le CARLITO (TERRANCE), Mague STOKES MD Unavailable Unavailab le CARLITO (TERRANCE), Mague STOKES MD Unavailable Unavailab le CARLITO (TERRANCE), Mague STOKES MD Unavailable Unavailab le CARLITO (TERRANCE), Mague STOKES MD Unavailable Unavailab le CARLITO (TERRANCE), Mague STOKES MD Unavailable Unavailab le CARLITO (TERRANCE), Mague STOKES MD Unavailable Unavailab le CARLITO (TERRANCE), Mague STOKES MD Unavailable Unavailab le CARLITO (TERRANCE), Mague STOKES MD Unavailable Unavailab le CARLITO (TERRANCE), Mague STOKES MD Unavailable Unavailab le CARLITO (TERRANCE), Mague STOKES MD Unavailable Unavailab le CARLITO (TERRANCE), Mague STOKES MD Unavailable Unavailab le CARLITO (TERRANCE), Mague STOKES MD Unavailable Unavailab le CARLITO (TERRANCE), Mague STOKES MD Unavailable Unavailab le CARLITO (TERRANCE), Mague STOKES MD Unavailable Unavailab le CARLITO (TERRANCE), Mague STOKES MD Unavailable Unavailab le CARLITO (TERRANCE), Mague STOKES MD Unavailable Unavailab le CARLITO (TERRANCE), Mague STOKES MD Unavailable Unavailab le CARLITO (TERRANCE), Mague STOKES MD Unavailable Unavailab le CARLITO (TERRANCE), Mague STOKES MD Unavailable Unavailab le CARLITO (TERRANCE), Mague STOKES MD Unavailable Unavailab le CARLITO (TERRANCE), Mague STOKES MD Unavailable Unavailab le CARLITO (TERRANCE), Mague STOKES MD Unavailable Unavailab le CARLITO (TERRANCE), Mague STOKES MD Unavailable Unavailab le CARLITO (TERRANCE), Mague STOKES MD Unavailable Unavailab le CARLITO (TERRANCE), Mague STOKES MD Unavailable Unavailab le CARLITO (TERRANCE), Mague STOKES MD Unavailable Unavailab le CARLITO (TERRANCE), Mague STOKES MD Unavailable Unavailab le CARLITO (TERRANCE), Mague STOKES MD Unavailable Unavailab le CARLITO (TERRANCE), Mague STOKES MD Unavailable Unavailab le CARLITO (TERRANCE), Mague STOKES MD Unavailable Unavailab le CARLITO (TERRANCE), Mague STOKES MD Unavailable Unavailab le CARLITO (TERRANCE), Mague STOKES MD Unavailable Unavailab le CARLITO (TERRANCE), Mague STOKES MD Unavailable Unavailab le CARLITO (TERRANCE), Mague STOKES MD Unavailable Unavailab le CARLITO (TERRANCE), Mague STOKES MD Unavailable Unavailab le CARLITO (TERRANCE), Mague STOKES MD Unavailable Unavailab le CARLITO (TERRANCE), Mageu STOKES MD Unavailable Unavailab le CARLITO (TERRANCE), Mague STOKES MD Unavailable Unavailab le CARLITO (TERRANCE), Mague STOKES MD Unavailable Unavailab le CARLITO (TERRANCE), Mague STOKES MD Unavailable Unavailab le CARLITO (TERRANCE), Mague STOKES MD Unavailable Unavailab le CARLITO (TERRANCE), Mague STOKES MD Unavailable Unavailab le CARLITO (TERRANCE), Mague STOKES MD Unavailable Unavailab le CARLITO (TERRANCE), Mague STOKES MD Unavailable Unavailab le CARLITO (TERRANCE), Mague STOKES MD Unavailable Unavailab le CARLITO (TERRANCE), M DIVYA MARIN Unavailable Unavailab le CARLITO (TERRANCE), M DIVYA MD Unavailable Unavailab le CARLITO (TERRANCE), M DIVYA MD Unavailable Unavailab le CARLITO (TERRANCE), M DIVYA MD Unavailable Unavailab le CARLITO (TERRANCE), M DIVYA MD Unavailable Unavailab le CARLITO (TERRANCE), M DIVYA MD Unavailable Unavailab le CARLITO (TERRANCE), M DIVYA MD Unavailable Unavailab le CARLITO (TERRANCE), M DIVYA MD Unavailable Unavailab le CARLITO (TERRANCE), M DIVYA MD Unavailable Unavailab le CARLITO (TERRANCE), M DIVYA MD Unavailable Unavailab le CARLITO (TERRANCE), M DIVYA MD Unavailable Unavailab le CARLITO (TERRANCE), M DIVYA MD Unavailable Unavailab le CARLITO (TERRANCE), M DIVYA MD Unavailable Unavailab le CARLITO (TERRANCE), M DIVYA MD Unavailable Unavailab le CARLITO (TERRANCE), M DIVYA MD Unavailable Unavailab le CARLITO (TERRANCE), M DIVYA MD Unavailable Unavailab le CARLITO (TERRANCE), M DIVYA MD Unavailable Unavailab le CARLITO (TERRANCE), M DIVYA MD Unavailable Unavailab le CARLITO (TERRANCE), M DIVYA MD Unavailable Unavailab le CARLITO (TERRANCE), M DIVYA MD Unavailable Unavailab le CARLITO (TERRANCE), M DIVYA MD Unavailable Unavailab le CARLITO (TERRANCE), M DIVYA MD Unavailable Unavailab le CARLITO (TERRANCE), M DIVYA MD Unavailable Unavailab le CARLITO (TERRANCE), M DIVYA MD Unavailable Unavailab le CARLITO (TERRANCE), M DIVYA MD Unavailable Unavailab le Re-disclosure Warning The records that you are about to access may contain information from federally-assisted alcohol or drug abuse programs. If such information is present, then the following federally mandated warning applies: This information has been disclosed to you from records protected by federal confidentiality rules (42 CFR part 2). The federal rules prohibit you from making any further disclosure of this information unless further disclosure is expressly permitted by the written consent of the person to whom it pertains or as otherwise permitted by 42 CFR part 2. A general authorization for the release of medical or other information is NOT sufficient for this purpose. The Federal rules restrict any use of the information to criminally investigate or prosecute any alcohol or drug abuse patient.The records that you are about to access may contain highly sensitive health information, the redisclosure of which is protected by Article 27-F of the [facility] Public Health law. If you continue you may have access to information: Regarding HIV / AIDS; Provided by facilities licensed or operated by the [facility] Office of Mental Health; or Provided by the [facility] Office for People With Developmental Disabilities. If such information is present, then the following [facility] mandated warning applies: This information has been disclosed to you from confidential records which are protected by state law. State law prohibits you from making any further disclosure of this information without the specific written consent of the person to whom it pertains, or as otherwise permitted by law. Any unauthorized further disclosure in violation of state law may result in a fine or alf sentence or both. A general authorization for the release of medical or other information is NOT sufficient authorization for further disc losure. Allergies and Adverse Reactions Type Description Substance Reaction Status Data Source(s ) Vancomycin HCl Vancomycin HCl Vancomycin 50 MG/ML Oral Solution Rash Active eCW1 (Replaced By [facility]) Family History Family Member Name Family Member Gender Family Member Status Date o f Status Description Data Source(s) Unknown Male Problem [facility]) Encounters Encounter Providers Location Date Indications Data Source(s ) Attender: DIVYA ESTEBAN ([place]) MDReferrer: Brayan CARLOS MD 05/21/2020 08:21:01 PM EST [facility] Attender: DIVYA ESTEBAN ([place]) MDReferrer: Brayan CARLOS MD 05/21/2020 08:21:01 PM EST [facility] Outpatient Attender: MARK CARLOS MD [place] [facility] 07/2019 10:30:00 AM EST [facility] ([facility] Outpatient Attender: MARK [place] [facility] 06/2019 10:30:00 AM EST [facility] ([facility] Attender: DIVYA ESTEBAN ([place]) MDReferrer: Brayan CARLOS MD 11/27/2019 08:20:08 PM EDT [facility] Attender: DIVYA ESTEBAN ([place]) MDReferrer: Brayan CARLOS MD 11/27/2019 08:20:08 PM EDT [facility] Attender: DIVYA VELÁZQUEZ) MDReferrer: Brayan CARLOS MD 11/27/2019 08:20:08 PM EDT [facility] Outpatient Referrer: Chuy SWAIN 10/03/2019 06:03:0 0 AM EDT [facility] Outpatient Attender: MARK CARLOS MD [place] [facility] 06/2019 11:30:00 AM EDT [facility] ([facility] Outpatient Attender: MARK CARLOS MD [place] [facility] 11:00:00 AM EDT [facility] ([facility] [address] [address] 08/20/2019 12:00:00 AM EDT [facility] [address] [address] 08/20/2019 12:00:00 AM EDT [facility] Outpatient Referrer: Chuy SWAIN 08/13/2019 05:34:0 0 AM EDT [facility] Outpatient Attender: MARK CARLOS MD [place] [facility] 02:30:00 PM EDT [facility] ([facility] Attender: DIVYA VELÁZQUEZ) MDReferrer: Brayan CARLOS MD 08/08/2019 08:20:04 PM EDT [facility] Attender: DIVYA VELÁZQUEZ) MDReferrer: Brayan CARLOS MD 08/08/2019 08:20:04 PM EDT [facility] Attender: DIVYA VELÁZQUEZ) MDReferrer: Brayan CARLOS MD 08/08/2019 08:20:04 PM EDT [facility] Attender: DIVYA ESTEBAN ([place]) MDReferrer: Brayan CARLOS MD 06/19/2019 08:20:02 PM EST [facility] Attender: DIVYA VELÁZQUEZ) MDReferrer: Brayan CARLOS MD 06/18/2019 08:20:02 PM EST [facility] Attender: DIVYA VELÁZQUEZ) MDReferrer: Taylor Hearn DO 06/18/2019 08:20:02 PM EST [facility] Medications Medication Brand Name Start Date Product Form Dose Route Admi nistrative Instructions Pharmacy Instructions Status Indications Reaction Description Data Source(s) 4 mg 05/22/2020 12:00:00 AM EST tablet,disintegrating 6 0 DISSOLVE ONE TABLET ON TONGUE THREE TIMES A DAY NEEDED DISSOLVE ONE TABLET ON TONGUE THREE TIME S A DAY NEEDED SOLD: 05/23/2020 [facility] 50 mg 05/22/2020 12:00:00 AM EST tablet 30 TAKE ONE TABLET BY MOUTH TWICE A DAY NEEDED FOR ANXIETY TAKE ONE TABLET BY MOUTH TWICE A DAY NEEDED FOR ANXIETY SOLD: 05/23/2020 [facility] 4 mg 04/16/2020 12:00:00 AM EST tablet,disintegrating 9 DISSOLVE ONE TABLET ON TONGUE THREE TIMES A DAY NEEDED DISSOLVE ONE TABLET ON TONGUE THREE TIME S A DAY NEEDED SOLD: 04/16/2020 [facility] Sertraline 100 MG Oral Tablet [Zoloft] Zoloft 03/27/2020 12:00:00 AM EST ORAL active [facility] ( [facility] 100 mg 03/27/2020 12:00:00 AM EST tablet 90 TAKE ONE TABLET BY MOUTH EVERY DAY TAKE ONE TABLET BY MOUTH EVERY DAY SOLD: 03/28/2020 [facility] Sertraline 50 MG Oral Tablet [Zoloft] Zoloft 02/25/2020 12:00:00 AM EST ORAL completed [facility] ( [facility] 50 mg 02/25/2020 12:00:00 AM EST tablet 30 TAKE ONE TABLET BY MOUTH EVERY DAY TAKE ONE TABLET BY MOUTH EVERY DAY SOLD: 02/26/2020 [facility] UNIT 01/19/2020 12:00:00 AM EDT Injectable 1 DIRECTED DIRECTED SOLD: 01/19/2020 [facility] 60 mcg (15 mcg x 4)/0.5 mL 01/19/2020 12:00:00 AM EDT syring e 0 INJECT DIRECTED INJECT DIRECTED SOLD: 01/19/2020 [facility] 40 mg 10/10/2019 12:00:00 AM EDT capsule 180 TAKE TWO CAPSULES BY MOUTH EVERY DAY TAKE TWO CAPSULES BY MOUTH EVERY DAY SOLD: 01/26/2020 [facility] 40 mg 10/10/2019 12:00:00 AM EDT capsule 180 TAKE TWO CAPSULES BY MOUTH EVERY DAY TAKE TWO CAPSULES BY MOUTH EVERY DAY SOLD: 10/11/2019 [facility] 236-22.74-6.74 -5.86 gram 09/20/2019 12:00:00 AM EDT recon s oln 4000 DIRECTED DIRECTED SOLD: 09/21/2019 [facility] 40-1.1 mg-gram 09/20/2019 12:00:00 AM EDT capsule 60 TAKE ONE CAPSULE BY MOUTH TWICE A DAY BEFORE MEALS TAKE ONE CAPSULE BY MOUTH TWICE A DAY BE FORE MEALS SOLD: 05/22/2020 [facility] 40-1.1 mg-gram 09/20/2019 12:00:00 AM EDT capsule 60 TAKE ONE CAPSULE BY MOUTH TWICE A DAY BEFORE MEALS TAKE ONE CAPSULE BY MOUTH TWICE A DAY BE FORE MEALS SOLD: 09/21/2019 [facility] 40-1.1 mg-gram 09/20/2019 12:00:00 AM EDT capsule 60 TAKE ONE CAPSULE BY MOUTH TWICE A DAY BEFORE MEALS TAKE ONE CAPSULE BY MOUTH TWICE A DAY BE FORE MEALS SOLD: 12/13/2019 [facility] 40-1.1 mg-gram 09/20/2019 12:00:00 AM EDT capsule 60 TAKE ONE CAPSULE BY MOUTH TWICE A DAY BEFORE MEALS TAKE ONE CAPSULE BY MOUTH TWICE A DAY BE FORE MEALS SOLD: 11/07/2019 [facility] 40-1.1 mg-gram 09/20/2019 12:00:00 AM EDT capsule 60 TAKE ONE CAPSULE BY MOUTH TWICE A DAY BEFORE MEALS TAKE ONE CAPSULE BY MOUTH TWICE A DAY BE FORE MEALS SOLD: 03/10/2020 [facility] 40-1.1 mg-gram 09/20/2019 12:00:00 AM EDT capsule 60 TAKE ONE CAPSULE BY MOUTH TWICE A DAY BEFORE MEALS TAKE ONE CAPSULE BY MOUTH TWICE A DAY BE FORE MEALS SOLD: 04/08/2020 [facility] 40-1.1 mg-gram 09/20/2019 12:00:00 AM EDT capsule 60 TAKE ONE CAPSULE BY MOUTH TWICE A DAY BEFORE MEALS TAKE ONE CAPSULE BY MOUTH TWICE A DAY BE FORE MEALS SOLD: 01/29/2020 [facility] 40 mg 08/24/2019 12:00:00 AM EDT capsule,delayed release (DR/EC) 30 TAKE ONE CAPSULE BY MOUTH EVERY DAY TAKE ONE CAPSULE BY MOUTH EVERY DAY SOLD: 08/31/2019 [facility] doxycycline hyclate 100 MG Oral Capsule [Vibramycin] Vibramy pancho 08/12/2019 12:00:00 AM EDT ORAL completed [facility] ([facility] 200 ACTUAT Albuterol 0.09 MG/ACTUAT Metered Dose Inhal er [Ventolin] Ventolin HFA 08/12/2019 12:00:00 AM EDT RESPIRATORY active [facility] ([facility] 90 mcg/actuation 08/12/2019 12:00:00 AM EDT HFA aerosol inha ler 18 INHALE TWO PUFFS BY MOUTH EVERY 4 TO 6 HOURS NEEDED INHALE TWO PUFFS BY MOUTH EVERY 4 TO 6 HOURS NEEDED SOLD: 08/12/2019 [facility] 100 mg 08/12/2019 12:00:00 AM EDT capsule 20 TAKE ONE CAPSULE BY MOUTH TWICE A DAY TAKE ONE CAPSULE BY MOUTH TWICE A DAY SOLD: 08/12/2019 [facility] Amitriptyline Hydrochloride 25 MG Oral Tablet AMITRIPTYLINE HCL 08/12/2019 12:00:00 AM EDT tablet 30 TAKE ONE TABLET BY MOUTH AT BEDTIME TAKE ONE TABLET BY MOUTH AT BEDTIME SOLD: 08/12/2019 [facility] Amitriptyline Hydrochloride 25 MG Oral Tablet Amitriptyline HCL 08/12/2019 12:00:00 AM EDT ORAL completed [facility] ([facility] 20 mg 08/08/2019 12:00:00 AM EDT tablet 120 TAKE ONE TABLET BY MOUTH FOUR TIMES A DAY NEEDED FOR CRAMPING TAKE ONE TABLET BY MOUTH FOUR TIMES A DA Y NEEDED FOR CRAMPING SOLD: 08/09/2019 [facility] 4 mg 07/30/2019 12:00:00 AM EDT tablet,disintegrating 8 TAKE 1 TABLET BY MOUTH EVERY 6-8 HOURS NEEDED FOR NAUSEA AND VOMITING TAKE 1 TABLET BY MOUTH EVERY 6-8 HOURS NEEDED FOR NAUSEA AND VOMITING SOLD: 07/30/2019 [facility] 10 mg 07/30/2019 12:00:00 AM EDT tablet 20 TAKE ONE TABLET BY MOUTH EVERY 6 HOURS NEEDED FOR PAIN MAXIMUM DAILY DOSE = 4 TABLETS TAKE ONE TABLET BY MOUTH EVERY 6 HOURS NEEDED FOR PAIN MAXIMUM DAILY DOSE = 4 TABLETS SOLD: 07/30/2019 [facility] 0.05 % 07/05/2019 12:00:00 AM EDT cream 15 APPLY TO FACE SPARINGLY TWO TIMES A DAY FOR 3 DAYS NEEDED FOR SCALING APPLY TO FACE SPARINGLY TWO TIMES A DAY FOR 3 DAYS NEEDED FOR SCALING SOLD: 07/07/2019 [facility] 2 % 06/05/2019 12:00:00 AM EST ointment 22 APPLY TO AFFECTED AREA(S) ON TOE SPARINGLY TWO TIMES A DAY APPLY TO AFFECTED AREA(S) ON TOE SPARING LY TWO TIMES A DAY SOLD: 06/07/2019 [facility] 40 mg 03/20/2019 12:00:00 AM EST capsule 180 TAKE TWO CAPSULES BY MOUTH EVERY DAY TAKE TWO CAPSULES BY MOUTH EVERY DAY SOLD: 06/17/2019 [facility] 40-1.1 mg-gram 03/11/2019 12:00:00 AM EST capsule 60 TAKE ONE CAPSULE BY MOUTH TWICE A DAY BEFORE MEALS TAKE ONE CAPSULE BY MOUTH TWICE A DAY BE FORE MEALS SOLD: 06/01/2019 [facility] 40-1.1 mg-gram 03/11/2019 12:00:00 AM EST capsule 60 TAKE ONE CAPSULE BY MOUTH TWICE A DAY BEFORE MEALS TAKE ONE CAPSULE BY MOUTH TWICE A DAY BE FORE MEALS SOLD: 08/20/2019 [facility] Omeprazole 40 MG / Sodium Bicarbonate 1100 MG Oral Cap bella 40-1.1 mg-gram OMEPRAZOLE/SODIUM BICARBONATE 03/11/2019 12:00:00 AM EST capsule 60 TAKE ONE CAPSULE BY MOUTH TWICE A DAY BEFORE MEALS TAKE ONE CAPSULE BY MOUTH TWICE A DAY BEFORE MEALS SOLD: 07/08/2019 [facility] Insurance Providers Payer name Policy type / Coverage type Policy ID Covered constitution party ID Covered constitution party's relationship to newman Policy Newman Plan Information R [facility] [id number] FA2 [id number] [facility] PPO POS [id number] [facility] Care Management [id number] [facility] [id number] 3 [id number] [employer] [id number] 3 [id number] UMR [facility] CARE [id number] SP [id number] Umr Care Management [id number] UMR O [id number] S [id number] [employer] [id number] FA2 [id number] Umr/Uhc/[employer] Maintenance Organization (HMO) [id number] Family Dependent [id number] Umr[employer] (HMO) [id number] Family Dependent [id number] [employer] [id number] [employer] [id number] Family Dependent [id number] [employer] [id number] Family Dependent [id number] [employer] [id number] Family Dependent [id number] [employer] Commercial [id number] Family Dependent [id number] [employer] [id number] FA2 [id number] [employer] Commercial [id number] Family Dependent [id number] [employer] Commercial [id number] Family Dependent [id number] [employer] PPO O [id number] C [id number] [employer] Commercial Family Dependent [employer] PPO O [id number] S [id number] [employer] (pr) Commercial Family Dependent SELF PAY 2 UNAVAILABLE 1 UNAVAILA BLE Problems, Conditions, and Diagnoses Code Display Name Description Problem Type Effective Dates Data Source(s) J18.9 [id number] Pneumonia of both ariana ngs due to infectious organism, unspecified part of lung Problem 08/20/2019 12:00:00 AM EDT eCW1 ([facility]) F98.8 [id number] Attention deficit disorder, unsp ecified hyperactivity presence Problem 08/20/2019 12:00:00 AM EDT eCW1 ([facility]) K44.9 [id number] Hiatal hernia Problem 08/20/2019 12:00:00 AM EDT eCW1 (Replaced By [facility]) K21.0 [id number] Gastroesophageal reflux disease with esop hagitis Problem 08/20/2019 12:00:00 AM EDT eCW1 (Replaced By [facility]) Results ID Date Data Source [id number] 04/20/2020 02:00:00 PM EST [facility] Name Value Range Interpretation Code Description Data Ava rce(s) Supporting Document(s) SARS coronavirus 2 RNA [facility] This lab was ordered by [facility] and reported by [facility]. ID Date Data Source [id number] 04/20/2020 02:00:00 PM EST [facility] ([facility] Name Value Range Interpretation Code Description Data Ava rce(s) Supporting Document(s) Laboratory test finding (navigational concept) [facility] test result [facility] This nucleic acid amplification test was developed and its performance characteristics determined by [employer]. Nucleic acid amplification tests include PCR and [...] detected) result in this assay. Performed at: [address] [facility], [place], [place] [id number] Trommel Tender: Damaris Bernabe PhD, Phone: [phone] Not Detected ID Date Data Source [id number] 04/18/2020 10:34:00 AM EST [facility] Name Value Range Interpretation Code Description Data Ava rce(s) Supporting Document(s) SARS coronavirus 2 RNA [Presence] in Res piratory specimen by AGUEDA with probe detection [facility] This lab was ordered by [facility] a nd reported by [facility]. ID Date Data Source [id number] 12/22/2019 12:00:00 AM EDT [facility] Name Value Range Interpretation Code Description Data Ava rce(s) Supporting Document(s) SARS coronavirus 2 RNA [Presence] in Res piratory specimen by AGUEDA with probe detection [facility] This lab was ordered by [facility] and reported by [employer]. ID Date Data Source [id number] 11/21/2019 09:30:00 AM EDT [facility] Name Value Range Interpretation Code Description Data Ava rce(s) Supporting Document(s) EGD-Colonoscopy [facility] CDYGUs3bLuCCTaFrPMUkDgwUVJwxMYabPKIzM0K3HHblJq8MQVnbmyDzDWRzMh0+EJGiNV1fnf2pLSWl gMy [file] collar runner+oFcic67zqbJhXgjcFdWoake0c3gBVPTZ3Krbd8HgFEyE3ogNJAxGds9YaRrWdI57JSXhhBbA1wa iaI4S1Zsf5v73LlFoXBx+XDbmfyB++paGfXqfFNHPwMDXrTiKGy2Tx0CxCJst41YdstnLL3jGFK+7AM6 f8vc0XiVNweFZfcSxzhjU1MefBStGpqIaGD17L8yMO JBPMsyzR6jAZ+cZR2Jf99lisgBcPM78pj/mmipzalyuOo+IOiZQRBcHturDB3iBaAceAWSij0RXpqBqQ 3dLrzmBEs2aOCkkF1xmokPUjv5A/6fphfgZcSd+JdpKAihFvisp8JNdzdX2/PtA7FdW74EdYrK9yK4oa uKmFm8VZWvmgi/pg9ueLUeQkvrAPlBDduQOg/aidsN Jy9Z1se0DH695HPnM8dAlKdUtMDfW3ME/Aviur4QcTIpVTkj+Gzk/E3BpHX42kkIxom7FC40hD286yMW Tc0qV7aBrKVOAqjGf/xnNPeitqS2TkYqruF1TQo2NQ06g9I1g4dEfiRwSnc9xdgsoFsf07d3mGz2sfP3 bgL35nqNQh+oxsMhKPMleR3A9wkfwsfzLX5hV5/biju [file] qd+JHfuyoVWvZkGMJT60rmixWwLcnJIySf2jvf [file] d1721DXpnLHQZwQcSsJRu+Светлана/UGRJrU9FOfv0SvYAw7ZppHMZ1IrSqzZab0AHldgFfuxz+qWYu5tWp [file] 16OsJYS4qYGuSkWA2e3H+field auto appraiser+OfWC0G5RY4vvzViI7 [file] Juan Miguel+gb07lHw8n8VqwzpSkiQHqZ6vPU8hJPo0OfgZ4luGpTx9NWPvn0E4YrXyluC1p2f4f6cx48hXgwja [file] QXeiGoduTcG96fXnH+QKMy+c1Qe4yNf21aPq/okRbFSLe+Motor Analyst+pVAmn1Pkqx4GV18wWzM30jzOIKWWOw2 [file] 2vCoSdj59dV3u/6jcv/engraver ornamental design/A4atwCseGgx3ooYEOCLeHT/GRIJEiQ5+1QhZ0xnTfiwzhv3d/Kp9RJtF8c [file] OQNVFWO7xSpFT4+WZsCI3+GAHGSf5eYSkEWW6B3+auto service station attendant [file] IWeiBEFAWHziC/Motor Analyst+6k8F5/RJN7t6TQEltPiJltIB2/7W6tKJu0C67fYmQzT14f9/wpMV2OrZ67LeHWY QZkObzLSh432/+Wo93CWb53WDQl7GcprwmzeD+1e004bXkoIKsUr0ahueorPu0woi6aGdE4o6E2NEmlC nSmvHmKpszNNzvZTomXHRLGnKlWfnJCoyFx+0Vra3i CELINE+9ll9e9fclbYwyr82LwVxn4IPv+O88wuxN/rmI1FNmyLijG4TJ6xkPKHE8ftJMpPoWkj1XzT/Tf5x juvEx7IeblF16iHJzbtOk99xxLY2LGtrTPFVNCZy9oe2a8cx/dE5PWKbq2ciNWap+9LflQL3ylK3fbQN J0q2MhVhvdXVvkYsMTdyFsjMYJpjAY38ToiJ7i4QVp XWHSGwGLB91xp+geMWgPE2ypKL0DTacyxakY8JkgPhwOo8LCYcas8/BtmXy7rJ86p62yOBvEVqA0n6Hl 6tY8X2j34M0Hcy2aL91J6ndzbBYYDs/f79hVGGr7A3qh1DOKyEl+4wIrJf+ORD4QRKWjfb17ATLiitlg Y7nmB0USq9rI6X0hKBncWiH237F5v8q0Z3In75gT31 [file] Hpb3UUh1Pr2IMPFGE3D= ID Date Data Source [id number] 09/20/2019 08:15:00 AM EDT [facility] Name Value Range Interpretation Code Description Data Ava rce(s) Supporting Document(s) Follow Up [facility] UTYALy8kCyNASvGjGEZxZopSBIfqRTxeJXMmO3R0ANlhHk8JORwifeFgPIXzIr5+KEBvPG6ema0qTDHj gMy [file] food attendant [file] director talent management/uaTeacxX35lqAK6pdIf7Ga+33/vy3E/eHgBE31k DEWQKANDV67nyp7tT1NRrs+FOApFZc5YB0CCfm50pd6lrAcldtF9+CaSv+uwHZbno4o7gN7oAoFNH8nx /b8oQ/+1/jmeJbjLMCPF1Wi7tBQ21HbKSRTItQHMLY5i3Q+K8OWDgeh2qWr9pJur5RDYxOlMksK5gmtC EP3LCdrgTdO+0TDE3W4zVMH2DH1tauV9aM7CEkWysd w/9qkJVYn0qO9bRw5yhvsuM42fYKIKzCdjsmZ96Crj0uOrAMt8ImyKTsDK/Arauz+3y2uy21w8+oNYBEjj [file] /kqKXLxLoJdR9r7sQfWWVihvqrcdZ9aSlsb82E [file] hnBqMjvS+IlPdsYwz+director talent management/bEKUDveyM+QESeMvdK4RX [file] +scow [file] cake icer/TsbQUxPbqyi9vXnYnmM5fQHZujQrIalXH8Edli [file] R+tIge5kShtXhB9+yhB38eV+24OsXvxN8BrQ+pbjkWdJ7Q/auto service station attendant+DHvS+ydISiDTCTNiAdZ8sgOz1nbn8Q [file] d8N+sHbZrNcSEQB4Ft58TQLQ+KIo/5j8/eGC6gNfqawN3NQ4DNDhET/blRrdosYZnIqEXuAv7sAbH+Silvia 2zL9mv1ia7587KvgBCAarwZ5CVkHXOtjFVoGcI9XNkL6cP5izuAzxqd4LeBns4deKY+5UsUTdOqgqSCW k4kCpx0/UaMUXJvycJfUg01uu43XlbWgnFTuic4lak MkfxoJ86o5t5L3Bmt2KRKotH7nsU+Bbnz+JVRsbiHc6oBqGphTQeOWatAAyliTOYtN57fSMlRvzQ8hCq 2YcqiXPzE795EYNVmkDJuX+xxEplJKKvCb9ZScGdVpi6xIONztXojtAqwniLq51ojRS2Nsq+fcnTV3d1 4jCqazXIAzZka5atJAJZ1vvwYk2/zIvlRYqRgfnioU VHaqE2ulnRcbxjufg7trvI3vz0GaCvqLz7QQhfay3zY2Vf3Pwm+IH0Ak8h4wQX76ypZvxubGmf66h6cr t6L6A/5eO4JIoYqz67BeqIAL6N6kG1RCoogvMj71vu1OEWqP7nGxDoOA+QIQNW9EZ+7BnFVWdsWcC09I Halwui+CB+6j9FFAuqgJUwnf4quz9+PIwqydLXZM+n AEaujWjwJTZ/BQpTDHtYlYrNqgSXySxNaYFVWRHtWl9YMZ8Jd/Toñito/OShWbi/esAf+JXYhyMc0iE3imA [file] e4FfWZF5EfEBltPPsJdL29sl5i+5kpW7gL6Sr06CpVxRcpxVJFTJJO57sq/+LGtvEZOcx8rrFUrB+casting wheel operator [file] CV+t26ubnTx71iO5xrCq2F1uFY46i3IgyQGgpFSXna84a3/Gc2+SdT2Q/Ru2PwLQSvVtIJ28fFjb+wage and salary specialist [file] AKH2FPSPWQlmQ0GhLKdLd0nvo6orRZiMcqHOG2/home furnishings sales representative+S6DnSRdbA+z4eeen/7OCRDUTllr3INbcQ1w0O [file] DyeG38JVoYeK/[place]/aGrFXJP5rJWJxWn+w5ibarT/ [file] director talent management+iSbxK/Ie3TJZwJzNmZBua5WHd19Mcbp6fV50rXktiD0rbeIY7FsrEfEuTNhUzT24nwV8sSDQDzZx9 [file] QFKXT+BqLE/V4cJDkHznZShfIO/director talent management+whcUYmVLZ8IBVZMusZ+KELi0ac/LTQS+JliZrHs443nmjGkBz6 [file] eqZgxbkeS9hF+9Dd6B+engraver ornamental design+6cuRcq6ZDT5hcAXWeoh5hQCCdJM7aHxKMGi8i3EJl35FlblVK/JanQN4nB [file] global vp creative + content marketing/h/sdP6hC0F3CnDpY5JCbpemACo8W+qqYJHAQHPT [file] 4elZTE9dSrna5tOHXQqGK22sTFLA0i97hJcTFf2jJVB4+Pu7OZq+Hu/Eeyon3PPqun6H5Af40Z1d3+Motor Analyst [file] tuGmVqmIAHHQ589qRrmvl+m8FH0NtSeGRHrTlrhc5qNOgv3/DQ5N/Екатерина+gT9coKuW3fYpGwaSn1r0Vmt XUXyhfulKmyuuNNt6guVykrPsGuKpjajomxnQkWxHD [file] 7jhuDvpneb27NQy1zIf++lH86M74sfKQnaQtiO+Adán [file] 8rAwDHMw+iHDiyoiCelDSlKQ8ALrBzXK1thh0SNnY1WUE4xVJwPr3IKJR4MKQ2PM0YQKQMW4V= ID Date Data Source [id number] 08/12/2019 03:06:00 PM EDT [facility] ([facility] Name Value Range Interpretation Code Description Data Ava rce(s) Supporting Document(s) Natriuretic peptide.B prohormone N-Terminal [Mass/volu me] in Serum or Plasma 57 pg/mL Normal (applies to non-numeric results) [facility] ([facility] C reactive protein [Mass/volume] in Serum or Plasma by High sensitivity method 2.60 mg/dL 0.00-0.30 Above high normal [facility] ID Date Data Source [id number] 08/12/2019 03:06:00 PM EDT [facility] ([facility] Name Value Range Interpretation Code Description Data Ava rce(s) Supporting Document(s) Glucose, Fasting 92 mg/dL 70-100 Normal (applies to non-numeric results) [facility] ([facility] Blood Urea Nitrogen 10 mg/dL 7-18 Normal (applies to non-nume jasmin results) [facility] Creatinine For GFR 0.65 mg/dL 0.70-1.30 Below low normal [facility] ([facility] Glomerular Filtration Rate Laboratory test result Normal (applies to non- numeric results) [facility] ([facility] ) <content>Units are mL/min/1.73 m2</content>
<content></content>
<content>Chronic Kidney Disease Staging per NKF:</content>
<content></content>
<content>Stage I & II GFR >=60 Normal to Mildly Decreased</content>
<content>Stage III GFR 30- 59 Moderately Decreased</content>
<content>Stage IV GFR 15-29 Severely Decreased</content>
<content>Stage V GFR <15 Very Little GFR Left</content>
<content>ESRD GFR <15 on LINE PULLER</content>
<content></content> Potassium Serum 4.2 meq/L 3.5-5.1 Normal (applies to non-numeric results) [facility] ([facility] Sodium Level 136 meq/L 136-145 Normal (applies to non-numeric res ults) [facility] ([facility] Chloride Level 101 meq/L 98-107 Normal (applies to non-numeric r esults) [facility] ([facility] Carbon Dioxide Level 29 meq/L 21-32 Normal (applies to non-num hyacinth results) [facility] ([facility] Anion Gap 6 meq/L 8-16 Below low normal [facility] ( [facility] Calcium Level 8.4 mg/dL 8.5-10.1 Below low normal [facility] ([facility] Ast/Sgot 17 U/L 7-37 Normal (applies to non-numeric resul ts) [facility] ([facility] Alt/SGPT 25 U/L 12-78 Normal (applies to non-numeric resul ts) [facility] ([facility] Alkaline Phosphatase 61 U/L 45-117 Normal (applies to non-num yhacinth results) [facility] ([facility] Bilirubin,Total 0.4 mg/dL 0.2-1.0 Normal (applies to non-numeric results) [facility] ([facility] Total Protein 7.1 GM/DL 6.4-8.2 Normal (applies to non-numeric re sults) [facility] ([facility] Albumin/Globulin Ratio 0.61 1.00-1.93 Below low normal [facility] ([facility] Albumin 2.7 GM/DL 3.2-5.2 Below low normal [facility] ( [facility] ID Date Data Source [id number] 08/12/2019 03:06:00 PM EDT [facility] ([facility] Name Value Range Interpretation Code Description Data Ava rce(s) Supporting Document(s) White Blood Count 17.1 10 4.0-10.0 Above high normal [facility] ([facility] Hematocrit 39.7 % 42.0-52.0 Below low normal [facility] ( [facility] Hemoglobin 13.0 g/dL 13.5-17.5 Below low normal [facility] ( [facility] Red Blood Count 4.20 10 4.30-6.10 Below low normal [facility] ([facility] Mean Corpuscular Volume 94.5 fl 80.0-96.0 Normal ( applies to non-numeric results) [facility] ([facility] ) Mean Corpuscular Hemoglobin 31.0 pg 27.0-33.0 Norm al (applies to non-numeric results) [facility] ([facility] ) Platelet Count, Automated 723 10 150-450 Above high normal [facility] ([facility] Mean Corpuscular HGB Conc 32.7 g/dL 32.0-36.5 Normal (applies to non-numeric results) [facility] ([facility] ) Red Cell Distribution Width 12.4 % 11.5-14.5 Norm al (applies to non-numeric results) [facility] ([facility] Lymph % 13.0 % 24.0-44.0 Below low normal [facility] ( [facility] Neutrophils % 78.2 % 36.0-66.0 Above high normal [facility] ([facility] Bosque % 6.0 % 0.0-5.0 Above high normal [facility] ([facility] Eos % 1.3 % 0.0-3.0 Normal (applies to non-numeric resul ts) [facility] ([facility] Baso % 0.4 % 0.0-1.0 Normal (applies to non-numeric resul ts) [facility] ([facility] Immature Granulocyte % 1.1 % 0-3.0 Normal (applies to non-n umeric results) [facility] ([facility] Nucleated Red Blood Cell % 0.0 % 0-0 Normal (applies to n on-numeric results) [facility] ([facility] Neutrophils # 13.4 10 1.5-8.5 Above high normal [facility] ([facility] Eos # 0.2 10 0.0-0.5 Normal (applies to non-numeric resul ts) [facility] ([facility] Lymph # 2.2 10 1.5-5.0 Normal (applies to non-numeric resul ts) [facility] ([facility] Bosque # 1.0 10 0.0-0.8 Above high normal [facility] ([facility] Baso # 0.1 10 0.0-0.2 Normal (applies to non-numeric resul ts) [facility] ([facility] ID Date Data Source [id number] 08/03/2019 06:39:00 PM EDT [facility] Name Value Range Interpretation Code Description Data Ava rce(s) Supporting Document(s) SARS CORONAVIRUS 2 RNA [facility] This lab was ordered by [facility] and reported by [facility]. ID Date Data Source [id number] 07/30/2019 06:23:00 PM EDT [facility] ([facility] Name Value Range Interpretation Code Description Data Ava rce(s) Supporting Document(s) Laboratory test finding (navigational concept) Laboratory test r esult Normal (applies to non-numeric results) [facility] RP PANEL RESULT NEGATIVE b y MULTIPLEXED NUCLEIC ACID PCR ID Date Data Source [id number] 07/30/2019 06:23:00 PM EDT [facility] ([facility] Name Value Range Interpretation Code Description Data Ava rce(s) Supporting Document(s) Lipoprotein lipase [Enzymatic activity/volume] in Serum or Plasm a 42 U/L 73-393 Below low normal [facility] ([facility] ) C reactive protein [Mass/volume] in Serum or Plasma by High sensitivity method 29.00 mg/dL 0.00-0.30 Above high normal [facility] ([facility] Lactate dehydrogenase [Enzymatic activity/volume] in Serum o r Plasma 389 U/L 87-241 Above high normal [facility] ([facility] ID Date Data Source [id number] 07/30/2019 06:23:00 PM EDT [facility] ([facility] Name Value Range Interpretation Code Description Data Ava rce(s) Supporting Document(s) Glucose, Fasting 101 mg/dL 70-100 Above high normal [facility] ([facility] Blood Urea Nitrogen 23 mg/dL 7-18 Above high normal [facility] ([facility] Creatinine For GFR 0.82 mg/dL 0.70-1.30 Normal (applies to non -numeric results) [facility] ([facility] Glomerular Filtration Rate Laboratory test result Normal (applies to non- numeric results) [facility] ([facility] <content>Units are mL/min/1.73 m2</content>
<content></content>
<content>Chronic Kidney Disease Staging per NKF:</content>
<content></content>
<content>Stage I & II GFR >=60 Normal to Mildly Decreased</content>
<content>Stage III GFR 30-59 Moderately Decreased</content>
<content>Stage IV GFR 15-29 Severely Decreased</content>
<content>Stage V GFR <15 Very Little GFR Left</content>
<content>ESRD GFR <15 on LINE PULLER</content>
<content></content> Potassium Serum 4.1 meq/L 3.5-5.1 Normal (applies to non-numeric results) [facility] ([facility] Sodium Level 137 meq/L 136-145 Normal (applies to non-numeric res ults) [facility] ([facility] Carbon Dioxide Level 27 meq/L 21-32 Normal (applies to non-num hyacinth results) [facility] ([facility] Chloride Level 103 meq/L 98-107 Normal (applies to non-numeric r esults) [facility] ([facility] Anion Gap 7 meq/L 8-16 Below low normal [facility] ( [facility] Calcium Level 9.8 mg/dL 8.5-10.1 Normal (applies to non-numeric re sults) [facility] ([facility] Ast/Sgot 26 U/L 7-37 Normal (applies to non-numeric resul ts) [facility] ([facility] Alt/SGPT 18 U/L 12-78 Normal (applies to non-numeric resul ts) [facility] ([facility] Bilirubin,Total 0.7 mg/dL 0.2-1.0 Normal (applies to non-numeric results) [facility] ([facility] Alkaline Phosphatase 78 U/L 45-117 Normal (applies to non-num hyacinth results) [facility] ([facility] Albumin/Globulin Ratio 0.93 1.00-1.93 Below low normal [facility] ([facility] Total Protein 7.9 GM/DL 6.4-8.2 Normal (applies to non-numeric re sults) [facility] ([facility] Albumin 3.8 GM/DL 3.2-5.2 Normal (applies to non-numeric resul ts) [facility] ([facility] ID Date Data Source [id number] 07/30/2019 06:23:00 PM EDT [facility] ([facility] Name Value Range Interpretation Code Description Data Ava rce(s) Supporting Document(s) White Blood Count 20.9 10 4.0-10.0 Above high normal [facility] ([facility] Hemoglobin 13.6 g/dL 13.5-17.5 Normal (applies to non-numeric resul ts) [facility] ([facility] Red Blood Count 4.25 10 4.30-6.10 Below low normal [facility] ([facility] Mean Corpuscular Volume 93.9 fl 80.0-96.0 Normal ( applies to non-numeric results) [facility] ([facility] ) Mean Corpuscular Hemoglobin 32.0 pg 27.0-33.0 Norm al (applies to non-numeric results) [facility] ([facility] ) Hematocrit 39.9 % 42.0-52.0 Below low normal [facility] ( [facility] Red Cell Distribution Width 11.9 % 11.5-14.5 Norm al (applies to non-numeric results) [facility] ([facility] ) Mean Corpuscular HGB Conc 34.1 g/dL 32.0-36.5 Normal (applies to non-numeric results) [facility] ([facility] Platelet Count, Automated 291 10 150-450 Normal (applies to non-numeric results) [facility] ([facility] Lymph % 2.7 % 24.0-44.0 Below low normal [facility] ( [facility] Neutrophils % 94.0 % 36.0-66.0 Above high normal [facility] ([facility] [place] % 2.6 % 0.0-5.0 Normal (applies to non-numeric resul ts) [facility] ([facility] Baso % 0.1 % 0.0-1.0 Normal (applies to non-numeric resul ts) [facility] ([facility] Eos % 0.0 % 0.0-3.0 Normal (applies to non-numeric resul ts) [facility] Immature Granulocyte % 0.6 % 0-3.0 Normal (applies to non-n umeric results) [facility] ([facility] Neutrophils # 19.7 10 1.5-8.5 Above high normal [facility] ([facility] Nucleated Red Blood Cell % 0.0 % 0-0 Normal (applies to n on-numeric results) [facility] ([facility] Eos # 0.0 10 0.0-0.5 Normal (applies to non-numeric resul ts) [facility] ([facility] Lymph # 0.6 10 1.5-5.0 Below low normal [facility] ( [facility] [place] # 0.5 10 0.0-0.8 Normal (applies to non-numeric resul ts) [facility] ([facility] Baso # 0.0 10 0.0-0.2 Normal (applies to non-numeric resul ts) [facility] ([facility] ID Date Data Source [id number] 07/30/2019 06:23:00 PM EDT [facility] Name Value Range Interpretation Code Description Data Ava rce(s) Supporting Document(s) SARS CORONAVIRUS 2 RNA [facility] This lab was ordered by [facility] and reported by [facility]. ID Date Data Source [id number] 07/30/2019 06:17:00 PM EDT [facility] ([facility] Name Value Range Interpretation Code Description Data Ava rce(s) Supporting Document(s) Fibrin D-dimer FEU [Mass/volume] in Platelet poor plasma Lab oratory test result Normal (applies to non-numeric results) [facility] ([facility] ID Date Data Source [id number] 07/30/2019 06:17:00 PM EDT [facility] ([facility] Name Value Range Interpretation Code Description Data Ava rce(s) Supporting Document(s) Prothrombin Time 17.6 s 11.8-14.0 Above high normal M EDENT ([facility] Inr 1.48 Normal (applies to non-numeric resul ts) [facility] ([facility] THERAPUTIC HUMAN INR VALUES INDICATIONS NORMAL RANGES PROPHYLAXIS/TREATMENT OF: VENOUS THROMBOSIS 2.0-3.0 PULMONARY EMBOLISM 2.0-3.0 PREVENTION OF SYSTEMIC EMBOLISM FROM: TISSUE HEART VALVES 2.0-3.0 ACUTE MYOCARDIAL INFARCTION 2.0-3.0 VALVULAR HEART DISEASE 2.0-3.0 ATRIAL FIBRILLATION 2.0-3.0 MECHANICAL VALVES(HIGH RISK) 2.5-3.5 RECURRENT MYOCARDIAL INFARCTION 2.5-3.5 Partial Thromboplastin Time 38.5 s 25.0-38.4 Above high normal [facility] ([facility] ID Date Data Source [id number] 07/30/2019 04:02:00 AM EDT [facility] ([facility] Name Value Range Interpretation Code Description Data Ava rce(s) Supporting Document(s) Lipoprotein lipase [Enzymatic activity/volume] in Serum or Plasm a 37 U/L 73-393 Below low normal [facility] ([facility] ) ID Date Data Source [id number] 07/30/2019 04:02:00 AM EDT [facility] ([facility] Name Value Range Interpretation Code Description Data Ava rce(s) Supporting Document(s) Creatinine For GFR 0.80 mg/dL 0.70-1.30 Normal (applies to non -numeric results) [facility] ([facility] Blood Urea Nitrogen 21 mg/dL 7-18 Above high normal [facility] ([facility] Glucose, Fasting 145 mg/dL 70-100 Above high normal M EDENT ([facility] Sodium Level 135 meq/L 136-145 Below low normal [facility] ([facility] Glomerular Filtration Rate Laboratory test result Normal (applies to non- numeric results) [facility] <content>Units are mL/min/1.73 m2</content>
<content></content>
<content>Chronic Kidney Disease Staging per NKF:</content>
<content></content>
<content>Stage I & II GFR >=60 Normal to Mildly Decreased</content>
<content>Stage III GFR 30-59 Moderately Decreased</content>
<content>Stage IV GFR 15-29 Severely Decreased</content>
<content>Stage V GFR <15 Very Little GFR Left</content>
<content>ESRD GFR <15 on LINE PULLER</content>
<content></content> Potassium Serum 4.0 meq/L 3.5-5.1 Normal (applies to non-numeric results) [facility] ([facility] Chloride Level 102 meq/L 98-107 Normal (applies to non-numeric r esults) [facility] ([facility] Carbon Dioxide Level 24 meq/L 21-32 Normal (applies to non-num hyacinth results) [facility] ([facility] Anion Gap 9 meq/L 8-16 Normal (applies to non-numeric resul ts) [facility] ([facility] Calcium Level 9.6 mg/dL 8.5-10.1 Normal (applies to non-numeric re sults) [facility] ([facility] Ast/Sgot 20 U/L 7-37 Normal (applies to non-numeric resul ts) [facility] ([facility] Alkaline Phosphatase 77 U/L 45-117 Normal (applies to non-num hyacinth results) [facility] ([facility] Alt/SGPT 16 U/L 12-78 Normal (applies to non-numeric resul ts) [facility] ([facility] Total Protein 7.9 GM/DL 6.4-8.2 Normal (applies to non-numeric re sults) [facility] ([facility] Bilirubin,Total 0.7 mg/dL 0.2-1.0 Normal (applies to non-numeric results) [facility] ([facility] Albumin/Globulin Ratio 0.93 1.00-1.93 Below low normal [facility] ([facility] Albumin 3.8 GM/DL 3.2-5.2 Normal (applies to non-numeric resul ts) [facility] ([facility] ID Date Data Source [id number] 07/30/2019 04:02:00 AM EDT [facility] ([facility] Name Value Range Interpretation Code Description Data Ava rce(s) Supporting Document(s) White Blood Count 19.5 10 4.0-10.0 Above high normal [facility] ([facility] Red Blood Count 4.17 10 4.30-6.10 Below low normal MED [facility] ([facility] Hematocrit 38.7 % 42.0-52.0 Below low normal [facility] ( [facility] Hemoglobin 13.2 g/dL 13.5-17.5 Below low normal [facility] ( [facility] Mean Corpuscular Volume 92.8 fl 80.0-96.0 Normal ( applies to non-numeric results) [facility] ([facility] ) Mean Corpuscular HGB Conc 34.1 g/dL 32.0-36.5 Normal (applies to non-numeric results) [facility] ([facility] ) Mean Corpuscular Hemoglobin 31.7 pg 27.0-33.0 Norm al (applies to non-numeric results) [facility] ([facility] ) Platelet Count, Automated 278 10 150-450 Normal (applies to non-numeric results) [facility] ([facility] ) Neutrophils % 94.7 % 36.0-66.0 Above high normal MEDE NT ([facility] Red Cell Distribution Width 11.8 % 11.5-14.5 Norm al (applies to non-numeric results) [facility] ([facility] ) Lymph % 2.1 % 24.0-44.0 Below low normal [facility] ( [facility] [place] % 2.6 % 0.0-5.0 Normal (applies to non-numeric resul ts) [facility] ([facility] Eos % 0.0 % 0.0-3.0 Normal (applies to non-numeric resul ts) [facility] ([facility] Baso % 0.1 % 0.0-1.0 Normal (applies to non-numeric resul ts) [facility] ([facility] Nucleated Red Blood Cell % 0.0 % 0-0 Normal (applies to n on-numeric results) [facility] ([facility] Immature Granulocyte % 0.5 % 0-3.0 Normal (applies to non-n umeric results) [facility] ([facility] Neutrophils # 18.5 10 1.5-8.5 Above high normal MEDE NT ([facility] [place] # 0.5 10 0.0-0.8 Normal (applies to non-numeric resul ts) [facility] ([facility] Lymph # 0.4 10 1.5-5.0 Below low normal [facility] ( [facility] Eos # 0.0 10 0.0-0.5 Normal (applies to non-numeric resul ts) [facility] ([facility] Baso # 0.0 10 0.0-0.2 Normal (applies to non-numeric resul ts) [facility] ([facility] ID Date Data Source [id number] 06/18/2019 02:00:00 PM EST [facility] Name Value Range Interpretation Code Description Data Ava rce(s) Supporting Document(s) Follow Up [facility] EUUOOn2xWeUAOhKjPKLjVciLCWugTUcsWMQnQ3Q6RChlJh4LSAxotjSyEANgGt4+TTTtKW8mgg9cPINb gMy 0kUMIwNcdgY3LjHSAkx07XDNRaNRvNLxFiAmBoKsD8FBQdPNNqTHA0VnXeWssnAP6iEXF3NXNiFNhrWS VvQIFiXWM3WAA2HX8rWKdiXQymBt9XFW9aw8JiIMRdHMEwEusOMOsyQNxyWXUvZIVoAAScP009uuRjBQ 2WkMNfTLd9KBUeZbV0PEAiIkL1SIQrRhDiQwSxKDCf X3Hpu663clJtscZ7PK3IQ8ZjYVB2WHr5A6yqEmTsPEMcHQWhCN2zKtX6ZLDpMv0LbNkkSWHqKLBcNj5X zGp7RSH1RVCdVh0+Pj4+Ok9iubKkFnoRHJJeKI2xae97KH0GiGKiJW9TGFjyN99pRXaqSf65MMleJBOr RqAuDNj4Rl2tBbWra7EfS2HxVDb6G6hQShzgQ1NvUE jrSF6rBNJ3LADoPq1+Xp1bHYKtYR71DDQwPSGRD7MgovUmxuBxCJr4RDYgOf6+Px8rzeUiYxmVCMEqZY 0bdf61ZI8ZHB0vjOhePvdfDDZfK65rkYMkS4gfBaUzH4SexIuyDPUcMI4kH0QzSThmUTBxKI0gyfOaoA 9CcDs4FPBbZw0YvBJ5TOUaE38tMFWtFAIRDXFav2Em MQ0Us2pgwyRoZFPcXM8SXNKhX9EJX0RmG5iivRqeEDIiXD4FYZtirADzLEe8PH8ZwFSoLZFwP05qnW6r GN70PHu+ZeD7jpYqpY5KrIhdh4VEkM+28fdxSLU3GCqz8E2RG6L1DFua3uUJdsRWZF/i4v7j6ud6xSYS QGW521SxkCl2Sibw2w1DtR2LG7/q7m/90b764t2kY5 [file] AoY0Ml8pXfRHKcMxSSUuenDFNra4Rm9MQxtnA/EKPmJdwr02LCkXJbgdNtH+area development consultant/r83878R2bvR562Xk [file] L++Awznu74HHCV8Pgmydyz10HCZREO3XikIAxtMaFcl7mtscZTj9tIgaWWvPuwMasnfV3QuSM+Juan Daniel/6l [file] global vp creative + content marketing/5MKpuc5HqhDeeWjmlu8i05Gbk2CBRsvsZQmZdWS [file] iyGh/QvT56e3IA1XjO6xmUAdhITcRmDyplZm+Owxco4PQaDwYn4Jj/ornament maker hand/TwFu/ycR2a0NomdjagHAsp [file] 3NFIBIKaUhpoQeS0fP9O4mkjDRn8py3iiUBrri8En0mXRk3MDfWxabioS7whkGERjzj0CcHzEKPMY+director talent management [file] OPMexaOkkrgA/gBodm3orlDpJyOUGnwf9BTCcnW496XdSqG7Xo2FEKKbkAZJCvVX25BuELgvdVZ2H+auto service station attendant [file] global vp creative + content marketing+vk7qFgNi+Vm4xIZn7XnSaRLxxgxYVrGMIYH/psp [file] lL+kkzAu9GuNEkhon4LxaA45N494qJj4PjFRCAPR/SALES RECRUITMENT SPECIALIST+J6ALtMAgSeug9+gPSpiSEsqH35xK90iceTer [file] 02nDf4lLi82sYUx0xcZpENvVXmF+auto service station attendant+CW7OXj9dro2 [file] engineer sergeant/5qh08ZUqzec7LrIipZv8673n1l+dts6F80hr8Ga2LpeuH1uAb1nIvu/DAxB6SCAd3Q4I0Gr4duCS [file] LAtE8VMik7TXd/UIiMN5bQhJ86od6y9YwAPkTg+Tavon nLjDv1tdDkAMonhYWllXESuYjX/vxuNExjAb9KzVm04YXj+1PFuKohUpfG/GzQNhSc6rP48VVvvhDpQE T7ZQc2FJiEPeP095B+COAquegYGUvhsDn4ztsv3IhNF9/qaY9ssi3A67fzPLaM15CEgMY0eVwA0UbwVf OL3OqSUBOI3mC95qCPNF+rfQG2RmHx/YIisCPFDh12 zcltN78eLhoC2xsj6H5Cd5bfab4Zt3dzM/CXaX87j4CvOLH5+++BUvyTHD6s21fh6n3JD1ivXU9LUFON home furnishings sales representative+dxYbR+EPtMY+/8pD8qa6rWqYYKks6dI4noIpnNuMMb6My7ybhrS1B2b8WtfnGg2bqr6gqHulX3I/ [file] XsD6izIZydW1I8SeZ73y9Fikyr2GRGtWFn/9XfRAkI8ldM67113Wnimt/auto service station attendant/ju5gtatNbEvoSBe0B6Gb [file] K42fEvxJwDOD7O+OO5naLy/ltv+qQPLtpiKdXsGCa62mxS+security architect+nvTs7kE9OrWAzdp/nplzmWxhvr5yn [file] X/mS0QE8yWWw3UMd+nuryDEuBhl9ch6Cs+zmyJOcpo1U4fydpf/JtxnWaa2HbD5a77k6qPGUIk6R+SECURITY CHECKER [file] Ys747ftgH567/Uefytr2UGlKQdQSOiqU0zoPSX+family services worker YR7hZ8ekc6iP9R3Rc2KoQ72y46tYtNTa8Jz/felicity//uDII1fDVmUnSQlh1xlwVgd91sfC+cowOfPY0vQ6R [file] +RH3yyau+usvKMhbVT3je0+nynA7ntco1pXNJ+x+engraver ornamental design [file] mgPnkrOIWTEOuwT9E90AcgUqjDLElMmBrT//eN+Jose Manuel [file] [facility]+PF/ZfOpi7VHX1js9fuEguDVSUMyRz1NI4KsTe+qN6IL7QEXgDZnc/6sXIZhNvZmTat0C311J [file] HKR5so8sACEAAZUKVS78BATQWZKjCAB+xgaTeXLCmF oG07uymdW/AX0mALx0VM+m9WgUu0f/oAgS3C7VsTzIhD9ojSj7v+k+Z/hgzZSi9x5eGW6QnolBk1GuUN 5AR7OlX36zU/E0+UyfyRFtW7FGidzeXdY+jRMmzGGIsOCYHUqjtD5jYPN9wA21FAg250XxceJrDydcmJ dTzg6qXr5t1Jocs6GN1FYJGIuQFm0muuM6TcdyFxui eVuTy4d3eZ5ZrhRZzUpkUGeKsyIk+vplmpBKMNtqo+D9++aAtwPpJIV0D3f281TwN25bq1vp4Saq/DET 2x4hjIlVFwLeSAZtjceeCV2lVP5c/7tuSjP+64jEVqG527Q/bCuckv3+XKbvQ/WmM0qTU8I5A5Yh+ZWk Qoa0B5nr0U3ZBtb6Q8D1pE06koll0o5g74VdqCvIZ+ sjIp9ENG0Rxop+H7z77OazASGu4h4eBzMeCYk/veyweL2KqcKP8S8u4Zq1985/Flzbgt/IqJWMYQkacE 1+HRiV7Efc06UxxaXg/iNZT2A5SZKsDdrs7jne6pW8wy8WSbVh0jfJXPPfstZFC9Ww/1+7sH1nF+Nn3S /HbvQR4vZqvECNbi3V8rBXKg2Ajy/fRyGukOsb9Bxf WYel8c6r7lbITPjbn9Cbikw/rXK5c24dU2TRGqbjq6nQmmaIhU65tVnBubgKhBkqdcZ/vsdMXnXqtEPs zYR9qurbmqKj90//gQKxpGS1frD18oUGiTHc4qTUDeEldF66J/ClKEYv4YyCQtXTRv/LO8+César+JRZYo fjXKvHFjExiMYsxAj60jwqdyxNATc+0A4cUbgfoanh T0PNpTp4FAM8DHYxzjlDOK4p+BA+/4PZjToGKja8oXCFhDKuqH3/dY0zc1MCgWYgEkf/mAZYLbaa3NVe n4NC9TgCnfGFO8hk0+Tsfak7JywYqGfy3t94rTjUC4yDpesEhVg5q2I0TSmtnycZ3KQB1mATbBzOZOiF T/QvEl9vRlhsH9+dEng9Ug5oe5YY269qghEwdwcqst fcy4EYKS1FZOfCrMrt1CRv5okGuhrBV3M3W35E+D+nlmctOhHKIABOapXwni1n0n1eJQX8X5W1iF2t11 0uxbdVMMxm7nJhZmoStLduT5VbHQOudZGLAkPJg4GNf4zeN2R3LXFf5aiAw/5u/7Nq0vVwuE//H8X6Ug wI98neEqe+/ALZEWXoaUxCobOyQvctbSe3IRujn3UQ F4qy3uR7Xh207tgJJ+xQrTc4iSOXZ03PLPkzkX5tmMFaDZyN89r/xlfHJVwxmliuNAB3kIqvsHm+ZFln /yPeQfL0DuWIzVqMXRo8vkmDZCRMN7pSHz1j5LwvRdKtRo7obD9ZIkUYMF04/DqhPmn6C/gF+oTjD84Y 0czS+zO1zkK4vQidf2BhW+dLOgq6H9RSp6ut6b0EVa dA1aNyMf/5+G774JQ4xc2vkyvk+G6c6KVQ0gvsgB6I8tJiyPfgffRn9Y+3G1HggfASj8SgK/oqLNIKcl 5QiWB74CCBN8gcsdWTtV1Iq6/shiraz+DD8nG5AnkMJ1CWtXznEO+WExmtx68jsxE0CGW8zB5Bp6RWuL29TR [file] [id number]= Procedure Vital Signs ID Date Data Source [id number] Name Value Range Interpretation Code Description Data Source(s) Oxygen saturation in Arterial blood by Pulse oximetry 99 % 99 % SARAHI ([facility] Body mass index (BMI) [Ratio] 23.4 kg/m2 23.4 k g/m2 SARAHI ([facility] [place] body weight 190 [lb_av] 190 [lb_av] RAHAT Pereira ([facility] Body weight 182.00 [lb_av] 182.00 [lb_av] RAHAT Pereira ([facility] Body height 74 [in_i] 74 [in_i] [facility] ([facility] 6'2" Respiratory rate 16 /min 16 /min [facility] ( [facility] Heart rate 90 /min 90 /min [facility] ([facility] Body temperature 99.1 [degF] 99.1 [degF] [facility] ([facility] Diastolic blood pressure 72 mm[Hg] 72 mm[Hg] [facility] ([facility] Systolic blood pressure 122 mm[Hg] 122 mm[Hg] M EDENT ([facility] Systolic blood pressure 122 mm[Hg] 122 mm[Hg] M EDENT ([facility] Oxygen saturation in Arterial blood by Pulse oximetry 98 % 98 % [facility] ([facility] Body mass index (BMI) [Ratio] 24.5 kg/m2 24.5 k g/m2 [facility] ([facility] [place] body weight 190 [lb_av] 190 [lb_av] MEDEN T ([facility] Body weight 191.00 [lb_av] 191.00 [lb_av] MEDEN T ([facility] Body height 74 [in_i] 74 [in_i] [facility] ([facility] 6'2" Respiratory rate 16 /min 16 /min [facility] ( [facility] Heart rate 78 /min 78 /min [facility] ([facility] Body temperature 99.6 [degF] 99.6 [degF] [facility] ([facility] Diastolic blood pressure 76 mm[Hg] 76 mm[Hg] [facility] ([facility] Oxygen saturation in Arterial blood by Pulse oximetry 90 % 90 % [facility] ([facility] Body mass index (BMI) [Ratio] 23.9 kg/m2 23.9 k g/m2 [facility] ([facility] [place] body weight 190 [lb_av] 190 [lb_av] MEDEN T ([facility] Body weight 186.00 [lb_av] 186.00 [lb_av] MEDEN T ([facility] Body height 74 [in_i] 74 [in_i] [facility] ([facility] 6'2" Respiratory rate 12 /min 12 /min MED[facility] ( [facility] Heart rate 68 /min 68 /min [facility] ([facility] Body temperature 98.7 [degF] 98.7 [degF] [facility] ([facility] Diastolic blood pressure 74 mm[Hg] 74 mm[Hg] [facility] ([facility] Systolic blood pressure 114 mm[Hg] 114 mm[Hg] M EDENT ([facility] Oxygen saturation in Arterial blood by Pulse oximetry 98 % 98 % [facility] ([facility] Body mass index (BMI) [Ratio] 21.4 kg/m2 21.4 k g/m2 [facility] ([facility] [place] body weight 190 [lb_av] 190 [lb_av] MEDEN T ([facility] Body weight 167.00 [lb_av] 167.00 [lb_av] MEDEN T ([facility] Body height 74 [in_i] 74 [in_i] [facility] ([facility] 6'2" Respiratory rate 14 /min 14 /min [facility] ( [facility] Heart rate 90 /min 90 /min [facility] ([facility] Body temperature 98.9 [degF] 98.9 [degF] [facility] ([facility] Diastolic blood pressure 76 mm[Hg] 76 mm[Hg] [facility] ([facility] Systolic blood pressure 116 mm[Hg] 116 mm[Hg] M EDENT ([facility] Diastolic blood pressure 62 mm[Hg] 62 mm[Hg] eCW1 (Replaced By [facility]) Systolic blood pressure 112 mm[Hg] 112 mm[Hg] e CW1 (Replaced By [facility]) Body temperature 98.3 [degF] 98.3 [degF] eCW1 ( Replaced By [facility]) Respiratory rate 18 /min 18 /min eCW1 ([facility]) Heart rate 132 /min 132 /min eCW1 ([facility]) Body mass index (BMI) [Ratio] 21.44 kg/m2 21.44 kg/m2 eCW1 (Replaced By [facility]) Body height 74 [in_us] 74 [in_us] eCW1 ([facility]) Body weight Measured 167 [lb_av] 167 [lb_av] eC W1 (Replaced By [facility]) Oxygen saturation in Arterial blood by Pulse oximetry 95 % 95 % MED[facility] ([facility] Body mass index (BMI) [Ratio] 21.1 kg/m2 21.1 k g/m2 MED[facility] ([facility] Body weight 164.00 [lb_av] 164.00 [lb_av] MEDEN T ([facility] Body height 74 [in_i] 74 [in_i] MED[facility] ([facility] 6'2" Respiratory rate 16 /min 16 /min MED[facility] ( [facility] Heart rate 104 /min 104 /min MED[facility] ([facility] Body temperature 99.8 [degF] 99.8 [degF] MED[facility] ([facility] Diastolic blood pressure 88 mm[Hg] 88 mm[Hg] MED[facility] ([facility] Systolic blood pressure 108 mm[Hg] 108 mm[Hg] Mague LALA ([facility]
[2020-06-06] MEDS ORDERED: ZOLO100T (15:07)
[2020-06-06] MEDS ORDERED: HYDR50TA70 (15:07)
[2020-06-06 15:37] LABS: BASO % 0.1 % (0.0-1.0); HEMATOCRIT 45.3 % (42.0-52.0); HEMOGLOBIN 15.8 g/dl (13.5-17.5); LYMPH # 1.7 10^3/uL (1.5-5.0); LYMPH % 7.9 % (24.0-44.0); MEAN CORPUSCULAR HEMOGLOBIN 31.9 pg (27.0-33.0); MEAN CORPUSCULAR HGB CONC 34.9 g/dl (32.0-36.5); MEAN CORPUSCULAR VOLUME 91.5 fl (80.0-96.0); MONO # 1.5 10^3/uL (0.0-0.8); NEUTROPHILS # 17.8 10^3/uL (1.5-8.5); NEUTROPHILS % 84.4 % (36.0-66.0); PLATELET COUNT, AUTOMATED 348 10^3/uL (150-450); RED BLOOD COUNT 4.95 10^6/uL (4.30-6.10); WHITE BLOOD COUNT 21.1 10^3/uL (4.0-10.0)
--- OUTSIDE RECORDS SUMMARY | 2020-06-06 15:45 | CCD ---
Author Author [facility] Organization [facility] Address Unknown Phone Unavailable Care Team Providers Care Community Health Educator Name Role Phone Dhiraj, Odette DO Unavailable [...] Unavailable Sarah CARLOS MD Unavailable Unavailable Sarah ACRLOS MD Unavailable Unavailable Sarah CARLOS MD Unavailable [...] Unavailable Sarah CARLOS MD Unavailable Unavailable Sarah ACRLOS MD Unavailable Unavailable Sarah CARLOS MD Unavailable [...] (TERRANCE), Mague STOKES MD Unavailable Unavailab le CARILTO (TERRANCE), Mague STOKES MD Unavailable Unavailab le [...] is protected by Article 27-F of the [facility] Public Health law. If you continue you may have access to information: Regarding HIV / AIDS; Provided by facilities licensed or operated by the [facility] Office of Mental Health; or Provided by the [facility] Office for People With Developmental Disabilities. If such information is present, then the following [facility] mandated warning applies: This information has been [...] law may result in a fine or retirement sentence or both. A general authorization for the release of medical or other information is NOT sufficient authorization for further disc losure. Allergies and Adverse Reactions Type Description Substance Reaction Status Data Source(s ) Vancomycin HCl Vancomycin HCl Vancomycin 50 MG/ML Oral Solution Rash Active eCW1 ([facility]) Family History Family Member Name Family Member Gender Family Member Status Date o f Status Description Data Source(s) Unknown Male Problem [facility] ([facility]) Encounters Encounter Providers Location Date Indications Data Source(s ) Attender: DIVYA ESTEBAN ([place]) MDReferrer: Brayan CARLOS MD 05/21/2020 08:21:01 PM EST [facility] Attender: DIVYA ESTEBAN ([place]) MDReferrer: Brayan CARLOS MD 05/21/2020 08:21:01 PM EST [facility] Outpatient Attender: MARK CARLOS MD [place] [facility] 07/2019 10:30:00 AM EST MED[facility] ([facility] [...] Radiology Imaging Outpatient Attender: MARK CARLOS MD [place] [facility] 06/2019 11:30:00 AM EDT [facility] ([facility] Outpatient Attender: MARK CARLOS MD [place] [facility] 11:00:00 AM EDT [facility] ([facility] [address] [address] 08/20/2019 12:00:00 AM EDT eCW1 ([facility] [address] [address] 08/20/2019 12:00:00 AM EDT eCW1 ([facility] [place]) Outpatient Referrer: Chuy SWAIN 08/13/2019 05:34:0 0 AM EDT [facility] Attender: MARK CARLOS MD [place] [facility] 02:30:00 PM EDT MEDENT ([facility] Attender: DIVYA [...] PM EST [facility] Attender: DIVYA VELÁZQUEZ) MDReferrer: Brayan CARLOS MD 06/18/2019 08:20:02 PM EST [facility] Attender: DIVYA VELÁZQUEZ) MDReferrer: Taylor Hearn DO 06/18/2019 08:20:02 PM EST [facility] Medications Medication Brand Name Start Date Product [...] 12:00:00 AM EST ORAL active MEDENT ( [facility] 100 mg 03/27/2020 12:00:00 AM EST tablet 90 TAKE ONE TABLET BY MOUTH EVERY DAY TAKE ONE TABLET BY MOUTH EVERY DAY SOLD: 03/28/2020 [facility] Sertraline 50 MG Oral Tablet [Zoloft] Zoloft 02/25/2020 12:00:00 AM EST ORAL completed MEDENT ( [facility] 50 mg 02/25/2020 12:00:00 AM [...] A DAY BE FORE MEALS SOLD: 04/08/2020 [facility] 40-1.1 mg-gram 09/20/2019 12:00:00 AM [...] type / Coverage type Policy ID Covered alliance party ID Covered alliance party's relationship to newman Policy Newman Plan Information R [facility] [id number] FA2 [id number] [facility] PPO POS [id number] [facility] Care Management [id number] [facility] [id number] 3 [id number] [employer] [id number] 3 [id number] UMR PENDING SALE TO [facility] [id number] SP [id number] Umr Care Management [id number] 3 [id number] UMR O [id number] S [id number] [employer] [id number] FA2 [id number] Umr/Uhc/[employer] Health Maintenance Organization (HMO) [id number] Family Dependent [id number] Umr[employer]Uhc[employer] Health Maintenance Organization (HMO) [id number] Family Dependent [id number] [employer] [id number] [employer] [id number] Family Dependent [id number] [employer] [id number] Family Dependent [id number] [employer] [id number] Family Dependent [id number] [employer] Commercial [id number] Family Dependent [id number] [employer] [id number] FA2 [id number] [employer] [id number] Family Dependent [id number] [employer] [id number] Family Dependent [id number] [employer] PPO O [id number] C [id number] [employer] Commercial Family Dependent [employer] PPO O [id number] S [id number] [employer] (pr) Commercial Family Dependent SELF PAY 2 UNAVAILABLE 1 UNAVAILA BLE Problems, Conditions, and Diagnoses Code Display Name Description Problem Type Effective Dates Data Source(s) J18.9 [id number] Pneumonia of both ariana ngs due to infectious organism, unspecified part of lung Problem 08/20/2019 12:00:00 AM EDT eCW1 ([facility]) F98.8 [id number] Attention deficit disorder, unsp ecified hyperactivity presence Problem 08/20/2019 12:00:00 AM EDT eCW1 ([facility]) K44.9 [id number] Hiatal hernia Problem 08/20/2019 12:00:00 AM EDT eCW1 ([facility]) K21.0 [id number] Gastroesophageal reflux disease with esop hagitis Problem 08/20/2019 12:00:00 AM EDT eCW1 ([facility]) Results ID Date Data Source [id number] 04/20/2020 02:00:00 PM EST [facility] Name Value Range Interpretation Code Description Data Ava rce(s) Supporting Document(s) SARS coronavirus 2 RNA [facility] This lab was ordered by [facility] and reported by [facility]. ID Date Data Source [id number] 04/20/2020 02:00:00 PM EST MED[facility] ([facility] Name Value Range Interpretation Code Description Data Ava rce(s) Supporting Document(s) Laboratory test finding (navigational concept) Laboratory test result [facility] ([facility] This nucleic acid amplification test was developed and its performance characteristics determined by [facility]. Nucleic acid amplification tests include PCR and [...] detected) result in this assay. Performed at: [facility] [address] [facility], [place], [place] [id number] Lead Investigator: Damaris Bernabe PhD, Phone: [phone] Not Detected ID Date Data Source [id number] 04/18/2020 10:34:00 AM EST [facility] Name Value Range Interpretation Code Description Data Ava rce(s) Supporting Document(s) SARS coronavirus 2 RNA [Presence] in Res piratory specimen by [facility] with probe detection [facility] This lab was ordered by [facility] a nd reported by [facility]. ID Date Data Source [id number] 12/22/2019 12:00:00 AM EDT [facility] Name Value Range Interpretation Code Description Data Ava rce(s) Supporting Document(s) SARS coronavirus 2 RNA [Presence] in Res piratory specimen by [facility] with probe detection [facility] This lab was ordered by [facility] and reported by [facility]. ID Date Data Source [id number] 11/21/2019 09:30:00 AM EDT [facility] Name Value Range Interpretation Code Description Data Ava rce(s) Supporting Document(s) EGD-Colonoscopy [facility] TMLNDp0aWuAOMzGjJKIyPvfSVIamZSvkLJPlO8N2UOrgFo6NXAlbeyYtONPvWz9+QHHhDE9jut7oQIIf gMy [file] sap bi architect+mZckc11jdjOjEsfvHyHpemz2d4qTZGOZ9Bova5LjNHvZ7kyOQFvGha5UpJeCyF25SOMbnTpB1kx ubL8S8Faw6q52MhFhMCz+XDbmfyB++ufTnZsmIDNGlSPByMrQUi7Fe2ZtIZbz53FmlmvUJ0gRIT+7AM6 n8xk6FjCRiyMKomPzsyuB3UogFBcCmdYyDV92I4rZM CYMPgumQ0jJF+dEU4Hj51dfkoTaDR36ua/mmipzalyuOo+QLcLUXMkCxfjAY3aWhNbpPXRgm6NDjmNiZ 2pIewjPRf3vKEmmH0klfmROym7K/6fphfgZcSd+WqbJCrrWcyez4ZOspsV2/JnV6ObU72IaEgH7qD5vb nWeUc8RUWbeyb/uf7ztJKmQeiyMVjVQpwKFl/aidsN Fw3F2ea1RK558QRpF5lQkXbInJLgK8YF/Kswfm1MeITyNHzk+Gzk/P1EgUQ72hpSrje0YT70rL072sYR Wg6bE7hSwRYZWnhFu/deCWipvmL8PxMncbA0LSm8TC93s2C9u0eNnuRcZno0oksccMxe02t9gDp1omJ9 uxH00dqEXw+dppYePISqsG4Z0lrzbakgYH1nN6/biju [file] qd+FHenmhZAbTnSRQI48xnncXmEomKGfDa5agq [file] h6583OBhzJMRBzTtCqFEz+Светлана/HBMEvF2LUiz6OgNEg0JohNLX5QxBndZvd2LFemsFaewb+wBZg2iCt [file] 12LoJSH9mJAySzOG6c6E+prefabricated houses trimmer+KfXH9B8BQ9vitUbW5 [file] Juan Miguel+pb67aKi6s4TzzbnQeeGXtV3tZV9fXCn4TxpY7ryDzJk2NNGvm7G7MfRafxF7n5n9g1mm08eKvzqe [file] EQbqRfduDlY34iHwD+QKMy+b1Rw4jUr97nTv/okRbFSLe+Oil Furnace Installer+yFChh1Uqal2HU83tUrX61wpRUEYXKk3 [file] 1jKxYgc07qV2z/6jcv/dining car server/R6xnqKejTtk5djSWOVPoMM/GRIJEiQ5+4YcP3llPoxazvs7d/Gn3KVpM2v [file] IWeiBEFAWHziC/Oil Furnace Installer+6k8F5/TEV7v5MAOjrNkYupCF3/8P0gVJu5C79gLuVmX90x5/wbFR0IlR38AoHBK TWqLcnWEs628/+Ji73QKe99ONNr5VwlwhophJ+7g608xOozIBnEx0elhvvlYz7tpa6qVxZ5f8D5UTabQ nSmvHmKpszNNzvZTomXHRLGnKlWfnJCoyFx+0Vra3i CELINE+9ut0o5joizWjjf11QqRcp0GBb+R03cwkX/aqH4JAypAwrN5WD6wbLNDT5jlKHzFxZqk7JuH/Tf5x fzsPe7WzvlB52hTKnpgCl90fcVO9RHweKLQDMOAl8bv8w6xl/qI1ZTRdd1ogDHlv+0TncDR1gyV2viWU D9i2KrIhylCPbaXhAIzvAxtXYNfhCD45EgnP3g7UZr WHPVQeDCL23lk+sxNWoQL1opNG9ADmormjnW5NltYchSh7ASWusl9/HlgJg4oJ23z84fQVtRCnX7c1Kp 8lD2W9o62A4Cdm4iX13D4nnkzPUZAm/j00vJWOz8W2pn6RMFsHe+4wIrJf+MCL8HLZFlwh06PGTavazb Q6reQ7WGu7bJ8D0jADrzLyY859A8h3r5D8Ku70rF76 [file] Yyw4FNq1Hv4XWCSWE2J= ID Date Data Source [id number] 09/20/2019 08:15:00 AM EDT [facility] Name Value Range Interpretation Code Description Data Ava rce(s) Supporting Document(s) Follow Up [facility] JEVLKv8nNmSKIsRqSMYrExeXWYsaCNauNIQaT7Y7VFwgAd7XDSlqtcCnXRCcTw3+NRLeZN4zwi6eAPWe gMy [file] QCdXSznyZWfYx6QL0hJDtvpf3/F+vVDvdQ/utvRbfhsa5YO6wXfzfasvBeNVIdiSW1M9HbB3/bK/wallet assembler [file] patternmaker hand/kpHtugkC26riVO3wsUn9Vc+33/vy3E/cKcJY59l BXUWCQSYZ75dln1iD6PZjl+BLYxILl7DP4PIgo54ql1vdRszidO0+CaSv+hrFGjkg4x1vO5oAlLNI6dx /b8oQ/+1/ogvCxsITTQG4Vv4mKB85CvFIAOSkGLSSJ1q8E+Y1VAJlqp9wMk8iPvh1VQFcQmLyjC5sfaT SH3SNnqtWnG+6OTV5O1vKCO1II1eyoX3oC0UVkKisl w/1tuSWZz8yH9jMs8rvkwdU10rMDHVmWgdwkT91Jnw9sVvPVa8VccKLyPS/Arauz+1y5jg73w5+oNYBEjj [file] /ofZGHcAnDyV0b6oQaOKVmhwybmqK3nIwmm61B [file] hnBqMjvS+IlPdsYwz+patternmaker hand/bEKUDveyM+RPYrZnqD8VT [file] +manpower development specialist manager/jnD9bjdyNZrNIpNCaFHgEc0dsoK/gI+UuoL4Nj2a8egEF+XTl/g2+Whhug2VPndhysdSJvgX2Gz [file] flight mechanic/JovHPxGaihx5zZvWgtU3aLDHjcXxPnmYE4Bivo [file] d8N+yTnYqOxBQSG4Dc63BADM+KIo/5j8/tEH2tUcjrpX6BH9NSHlJR/pcJrtivIOyTsCZfXs2nOlD+Silvia 8oR4rh7co6775KzbVPGorbI3ZZnPCPwiFEkKdP3CWlL7kG3ouoCorsg4LtNth4muVN+5UsUTdOqgqSCW c5sSuh8/LjTBUEbutUoHn02gm08WoqPpmPWocn3zkk WseleC65d9c1K1Ejv1HZGvkI4cuV+Bbnz+MEEgjiTo8nHlOtmFOcAFpqUIldbVBBiZ13qHFePtrR6fCs 8GmjbQHpD376HRVVzwRMyF+hbQeoMPDxFz4DZgCtUvy0sZUFscObyqQdpamXu58poJT4Ixq+zzdPZ6y7 7vZzqkRATaBsf3otZXCD9upbCf1/zIvlRYqRgfnioU UJhdU6musRnsrvzxr9friX6mu4LqBrxFa5GDapho2jE2Em8Cbf+XX2We5j4kND05meXaavcEmd72g5qf t6L6A/0eV8PGpHkt38GfmKLL8T6zD9QPtjmoMn76ln8ZWQwQ8wPbKaFE+LJURZ2DW+3SuNHFveGqL83D Halwui+CB+1v7YTXveoEPhhe5fkb3+PIwqydLXZM+n AEaujWjwJTZ/YXmWYJkMlYhQhwCFwWiGwJZEBAWnDp7TYN7Ey/Toñito/OShWbi/esAf+WUQujDs3bR2zxF [file] j4VtMET2DfELozYKrVxE69lm1g+8iqB4eP8Sp95EyVqYnhmLIWVVUW87lw/+PSlwBBPwu0aeUSdN+pipe fittings molder [file] CV+o60bpmAu33uI7qfFk8L7lLC31p7ZhuMVdsCNAos34e0/Gc2+SdT2Q/Nu5DnOKBaKgPO27iIbb+delivery sales worker [file] EQM3LUXXRVrjY4CtXFaHr0kop6uyCQxVxoHSA8/assembler metal furniture+W5CuAWnpA+z4eeen/3BDKAQLbop8OKdjN7x6A [file] CpfG68PNnPwE/[place]/pXsEVVP8nDITiNd+o8llugX/ [file] patternmaker hand+iSbxK/Zo2PGQmSdEpXSvf9ODh34Rvks5sV28iOawdJ5jflJM3BjxXcRgHEzOoH19zgR2sDIWVpXq1 [file] QFKXT+BqLE/U0bHFbGwiMOseQS/patternmaker hand+dwhUOgSZX0GEAXGkpG+LBZr3af/LTQS+RlfGmNw436endKgNh7 [file] gfEtrurlM5tD+9Dd6B+dining car server+8ptTnt8HOB0qhTYXzyc2mXCWfIE8iFzKJGa4c0SLr21LlhwIG/XeyVB2aT [file] evp and chief operating officer/h/ucF0vM4J3ZmRkD4VHyzfhRNq3V+qqYJHAQHPT [file] 42Ft2bzeJ8subvjdgKLGrPP08n+Danial+1+B4243FGrBAgeQlsJtBeLrJ47mAIFtiGk/GuG4pF/EMCCKO hzduKQcsNl1sn74h2wT5GcJpOShmSbqIF24fhf11xB6DhOAZiGDW0oR41ct3W2vB12enf7tr0aXxw8Kk dSO18t3uI3Qaw5T2bVr/bB9w8NICQgVqmb6t+ZK66q HiO+zMu1ZAKHNdnBFPbmTjmxXFlV9F+zUBH/+z7MjXNc4oEKFVGPR7HThtCyuzoK9eD7qpcOm/wVKUvh zurUb5bojXXkgzKHxtwJKqvaEnIJbro8nv+convenience store clerk/1dYNTeebt2y6j2PzWVCOak/racRP615OCDNVmSLYt [file] yjvVWybXRujkCv/GROUND SCHOOL INSTRUCTOR+LGo2b0jgPuIYqUwE5SFRKiakvdouKkYnySuOb3hmlcnEVw0dIy5NrknR72TPxv [file] paper control clerk/aSqdKig58j7hpT8qwmRtzk5h2sT7zkH5QVFaaoRWNa48LyKXpp2Xz6n0kUtGt/vMcmlrc0DAcEkh [file] 6lxRXK7aZdwr7bCONRpQM03hBARI7i50iDmBNi7sNIN0+Pu7OZq+Hu/Cfnrj8NIyak2F0Db13L4b5+Oil Furnace Installer [file] ljUuUcxNSWXR022sBsbfy+d5WF7RsFoIGLpZdebg0iBUie1/DQ5N/Екатерина+sV9rwDcD4aAtSyqHz9z0Cnq STWzrrhsJojknKEz0sgOzpaWpTnAjvkdyvmiSjWqMJ [file] jdoMNmY4d6NZE4vsAE+rJ+0iuqkT+GROUND SCHOOL INSTRUCTOR+g5KQKlU6sf [file] 1uzkZvcunx36ZMx0bMj++dV61R84zcZAtaSpsM+Adán [file] 8rAwDHMw+gHQlwawUunFEtBF2JEsHsMY4wlk4HHiB6DCO8fLTgIv3DIJQ5PYG9HZ6RQOMGU3D= ID Date Data Source [id number] 08/12/2019 03:06:00 PM EDT [facility] ([facility] Name Value Range Interpretation Code Description Data Ava rce(s) Supporting Document(s) Natriuretic peptide.B prohormone N-Terminal [Mass/volu me] in Serum or Plasma 57 pg/mL Normal (applies to non-numeric results) [facility] ([facility] C reactive protein [Mass/volume] in Serum or Plasma by High sensitivity method 2.60 mg/dL 0.00-0.30 Above high normal [facility] ID Date Data Source [id number] 08/12/2019 03:06:00 PM EDT MED[facility] ([facility] Name Value Range Interpretation Code Description Data Ava rce(s) Supporting Document(s) Glucose, Fasting 92 mg/dL 70-100 Normal (applies to non-numeric results) [facility] ([facility] Blood Urea Nitrogen 10 mg/dL 7-18 Normal (applies to non-nume jasmin results) [facility] Creatinine For GFR 0.65 mg/dL 0.70-1.30 Below low normal [facility] ([facility] Glomerular Filtration Rate Laboratory test result Normal (applies to non- numeric results) [facility] ([facility] ) <content>Units are mL/min/1.73 m2</content>
<content></content>
<content>Chronic Kidney Disease Staging per [facility]:</content>
<content></content>
<content>Stage I & II GFR >=60 Normal to Mildly Decreased</content>
<content>Stage III GFR 30- 59 Moderately Decreased</content>
<content>Stage IV GFR 15-29 Severely Decreased</content>
<content>Stage V GFR <15 Very Little GFR Left</content>
<content>ESRD GFR <15 on SWATCH PASTER</content>
<content></content> Potassium Serum 4.2 meq/L 3.5-5.1 Normal (applies to non-numeric results) [facility] ([facility] Sodium Level 136 meq/L 136-145 Normal (applies to non-numeric res ults) [facility] ([facility] Chloride Level 101 meq/L 98-107 Normal (applies to non-numeric r esults) [facility] ([facility] Carbon Dioxide Level 29 meq/L 21-32 Normal (applies to non-num hyacinth results) [facility] ([facility] Anion Gap 6 meq/L 8-16 Below low normal [facility] ( [facility] Calcium Level 8.4 mg/dL 8.5-10.1 Below low normal [facility] ([facility] Ast/Sgot 17 U/L 7-37 Normal (applies to non-numeric resul ts) [facility] ([facility] Alt/SGPT 25 U/L 12-78 Normal (applies to non-numeric resul ts) [facility] ([facility] Alkaline Phosphatase 61 U/L 45-117 Normal (applies to non-num hyacinth results) [facility] ([facility] Bilirubin,Total 0.4 mg/dL 0.2-1.0 Normal (applies to non-numeric results) [facility] ([facility] Total Protein 7.1 GM/DL 6.4-8.2 Normal (applies to non-numeric re sults) [facility] ([facility] Albumin/Globulin Ratio 0.61 1.00-1.93 Below low normal [facility] ([facility] Albumin 2.7 GM/DL 3.2-5.2 Below low normal [facility] ( [facility] ID Date Data Source [id number] 08/12/2019 03:06:00 PM EDT [facility] ([facility] Name Value Range Interpretation Code Description Data Ava rce(s) Supporting Document(s) White Blood Count 17.1 10 4.0-10.0 Above high normal [facility] ([facility] Hematocrit 39.7 % 42.0-52.0 Below low normal [facility] ( [facility] Hemoglobin 13.0 g/dL 13.5-17.5 Below low normal [facility] ( [facility] Red Blood Count 4.20 10 4.30-6.10 Below low normal [facility] ([facility] Mean Corpuscular Volume 94.5 fl 80.0-96.0 Normal ( applies to non-numeric results) [facility] ([facility] ) Mean Corpuscular Hemoglobin 31.0 pg 27.0-33.0 Norm al (applies to non-numeric results) [facility] ([facility] ) Platelet Count, Automated 723 10 150-450 Above high normal [facility] ([facility] Mean Corpuscular HGB Conc 32.7 g/dL 32.0-36.5 Normal (applies to non-numeric results) [facility] ([facility] ) Red Cell Distribution Width 12.4 % 11.5-14.5 Norm al (applies to non-numeric results) [facility] ([facility] ) Lymph % 13.0 % 24.0-44.0 Below low normal [facility] ( [facility] Neutrophils % 78.2 % 36.0-66.0 Above high normal [facility] ([facility] [place] % 6.0 % 0.0-5.0 Above high normal [facility] ([facility] Eos % 1.3 % 0.0-3.0 Normal (applies to non-numeric resul ts) [facility] ([facility] Baso % 0.4 % 0.0-1.0 Normal (applies to non-numeric resul ts) [facility] ([facility] Immature Granulocyte % 1.1 % 0-3.0 Normal (applies to non-n umeric results) [facility] ([facility] Nucleated Red Blood Cell % 0.0 % 0-0 Normal (applies to n on-numeric results) [facility] ([facility] Neutrophils # 13.4 10 1.5-8.5 Above high normal [facility] ([facility] Eos # 0.2 10 0.0-0.5 Normal (applies to non-numeric resul ts) [facility] ([facility] Lymph # 2.2 10 1.5-5.0 Normal (applies to non-numeric resul ts) [facility] ([facility] [place] # 1.0 10 0.0-0.8 Above high normal [facility] ([facility] Baso # 0.1 10 0.0-0.2 Normal (applies to non-numeric resul ts) [facility] ([facility] ID Date Data Source [id number] 08/03/2019 06:39:00 PM EDT [facility] Name Value Range Interpretation Code Description Data Ava rce(s) Supporting Document(s) SARS CORONAVIRUS 2 RNA [facility] This lab was ordered by [facility] and reported by [facility]. ID Date Data Source [id number] 07/30/2019 06:23:00 PM EDT [facility] ([facility] Name Value Range Interpretation Code Description Data Ava rce(s) Supporting Document(s) Laboratory test finding (navigational concept) Laboratory test r esult Normal (applies to non-numeric results) [facility] RP PANEL RESULT NEGATIVE b y MULTIPLEXED NUCLEIC ACID PCR ID Date Data Source [id number] 07/30/2019 06:23:00 PM EDT [facility] ([facility] Name Value Range Interpretation Code Description Data Ava rce(s) Supporting Document(s) Lipoprotein lipase [Enzymatic activity/volume] in Serum or Plasm a 42 U/L 73-393 Below low normal [facility] ([facility] ) C reactive protein [Mass/volume] in Serum or Plasma by High sensitivity method 29.00 mg/dL 0.00-0.30 Above high normal [facility] ([facility] Lactate dehydrogenase [Enzymatic activity/volume] in Serum o r Plasma 389 U/L 87-241 Above high normal [facility] ([facility] ID Date Data Source [id number] 07/30/2019 06:23:00 PM EDT [facility] ([facility] Name Value Range Interpretation Code Description Data Ava rce(s) Supporting Document(s) Glucose, Fasting 101 mg/dL 70-100 Above high normal M [facility] ([facility] Blood Urea Nitrogen 23 mg/dL 7-18 Above high normal [facility] ([facility] Creatinine For GFR 0.82 mg/dL 0.70-1.30 Normal (applies to non -numeric results) [facility] ([facility] Glomerular Filtration Rate Laboratory test result Normal (applies to non- numeric results) [facility] ([facility] ) <content>Units are mL/min/1.73 m2</content>
<content></content>
<content>Chronic Kidney Disease Staging per NKF:</content>
<content></content>
<content>Stage I & II GFR >=60 Normal to Mildly Decreased</content>
<content>Stage III GFR 30-59 Moderately Decreased</content>
<content>Stage IV GFR 15-29 Severely Decreased</content>
<content>Stage V GFR <15 Very Little GFR Left</content>
<content>ESRD GFR <15 on SWATCH PASTER</content>
<content></content> Potassium Serum 4.1 meq/L 3.5-5.1 Normal (applies to non-numeric results) [facility] ([facility] Sodium Level 137 meq/L 136-145 Normal (applies to non-numeric res ults) [facility] ([facility] Carbon Dioxide Level 27 meq/L 21-32 Normal (applies to non-num hyacinht results) [facility] ([facility] Chloride [...] Normal (applies to non-numeric resul ts) [facility] ([facility] Bilirubin,Total 0.7 mg/dL 0.2-1.0 Normal (applies to non-numeric results) [facility] ([facility] Alkaline Phosphatase 78 U/L 45-117 Normal (applies to non-num hyacinth results) [facility] ([facility] Albumin/Globulin Ratio 0.93 1.00-1.93 Below low normal [facility] ([facility] Total Protein 7.9 GM/DL 6.4-8.2 Normal (applies to non-numeric re sults) [facility] ([facility] Albumin 3.8 GM/DL 3.2-5.2 Normal (applies to non-numeric resul ts) [facility] ([facility] ID Date Data Source [id number] 07/30/2019 06:23:00 PM EDT [facility] ([facility] Name Value Range Interpretation Code Description Data Ava rce(s) Supporting Document(s) White Blood Count 20.9 10 4.0-10.0 Above high normal [facility] ([facility] Hemoglobin 13.6 g/dL 13.5-17.5 Normal (applies to non-numeric resul ts) [facility] ([facility] Red Blood Count [...] 32.0-36.5 Normal (applies to non-numeric results) [facility] ([facility] ) Platelet Count, Automated 291 10 150-450 Normal (applies to non-numeric results) [facility] ([facility] Lymph % 2.7 % 24.0-44.0 Below low normal MED[facility] ( [facility] Neutrophils % 94.0 % 36.0-66.0 Above high normal MEDE NT ([facility] [place] % 2.6 % 0.0-5.0 Normal (applies to non-numeric resul ts) MEDENT ([facility] Baso % 0.1 % 0.0-1.0 Normal (applies to non-numeric resul ts) MED[facility] ([facility] Eos % 0.0 % 0.0-3.0 Normal (applies to non-numeric resul ts) [facility] ([facility] Immature Granulocyte % 0.6 % 0-3.0 Normal (applies to non-n umeric results) MEDENT ([facility] Neutrophils # 19.7 10 1.5-8.5 Above high normal MEDE NT ([facility] Nucleated Red Blood Cell % 0.0 % 0-0 Normal (applies to n on-numeric results) MEDENT ([facility] Eos # 0.0 10 0.0-0.5 Normal (applies to non-numeric resul ts) MEDENT ([facility] Lymph # 0.6 10 1.5-5.0 Below low normal MEDENT ( [facility] [place] # 0.5 10 0.0-0.8 Normal (applies to non-numeric resul ts) MEDENT ([facility] Baso # 0.0 10 0.0-0.2 Normal (applies to non-numeric resul ts) MEDENT ([facility] ID Date Data Source [id number] 07/30/2019 06:23:00 PM EDT [facility] Name Value Range Interpretation Code Description Data Ava rce(s) Supporting Document(s) SARS CORONAVIRUS 2 RNA [facility] This lab was ordered by [facility] and reported by [facility]. ID Date Data Source [id number] 07/30/2019 06:17:00 PM EDT MEDENT ([facility] Name Value Range Interpretation Code Description Data Ava rce(s) Supporting Document(s) Fibrin D-dimer FEU [Mass/volume] in Platelet poor plasma Lab oratory test result Normal (applies to non-numeric results) MEDENT ([facility] ID Date Data Source [id number] 07/30/2019 06:17:00 PM EDT MEDENT ([facility] Name Value Range Interpretation Code Description Data Ava rce(s) Supporting Document(s) Prothrombin Time 17.6 s 11.8-14.0 Above high normal M EDENT ([facility] Inr 1.48 Normal (applies to non-numeric resul ts) MEDENT ([facility] THERAPUTIC HUMAN INR VALUES INDICATIONS NORMAL RANGES PROPHYLAXIS/TREATMENT OF: VENOUS THROMBOSIS 2.0-3.0 PULMONARY EMBOLISM 2.0-3.0 PREVENTION OF SYSTEMIC EMBOLISM FROM: TISSUE HEART VALVES 2.0-3.0 ACUTE MYOCARDIAL INFARCTION 2.0-3.0 VALVULAR HEART DISEASE 2.0-3.0 ATRIAL FIBRILLATION 2.0-3.0 MECHANICAL VALVES(HIGH RISK) 2.5-3.5 RECURRENT MYOCARDIAL INFARCTION 2.5-3.5 Partial Thromboplastin Time 38.5 s 25.0-38.4 Above high normal MEDENT ([facility] ID Date Data Source [id number] 07/30/2019 04:02:00 AM EDT MEDENT ([facility] Name Value Range Interpretation Code Description Data Ava rce(s) Supporting Document(s) Lipoprotein lipase [Enzymatic activity/volume] in Serum or Plasm a 37 U/L 73-393 Below low normal MEDENT ([facility] ) ID Date Data Source [id number] 07/30/2019 04:02:00 AM EDT MEDENT ([facility] Name Value Range Interpretation Code Description Data Ava rce(s) Supporting Document(s) Creatinine For GFR 0.80 mg/dL 0.70-1.30 Normal (applies to non -numeric results) MEDENT ([facility] Blood Urea Nitrogen 21 mg/dL 7-18 Above high normal MEDENT ([facility] Glucose, Fasting 145 mg/dL 70-100 Above high normal M EDENT ([facility] Sodium Level 135 meq/L 136-145 Below low normal MED[facility] ([facility] Glomerular Filtration Rate Laboratory test result Normal (applies to non- numeric results) [facility] <content>Units are mL/min/1.73 m2</content>
<content></content>
<content>Chronic Kidney Disease Staging per NKF:</content>
<content></content>
<content>Stage I & II GFR >=60 Normal to Mildly Decreased</content>
<content>Stage III GFR 30-59 Moderately Decreased</content>
<content>Stage IV GFR 15-29 Severely Decreased</content>
<content>Stage V GFR <15 Very Little GFR Left</content>
<content>ESRD GFR <15 on SWATCH PASTER</content>
<content></content> Potassium Serum 4.0 meq/L 3.5-5.1 Normal (applies to non-numeric results) MEDENT ([facility] Chloride Level 102 meq/L 98-107 Normal (applies to non-numeric r esults) MEDENT ([facility] Carbon Dioxide Level 24 meq/L 21-32 Normal (applies to non-num hyacinth results) MEDENT ([facility] Anion Gap 9 meq/L 8-16 Normal (applies to non-numeric resul ts) [facility] ([facility] Calcium Level 9.6 mg/dL 8.5-10.1 Normal (applies to non-numeric re sults) MED[facility] ([facility] Ast/Sgot 20 U/L 7-37 Normal (applies to non-numeric resul ts) MEDENT ([facility] Alkaline Phosphatase 77 U/L 45-117 Normal (applies to non-num hyacinth results) MEDENT ([facility] Alt/SGPT 16 U/L 12-78 Normal (applies to non-numeric resul ts) MEDENT ([facility] Total Protein 7.9 GM/DL 6.4-8.2 Normal (applies to non-numeric re sults) MEDENT ([facility] Bilirubin,Total 0.7 mg/dL 0.2-1.0 Normal (applies to non-numeric results) MED[facility] ([facility] Albumin/Globulin Ratio 0.93 1.00-1.93 Below low normal MEDENT ([facility] Albumin 3.8 GM/DL 3.2-5.2 Normal (applies to non-numeric resul ts) MED[facility] ([facility] ID Date Data Source [id number] 07/30/2019 04:02:00 AM EDT MEDENT ([facility] Name Value Range Interpretation Code Description Data Ava rce(s) Supporting Document(s) White Blood Count 19.5 10 4.0-10.0 Above high normal MEDENT ([facility] Red Blood Count 4.17 10 4.30-6.10 Below low normal MED ENT ([facility] Hematocrit 38.7 % 42.0-52.0 Below low normal MEDENT ( [facility] Hemoglobin 13.2 g/dL 13.5-17.5 Below low normal MEDENT ( [facility] Mean Corpuscular Volume 92.8 fl 80.0-96.0 Normal ( applies to non-numeric results) MED[facility] ([facility] ) Mean Corpuscular HGB Conc 34.1 g/dL 32.0-36.5 Normal (applies to non-numeric results) MEDENT ([facility] ) Mean Corpuscular Hemoglobin 31.7 pg 27.0-33.0 Norm al (applies to non-numeric results) MEDENT ([facility] ) Platelet Count, Automated 278 10 150-450 Normal (applies to non-numeric results) MEDENT ([facility] ) Neutrophils % 94.7 % 36.0-66.0 Above high normal MEDE NT ([facility] Red Cell Distribution Width 11.8 % 11.5-14.5 Norm al (applies to non-numeric results) MED[facility] ([facility] ) Lymph % 2.1 % 24.0-44.0 Below low normal MEDENT ( [facility] [place] % 2.6 % 0.0-5.0 Normal (applies to non-numeric resul ts) MED[facility] ([facility] Eos % 0.0 % 0.0-3.0 Normal (applies to non-numeric resul ts) MED[facility] ([facility] Baso % 0.1 % 0.0-1.0 Normal (applies to non-numeric resul ts) MED[facility] ([facility] Nucleated Red Blood Cell % 0.0 % 0-0 Normal (applies to n on-numeric results) MED[facility] ([facility] Immature Granulocyte % 0.5 % 0-3.0 Normal (applies to non-n umeric results) MED[facility] ([facility] Neutrophils # 18.5 10 1.5-8.5 Above high normal MEDE NT ([facility] [place] # 0.5 10 0.0-0.8 Normal (applies to non-numeric resul ts) MED[facility] ([facility] Lymph # 0.4 10 1.5-5.0 Below low normal MEDENT ( [facility] Eos # 0.0 10 0.0-0.5 Normal (applies to non-numeric resul ts) [facility] ([facility] Baso # 0.0 10 0.0-0.2 Normal (applies to non-numeric resul ts) [facility] ([facility] ID Date Data Source [id number] 06/18/2019 02:00:00 PM EST [facility] Name Value Range Interpretation Code Description Data Ava rce(s) Supporting Document(s) Follow Up [facility] YAPCEa6jMiWQLeLmPNGhNqsLYJpsNDaiOLNbW8K0ITyeGq9UVEzzdjBwEAIjXv4+ZEYdFK1ows2xDNSq gMy 3jORNcLndhE0GuWYMzu44HGFAxDPqMUmWoVzCeHeO8UJKrIBGmWBW2UbUdSxbdAQ4jBHF5VBMxAAizYU YfEXQnPLV9HAO9XZ4nAXwnHHluSl9XZI5cv4FyXEZkKRSeVhcGJFurRDmbNNJtTEZtEFTqP802vlBhVY 2PrTXfMLz9BWVlRqI5XKGzBbM3RWWmCrCfLgSmTGYg O5Cwt807qdOanaQ9EM7NQ8HaVEZ9BVk1K7gsEuXfFBBfDUUoJZ6wUhB3YOKlSw5RgDdfNPVtNLDyKw6F cFs9CWJ4WBRaPy2+Pj4+Uy7gxxOhGxzTHCVbUZ5djr07AU3WfRDvEU2ZRVqoO16aRDrcRa96VJlwGEUi QjYqPAw9Hc9nLwWxb1LtF6PrEPr7A2dQHlyeH1IrDM ynHE0pEUC7BHSuWq7+Ze4kSDOmYM12EARtSZFCH2FezkQxefNuVHf8HWGsXt0+Yq4oosEfUdfHIDCfZF 1kdc64PE2RWU5xsVvgAwhjJZYvR52qpHAwM3tjNmVxN4RoxYnuHJAeAL2eW4SlGSrgOLJoCL3cdoHbyO 4RbPj0JFGjGo5FoLR9RASyN25vPPPhPIDQGFPdk9Uh WU5Pj0kxklMuTTPwEJ0LMRZbJ7NBI1TjC0ndfZkaLLAcYG9INDohbLPfADg3TK2LqYCpMHWuA54bkH7t BF55XBw+FeC1uhTkqN9IkItze7GLnP+52dvrEYR4CJgm6W8WZ6C3BXod9pGGixKMHR/u3d0z8fr7iKWF IXI069PzaHh2Hkcn2j9WiY6NL5/q7m/92g040t4wV0 [file] SeK4Kp9kPjSBXzUpBKGnkoVSXbu9Qr0JJxzqH/PXNdHsbb77KIeQAsniMiZ+porcelain enamel repairer/f86748D3fjK089Va [file] L++Ymdtq68EFIU9Uqycjpz04CGBGPI7PpfXXrhXcEwp3hbcnBQs0kOmgDHvJtwKaneuL8DgBF+Juan Daniel/6l [file] evp and chief operating officer/0ICjpu8JojYubOskqj6y68Jue5JMDlolDIkFvZD [file] boxgifJy++ITUpr9yTw2olQOL/GROUND SCHOOL INSTRUCTOR/pQ4pgzexvrBiH [file] iyGh/YnR34r0SC5OwS2tlFNjbCMzRuWdexNq+Xwxco7EYbTqWd9Of/emergency veterinarian/TwFu/hsL1o6XkonqxtTReo [file] iu2ATyc6FTc/86+ICT9U6OMjlaQrjsk+OyGBnSJsJ9w+Word Processing Supervisor+hoq1zNJHMB4d/SU9ugwydGW0pgemdH1vb q1put0iXRYVOdphslDKj31k1ljg4kRXdRpNnQjTdMil2Fddxg/JIMbjARZibhm8C9Wt2Sn2PVd5eo5n8 J7ZxK0YlWsRMDlmZse0Rv35b6Eikk+0deXoa1R/HqI /38uOuKZq3eT7/IdU1Yk4jfHak+6u5wqpjaeI2E/LvBMLZp3dhVJ451WhEFZzm1nZKzK34tKKsUxev8Z igvbskabkISugiw2lVfk8QosHXoWWhD+Cu6EHN6MIj9XJygSDwLKuHBvDd7P3cjtUQWoexF+Pl5XS3Jw ktjeFfuOeYePVv+K9lTUmQOB/p5PDWWRjx3gdQFKxh 6jzO+YFxybzAvJCeSV1wSYDiCwb+Qo4Gtgu9h8bLCKvGU2tQ3dN2jLzo4Mma0fuxjk3/Cyfytcrp/h6i WdIdFqwb6myg+EwSJsijunvPwpaH4P64pnQIoStuSBaJUl4wm8vN+3xmlTPALoJLaqo3AAM5Asvh8Kfg SoRCjjcmypx8uveooJbgLQODO8Co6slwst/Court+0Ix [file] 6KZMERSkVujbJrY6zY4E2bvuVLv4ct9pgQRkri5Rl4sKIm0PXlPjgfqqS6rchAXKtqe7OyMgLLUFY+patternmaker hand [file] evp and chief operating officer+xk7jTuJj+Ss6yCAq0NnCyGOhqwdHByIUICS/psp [file] LcyvGmrY2iklKI+LOhFgCeT50If8W/GROUND SCHOOL INSTRUCTOR/MQgzMMRVy [file] biofuels engineering manager/1na76YHbwwb2XhGjmKt6830p6t+qdz5I73pd3Ju4McbyW2rHm6eXcp/EUwJ8OKUt8B9H0Pz6cvPB [file] CKgR5WKch4ISk/WOhPC4iWvA31uu5k8UsLEaIf+Tavon iAcGd1xmHhGEstjTUaoIVIyCbT/aedQPvrCx2RdXr05SZd+1PFuKohUpfG/BjVMhVd8sM38PPxgmGfWR M6UGp5QAjLKnD327O+VYLodgbPOEcaaCb5qjwp6MtKD0/hoQ8qay5C55uiYTqV58JFkNI8fJdZ3FlfGl IM4ZpIRGDY5vI13uIOZM+nwMJ2XnRl/FWyoXCLXk35 jkvbG03eNqdZ3qvp6U3Gs7dlxy6Wt5reZ/VVpS88x5MnXUT5+++ZCwpKKP1y11ju1g8OO7opMZ0MNILC assembler metal furniture+dxYbR+EPtMY+/9aS4tt8tRbXAFcj8wD6xqIimCzQIc0Ci1atsiO9C6v4JzmmXz0lbv9dhPqqL4Y/ [file] K50vExsShZUC7U+VB4biXa/ltv+tGCXbnvYtDwMSy20ycS+refinery operator helper cracking unit+fnCc1tD1HkYUddk/ghishEtkwy5en [file] X/qC4BY4xHBf7LIm+hwcbLUiOki9lc8Sb+ezjFZomy7D6wiwky/KjxwOkj1VsL0m55w9nJHIJy8Q+HAND CLIPPER [file] Rp052hjwX677/Vodcja2GAxTFtVFVcbW4ibOHJ+professor of pathology CM3oK2ldg5mA6Z6Oq1JoX58f56sEcIMr7Xy/felicity//aVBT3oEZnTsXAwa5gpsCer03qdS+rjhDiZE6uD2P [file] +FC6ayhw+zunCYdwHL0ki8+rzaF7ucuo9xMMK+x+dining car server [file] vpHrxiRMSVHIziP0G92EqgFtbQAXhCtYeN//eN+Jose Manuel [file] j[facility]If[facility]+PF/IdYdr4FDB1ru6duAwnEGILZoRi7SN5EyDd+sW5OR0HANoFQpf/8lNSPbOnToCew2F532V [file] CBH9bp7nRKNXDAGTLK12HALFMUNcGYT+xgaTeXLCmF mG88ihkzW/DU1qEFk7ME+x4XzUs2r/lEbG0G2XuBfLtZ2jjDr9c+k+Z/qlgVPk8c3jAM9LgprFb4BdWS 5IE0YhK48dN/E0+SbldMYfQ4MSvytyNnW+jLPfnJBBiWVNZFvnkI7uBWE6hV33OWp634DqmaUwLlfafC xGhc7pSx9p0Zpcq4WB7CRKNEnXQo1ielE8RivvUvdl pSqFi2i9lL4ZzkJVhUroBLcRirIq+vplmpBKMNtqo+D9++ePtvKmEQA3S4i650MmZ04gv6sa9Ssk/DET 6f2heNpMSdArCOBifyncDP3xBR4w/7tuSjP+65mTQnF482G/bCuckv3+XKbvQ/WiS3fXV0P7D4Za+ZWk Ynl1N2do7P9VQat4Z1F2zK49khqk7f5j83VudLxHY+ evPe5AZE8Zafs+K1t24JocZTOr2v1oPmOwKBp/isvugW8YqpAX1J3h0Hq5558/Flzbgt/IqJWMYQkacE 1+QCoT2Xqu22GnifWa/mSHL3W0MUUoDdtn7ejh8dJ6lt3IHiWn5jzXKQEnwsLKH1Ql/1+7sH1nF+Nn3S /HcgXK5hUlfGBPbl8H2iVJAd1Xly/fFcZcpPrz6Plu YLoo9n3t4ddCJJqxh5Ltpos/nCW3f71tX3AGQrjud8oFvthZnQ97fCaPwtgPvGcfujJ/vsdMXnXqtEPs xHH7fpwemnKe95//lBGgyUA4fxY48zAVsPEs7tZJLgUxlA41I/KqDYKn3NeKIbHKKl/LO8+César+JRZYo cuTVyOAhOxtVNqoRx89kcwnvsUGIc+4P0pUcmlzjlj P9VLiVd2WKN5QPFxxnsUWR0t+BA+/5MUkAwTJua7oVZTbZUhrO2/rM9df7NBqBCaSoz/kUGBKbjg4MGt n4NV2YkXgnHIJ2fy1+Oqtck4ButKaYun3m85lCxVX9jEedxTdVo8f1E4QMaymraN1IFM5yWPoHjJJUiK T/WxNw7yClwsC3+kVuk4Tv0qf6UY280vgkWkedwxgk kbj5HMMT6OGOmJfAcp6RQt7leWeqyVN0T4L34Y+D+tjkbeTzEWFNJOtdYzln4p0c7fVBL5G3D5bN3d36 1eftkPMBnd4cRqKpoWaOxfM4ZlEMRvlIJGGnNUh0XZx5xoO5H4EUJy5huDt/5u/3Pf5tJkeT//H8X6Ug lY94dbHeh+/ERMIEHolHdBolQdMqnpkUi5VGwpp0DE I4kd5aZ0Wo901buIY+eUlXm7kGGSR63PXOzegN3avHAmWUbQ16o/dyuZUXfewyjdYXN7hTqwvIw+ZFln /sAnNkN9VaHLjRaYUGn6ioyRZGJGM6sFAm4f8HumMgYaLp0ufE9QZmZFCK62/VopTym7U/gF+eDhP62B 0czS+gL8dsU2sCbqk5NlS+qNCgl7F3RDe9fj6k7ZXg jW8cUqOn/5+D248DV5ks6djieb+K0c2BVP2mvkuZ3J7jQahOlybfPr8B+5X9IcidMWp2YxN/oqLNIKcl 0RcXF83XMLH2jnnjXIlA8Av2/shiraz+FL1tB2HbgGY8QQoHngUB+TOlkvu06tjiZ7MOD1zX8Fr9PYlY77MB [file] h1BK3KMBSCE1H= Procedure Vital Signs ID Date Data Source UNK Name Value Range Interpretation Code Description Data Source(s) Oxygen saturation in Arterial blood by Pulse oximetry 99 % 99 % SARAHI ([facility] Body mass index (BMI) [Ratio] 23.4 kg/m2 23.4 k g/m2 SARAHI ([facility] [place] body weight 190 [lb_av] 190 [lb_av] RAHAT Pereira ([facility] Body weight 182.00 [lb_av] 182.00 [lb_av] RAHAT Pereira ([facility] Body height 74 [in_i] 74 [in_i] [facility] ([facility] 6'2" Respiratory rate [...] k g/m2 MEDENT ([facility] [place] body weight 190 [lb_av] 190 [lb_av] MEDEN T ([facility] Body weight 191.00 [lb_av] 191.00 [lb_av] MEDEN T ([facility] Body height 74 [in_i] 74 [in_i] MEDENT ([facility] 6'2" Respiratory rate [...] k g/m2 MED[facility] ([facility] [place] body weight 190 [lb_av] 190 [lb_av] MEDEN T ([facility] Body weight 186.00 [lb_av] 186.00 [lb_av] MEDEN T ([facility] Body height 74 [in_i] 74 [in_i] MEDENT ([facility] 6'2" Respiratory rate 12 [...] k g/m2 MED[facility] ([facility] [place] body weight 190 [lb_av] 190 [lb_av] MEDEN T ([facility] Body weight 167.00 [lb_av] 167.00 [lb_av] MEDEN T ([facility] Body height 74 [in_i] 74 [in_i] MEDENT ([facility] 6'2" Respiratory rate 14 [...] blood pressure 62 mm[Hg] 62 mm[Hg] eCW1 ([facility]) Systolic blood pressure 112 mm[Hg] 112 mm[Hg] e CW1 ([facility]) Body temperature 98.3 [degF] 98.3 [degF] eCW1 ( [facility]) Respiratory rate 18 /min 18 /min eCW1 ([facility]) Heart rate 132 /min 132 /min eCW1 ([facility]) Body mass index (BMI) [Ratio] 21.44 kg/m2 21.44 kg/m2 eCW1 ([facility]) Body height 74 [in_us] 74 [in_us] eCW1 ([facility]) Body weight Measured 167 [lb_av] 167 [lb_av] eC W1 ([facility]) Oxygen saturation in Arterial blood by Pulse oximetry 95 % 95 % MEDENT ([facility] Body mass index (BMI) [Ratio] 21.1 kg/m2 21.1 k g/m2 MED[facility] ([facility] Body weight 164.00 [lb_av] 164.00 [lb_av] MEDEN T ([facility] Body height 74 [in_i] 74 [in_i] MEDENT ([facility] 6'2" Respiratory rate 16 [...]
[2020-06-06] MEDS ORDERED: NS 1,000 ML IV ONE ×2 (16:00→18:15)
[2020-06-06 16:25] LABS: ALBUMIN 5.3 GM/DL (3.2-5.2); BILIRUBIN,DIRECT 0.3 MG/DL (0.0-0.2); BILIRUBIN,TOTAL 1.4 MG/DL (0.2-1.0); MAGNESIUM LEVEL 1.4 MG/DL (1.8-2.4); TOTAL PROTEIN 8.6 GM/DL (6.4-8.2)
[2020-06-06] MEDS ORDERED: HALOPERIDOL 5MG/ML VIAL (J1630 PER 1) IV STA (16:32)
[2020-06-06] MEDS ORDERED: KCL 10MEQ/100ML SWI (KRUN) 10 MEQ in IV 1 EA IV ONE (16:45)
--- NOTE | 2020-06-06 16:54 | REP ---
INDICATION: abdominal pain. COMPARISON: Comparison chest x-ray 10 November 2015.. TECHNIQUE: Supine and erect views of the abdomen, three views included. FINDINGS: There is no evidence of infiltrate in the lung bases or free subdiaphragmatic air. The bowel gas pattern normal. Air and stool is seen in nondistended colon. No small or large bowel dilation is seen. Psoas margins and flank stripes are intact. No mass, organomegaly, or pathologic calcification is seen. IMPRESSION: Negative abdominal views. <Electronically signed by Jamey Delgado > 06/06/20 [id number]
[2020-06-06] MEDS ORDERED: MAG SULF 1GM/100ML (MAG RUN) 1 GM in IV 1 EA IV ONE (18:15)
[2020-06-06] MEDS ORDERED: MAGNESIUM OXIDE 400MG TAB (MAG-OX) PO ONE (18:15)
[2020-06-06] MEDS ORDERED: POTASSIUM CHLORIDE 10 MEQ SR TABLET PO ONE (18:15)
[2020-06-06 20:19] LABS: BASO % 0.1 % (0.0-1.0); EOS % 0.1 % (0.0-3.0); HEMATOCRIT 37.9 % (42.0-52.0); LYMPH # 1.1 10^3/uL (1.5-5.0); LYMPH % 6.7 % (24.0-44.0); MEAN CORPUSCULAR HEMOGLOBIN 31.8 pg (27.0-33.0); MEAN CORPUSCULAR HGB CONC 33.5 g/dl (32.0-36.5); MONO # 1.2 10^3/uL (0.0-0.8); MONO % 7.5 % (2.0-8.0); NEUTROPHILS # 13.6 10^3/uL (1.5-8.5); NEUTROPHILS % 85.2 % (36.0-66.0); RED BLOOD COUNT 3.99 10^6/uL (4.30-6.10); WHITE BLOOD COUNT 15.9 10^3/uL (4.0-10.0)
[2020-06-06 20:23] LABS: HEMOGLOBIN 12.7 g/dl (13.5-17.5)
[2020-06-06 20:24] LABS: PLATELET COUNT, AUTOMATED 236 10^3/uL (150-450)
[2020-06-06 20:50] LABS: BLOOD UREA NITROGEN 33 MG/DL (7-18); CALCIUM LEVEL 8.8 MG/DL (8.5-10.1); CARBON DIOXIDE LEVEL 27 MEQ/L (21-32); CHLORIDE LEVEL 105 MEQ/L (98-107); CREATININE FOR GFR 1.21 MG/DL (0.70-1.30); GLOMERULAR FILTRATION RATE > 60.0 (>60); GLUCOSE, FASTING 107 MG/DL (70-100); MAGNESIUM LEVEL 2.3 MG/DL (1.8-2.4); POTASSIUM SERUM 3.7 MEQ/L (3.5-5.1); SODIUM LEVEL 141 MEQ/L (136-145)
[2020-06-06 21:43] VITALS: BP 134/78
--- NOTE | 2020-06-07 20:40 | ECGEPIP ---
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
== END 2020-06-06 22:01 | disposition home or self-care (01) ==
LOC: M ED 14:54
DX: F12.188 Cannabis abuse with other cannabis-induced disorder (principal); R10.9 Unspecified abdominal pain; R11.2 Nausea with vomiting, unspecified; R00.0 Tachycardia, unspecified; K21.9 Gastro-esophageal reflux disease without esophagitis; F41.9 Anxiety disorder, unspecified; Z88.1 Allergy status to other antibiotic agents; Z79.899 Other long term (current) drug therapy
CPT/HCPCS: 74019; 80047; 80048; 80076; 82550; 83690; 83735; 85025; 93005; 96361; 96365; 96366; 96367; 96375; 99285; J1630; J3475

== ENCOUNTER → 2020-06-08 | Outpatient (CLI) | payer BC ==
[~2020-06-08] MED LIST changes: +HYDR50TA70; +ZOLO100T
[2020-06-08 20:05] LABS: HEMATOCRIT 43.5 % (42.0-52.0); HEMOGLOBIN 14.7 g/dl (13.5-17.5); MEAN CORPUSCULAR HEMOGLOBIN 31.6 pg (27.0-33.0); MEAN CORPUSCULAR HGB CONC 33.8 g/dl (32.0-36.5); MEAN CORPUSCULAR VOLUME 93.5 fl (80.0-96.0); PLATELET COUNT, AUTOMATED 299 10^3/uL (150-450); RED BLOOD COUNT 4.65 10^6/uL (4.30-6.10); WHITE BLOOD COUNT 14.9 10^3/uL (4.0-10.0)
[2020-06-08 20:14] LABS: ALBUMIN 4.8 GM/DL (3.2-5.2); ALT/SGPT 25 U/L (12-78); BILIRUBIN,TOTAL 1.5 MG/DL (0.2-1.0); BLOOD UREA NITROGEN 17 MG/DL (7-18); CALCIUM LEVEL 10.2 MG/DL (8.5-10.1); CARBON DIOXIDE LEVEL 22 MEQ/L (21-32); CHLORIDE LEVEL 102 MEQ/L (98-107); GLOMERULAR FILTRATION RATE > 60.0 (>60); GLUCOSE, FASTING 83 MG/DL (70-100); POTASSIUM SERUM 3.6 MEQ/L (3.5-5.1); SODIUM LEVEL 136 MEQ/L (136-145); TOTAL PROTEIN 7.7 GM/DL (6.4-8.2)
== END ==
LOC: M WUC 15:33
PROVIDERS: ATTEND Internal Medicine
DX: R19.7 Diarrhea, unspecified (principal); E86.0 Dehydration; D72.821 Monocytosis (symptomatic)

== ENCOUNTER → 2020-06-17 | Outpatient (CLI) | payer BC ==
[2020-06-17 13:38] LABS: BASO # 0.1 10^3/uL (0.0-0.2); BASO % 0.8 % (0.0-1.0); EOS # 0.1 10^3/uL (0.0-0.5); EOS % 1.1 % (0.0-3.0); HEMATOCRIT 39.6 % (42.0-52.0); HEMOGLOBIN 12.8 g/dl (13.5-17.5); LYMPH # 1.7 10^3/uL (1.5-5.0); LYMPH % 24.9 % (24.0-44.0); MEAN CORPUSCULAR HEMOGLOBIN 31.9 pg (27.0-33.0); MEAN CORPUSCULAR HGB CONC 32.3 g/dl (32.0-36.5); MEAN CORPUSCULAR VOLUME 98.8 fl (80.0-96.0); MONO # 0.5 10^3/uL (0.0-0.8); NEUTROPHILS # 4.3 10^3/uL (1.5-8.5); NEUTROPHILS % 64.6 % (36.0-66.0); PLATELET COUNT, AUTOMATED 245 10^3/uL (150-450); RED BLOOD COUNT 4.01 10^6/uL (4.30-6.10); WHITE BLOOD COUNT 6.6 10^3/uL (4.0-10.0)
[2020-06-17 14:19] LABS: ALBUMIN 4.5 GM/DL (3.2-5.2); ALT/SGPT 49 U/L (12-78); BILIRUBIN,TOTAL 0.2 MG/DL (0.2-1.0); BLOOD UREA NITROGEN 13 MG/DL (7-18); CALCIUM LEVEL 9.3 MG/DL (8.5-10.1); CARBON DIOXIDE LEVEL 32 MEQ/L (21-32); CHLORIDE LEVEL 105 MEQ/L (98-107); CREATININE FOR GFR 0.74 MG/DL (0.70-1.30); FREE T4 0.92 NG/DL (0.76-1.46); GLOMERULAR FILTRATION RATE > 60.0 (>60); GLUCOSE, FASTING 89 MG/DL (70-100); LIPASE 165 U/L (73-393); POTASSIUM SERUM 4.8 MEQ/L (3.5-5.1); SODIUM LEVEL 140 MEQ/L (136-145); TOTAL PROTEIN 6.7 GM/DL (6.4-8.2)
[2020-06-17 14:20] LABS: ERYTHROCYTE SEDIMENTATION RATE 4 mm/hr (0-15)
== END ==
LOC: M WUC 11:16
PROVIDERS: ATTEND Internal Medicine Infectious Disease
DX: D72.829 Elevated white blood cell count, unspecified (principal); F41.1 Generalized anxiety disorder; R74.8 Abnormal levels of other serum enzymes

== ENCOUNTER 2020-07-05 10:31 | Observation (INO) | payer BC ==
[~2020-07-05] VITALS: Ht 188 cm; Wt 80.0 kg
[~2020-07-05 10:31] MED LIST changes: -HYDR50TA70; +HYDR50TA70 PO; -ZOLO100T
[2020-07-05] MEDS ORDERED: ONDANSETRON 4MG/2ML VIAL IV ONE ×2 (11:25→14:35)
[2020-07-05] MEDS ORDERED: NS 1,000 ML IV ONE ×2 (11:25→13:30)
[2020-07-05 11:51] LABS: BASO # 0.1 10^3/uL (0.0-0.2); BASO % 0.2 % (0.0-1.0); EOS % 0.1 % (0.0-3.0); HEMATOCRIT 38.2 % (42.0-52.0); HEMOGLOBIN 13.3 g/dl (13.5-17.5); LYMPH # 1.3 10^3/uL (1.5-5.0); LYMPH % 6.4 % (24.0-44.0); MEAN CORPUSCULAR HGB CONC 34.8 g/dl (32.0-36.5); MEAN CORPUSCULAR VOLUME 91.8 fl (80.0-96.0); MONO # 1.3 10^3/uL (0.0-0.8); MONO % 6.5 % (2.0-8.0); NEUTROPHILS # 17.7 10^3/uL (1.5-8.5); NEUTROPHILS % 86.2 % (36.0-66.0); PLATELET COUNT, AUTOMATED 242 10^3/uL (150-450); RED BLOOD COUNT 4.16 10^6/uL (4.30-6.10); WHITE BLOOD COUNT 20.6 10^3/uL (4.0-10.0)
[2020-07-05] MEDS ORDERED: POTASSIUM CHLORIDE 10 MEQ SR TABLET PO ONE (12:00)
[2020-07-05 12:16] LABS: ALBUMIN 3.9 GM/DL (3.2-5.2); ALT/SGPT 19 U/L (12-78); BILIRUBIN,DIRECT 0.2 MG/DL (0.0-0.2); BILIRUBIN,TOTAL 0.8 MG/DL (0.2-1.0); LIPASE 48 U/L (73-393)
[2020-07-05 12:19] LABS: MONO SCRN NEGATIVE (NEGATIVE)
[2020-07-05 12:26] LABS: RSV AMPLIFICATION NEGATIVE (NEGATIVE)
--- NOTE | 2020-07-05 12:54 | REP ---
INDICATION: fever COMPARISON: 08/25/2019 TECHNIQUE: Portable AP view of the chest FINDINGS: The mediastinum and cardiac silhouette are stable and within normal limits for portable technique. The lung he are clear without acute consolidation, effusion, or pneumothorax. Skeletal structures are intact. IMPRESSION: No acute cardiopulmonary process appreciated. <Electronically signed by Michael Cloud > 07/05/20 [id number]
[2020-07-05] MEDS ORDERED: KETOROLAC 30 MG/ML 1ML VIAL IV ONE (13:25)
[2020-07-05] MEDS ORDERED: AMPICILLIN SOD/SULBACTAM SOD 3 GM in D5W MINI-BAG PLUS 100 ML IV ONE (13:30)
[2020-07-05] MEDS ORDERED: ISOVUE-370 76% 100ML VIAL As Ordered ONE (13:31)
--- NOTE | 2020-07-05 13:50 | REP ---
INDICATION: tosillar abcess. COMPARISON: None. TECHNIQUE: Axial contrast-enhanced images were obtained from the thoracic inlet to the skull base with coronal and sagittal reformations using 100 cc Isovue 370 intravenous contrast material. Maximal intensity projection and multiplanar re-formation images along with 3-D rendered imaging of the arterial vasculature. This CT examination was performed using the following dose reduction techniques: Automated exposure control, adjustment of mA and/or kv according to the patient's size, and the use of iterative reconstruction technique. FINDINGS: There adenoid and tonsillar inflammatory enlargement with significant asymmetric right tonsillar involvement containing a central phlegmon/forming abscess measuring 2.3 cm diameter causing mass effect and mild contralateral deviation on the oropharynx. Reactive cervical adenopathy noted bilaterally (right greater than left). Remainder of the examination is essentially normal. IMPRESSION: Oropharyngeal infectious/inflammatory process with forming right tonsillar abscess. <Electronically signed by Michael Cloud > 07/05/20 [id number]
[2020-07-05] MEDS ORDERED: MORPHINE 4 MG/ML 1ML VIAL/SYRINGE (J2270) IV ONE ×2 (14:35→14:40)
[2020-07-05] MEDS ORDERED: LIDOCAINE 1% MDV 20ML VIAL SC ONE (15:10)
[2020-07-05] MEDS ORDERED: LIDOCAINE W/EPINEPHRINE 1% 20ML VIAL As Ordered ONE (15:17)
[2020-07-05] MEDS ORDERED: LIDOCAINE W/EPINEPHRINE 1% 20ML VIAL SC ONE (15:20)
[2020-07-05] MEDS ORDERED: DICY20TA11 PO (16:02)
[2020-07-05] MEDS ORDERED: SUCR1TA PO (16:02)
[2020-07-05] MEDS ORDERED: ACETAMINOPHEN TAB 650MG DOSE (2X325MG) PO PRN (16:10)
[2020-07-05] MEDS ORDERED: hydrOXYzine 50 MG TAB PO PRN (16:30)
[2020-07-05] MEDS ORDERED: DICYCLOMINE 10 MG CAP PO PRN (16:30)
[2020-07-05] MEDS ORDERED: SUCRALFATE 1 GM TAB PO PRN (16:30)
--- NOTE | 2020-07-05 16:34 | HPEPDOC ---
[facility] Medical History & Physical Date of Admission Jul 05, 2020 Date of Service: Jul 05, 2020 History and Physical Chief complaint: Who presented to the emergency room with complaints of throat pain History of present illness: Patient is a 25-year-old male who presented to the emergency room with complaints of throat pain for the last 5 days. Patient denies any fevers or chills but does report some difficulty with swallowing that prompted him to come to the emergency room for further evaluation. In the emergency room, patient had imaging completed that revealed a right-sided developing peritonsillar abscess. ENT was called to evaluate patient in the emergency room, who have performed at bedside drainage. Patient reports that he feels significantly better after the drainage. They report that her pain and swelling has improved and reports that it feels a little easier to swallow. Patient was seen post drainage. Currently he denies any chest pain or palpit ations. Reports a mild nonproductive cough. Reports nausea that has been a chronic problem for him. Denies any vomiting, abdominal pain, constipation, diarrhea, or discomfort with urination. Patient denies any changes in his weight and does report that his appetite was fairly normal recently. Past Medical History: Depression / Anxiety Chronic nausea s/p Chronic Leukocytosis Hx of PNA (07/2019) GERD / Hiatal Hernia Past Surgical History: EGD / Colonoscopy Allergies: See below Medications: See below Family History: - Father with history of melanoma Social History: - Patient reports that he sleeps for the last couple of years. 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 Review of Systems: 10 point review of systems complete, all negative otherwise stated in HPI Physical exam: - Vitals: BP [137/84], HR [72], RR [18], Sat [99%RA], Temp [97.2F] - General: Sitting up in bed, No acute distress, Speaking in full sentences, AAOx3 - HEENT: PERRLA, R tonsillar wall with incision noted - CVS: RRR, +S1S2 - Lungs: Fair air entry bilaterally, No appreciable wheezing / rales / rhonchi - Abdomen: Soft, Non-distended, Non-tender - Extremities: No lower extremity edema, No calf tenderness - Neuro: No focal motor or sensory deficit - Skin: No visible rashes Labs: See below Imaging: CXR 07/05: No acute cardiopulmonary process appreciated. CT Neck 07/05: Oropharyngeal infectious/inflammatory process with forming right tonsillar abscess. EKG: See below Assessment and Plan: Throat pain - likely 2/2 R tonsillar abscess; s/p Drainage (07/05/2020 in the ER with Dr. Cui) - Patient presented to the ER with throat pain 5 days; associated with difficulty swallowing - s/p I&D in the ER - Patient reports improvement of his symptoms - Leukocytosis noted; will trend - Blood cultures 07/05: Pending - Imaging noted above - Will c/w Unasyn and start Hydrocortisone - Case discussed with Dr. Cui; will continue with IV antibiotics and hydrocortisone for now - Will place on med/surg with continuous pulse oximetry Depression / Anxiety - c/w Sertraline and Hydroxyzine ADHD - c/w Atomoxetine Chronic nausea - Patient reported that he has had a workup with an EGD and colonoscopy in October 2019; reported normal - c/w Zofran s/p Chronic Leukocytosis - Patient has recently seen Dr. Cochran of infectious disease for a workup of chronic leukocytosis - However, on his initial encounter, his WBC and CRP were normal Hx of PNA (07/2019) GERD / Hiatal Hernia - c/w Carafate and Omeprazole DVT prophylaxis - Will start TEDs/Sequentials and Lovenox Vital Signs Vital Signs Date Time Temp Pulse Resp B/P (MAP) Pulse Ox O2 Delivery O2 Flow Rate FiO2 07/05/20 14:43 24 96 Room Air 07/05/20 13:45 152/90 (110) 07/05/20 13:25 97.2 72 Laboratory Data Labs 24H Laboratory Tests 2 07/05/20 11:41: Immature Granulocyte % (Auto) 0.6, Neutrophils (%) (Auto) 86.2H, Lymphocytes (%) (Auto) 6.4L, Monocytes (%) (Auto) 6.5, Eosinophils (%) (Auto) 0.1, Basophils (%) (Auto) 0.2, Neutrophils # (Auto) 17.7H, Lymphocytes # (Auto) 1.3L, Monocytes # (Auto) 1.3H, Eosinophils # (Auto) 0.0, Basophils # (Auto) 0.1, Nucleated Red Blood Cells % (auto) 0.0, Total Bilirubin 0.8, Direct Bilirubin 0.2, Aspartate Amino Transf (AST/SGOT) 11, Alanine Aminotransferase (ALT/SGPT) 19, Alkaline Phosphatase 90, C-Reactive Protein, Quantitative 13.90H, Total Protein 7.0, Albumin 3.9, Albumin/Globulin Ratio 1.3, Lipase 48L, Coronavirus (COVID-19)(PCR) NEGATIVE, Monoscreen NEGATIVE, Influenza Type A (RT-PCR) NEGATIVE, Influenza Type B (RT-PCR) NEGATIVE, Respiratory Syncytial Virus (PCR) NEGATIVE 07/05/20 11:43: POC Glucose (Misc Panel) 185H, POC Sodium (Misc Panel) 141, POC Potassium (Misc Panel) 3.3L, POC Chloride (Misc Panel) 107, POC Total CO2 (Misc Panel) 21.0L, POC Blood Urea Nitrogen (Misc Panel 10, POC Ionized Calcium (Misc Panel) 4.4L, POC Creatinine (Misc Panel) 0.5L, POC Hematocrit (Misc Panel) 40.0 07/05/20 14:25: Urine Color YELLOW, Urine Appearance CLEAR, Urine pH 9.0, Urine Specific [place] 1.033, Urine Protein 1+H, Urine Glucose (UA) NEGATIVE, Urine Ketones 1+H, Urine Blood NEGATIVE, Urine Nitrite NEGATIVE, Urine Bilirubin NEGATIVE, Urine Urobilinogen 0.2, Urine Leukocyte Esterase NEGATIVE, Urine WBC (Auto) 0, Urine RBC (Auto) 1, Urine Hyaline Casts (Auto) 0, Urine Bacteria (Auto) NEGATIVE, Urine Squamous Epithelial Cells 0, Urine Mucus (Auto) SMALL, Urine Sperm (Auto) 07/05/20 16:14: CBC/BMP Laboratory Tests 07/05/20 11:41 Microbiology Microbiology 07/05/20 Gram Stain, Received Pending 07/05/20 Abscess Culture, Received Pending 07/05/20 Blood Culture, Received Pending 07/05/20 Blood Culture, Received Pending 07/05/20 Group A Streptococcus Screen ([facility]), Received Pending Home Medications Scheduled Atomoxetine HCl (Atomoxetine HCl) 40 Mg Capsule, 40 MG PO DAILY Cholecalciferol (Vitamin D3) (Vitamin D3) 1,000 Unit Tablet, 3,000 UNITS PO DAILY Cyanocobalamin (Vitamin B-12) (Vitamin B-12) 1,000 Mcg Capsule, 1,000 MCG PO DAILY Omeprazole/Sodium Bicarbonate (Omeprazole-Bicarb 40-1,100 Cap) 1 Each Capsule, 1 CAP PO BID before meals Sertraline Hcl (Zoloft) 100 Mg Tablet, 100 MG PO DAILY Scheduled PRN Dicyclomine HCl (Dicyclomine HCl) 20 Mg Tablet, 20 MG PO QID PRN for CRAMPS Hydroxyzine HCl (Hydroxyzine HCl) 50 Mg Tablet, 50 MG PO QHS PRN for ANXIETY Ondansetron (Ondansetron Odt) 4 Mg Tab.rapdis, 4 MG PO Q6-8HP PRN for NAUSEA OR VOMITING Sucralfate (Sucralfate) 1 Gm Tablet, 1 GM PO ACHS PRN for ulcer pain Allergies Coded Allergies: vancomycin (Verified Allergy, Intermediate, patchy upper body rash, 08/03/19) CHERYL TAYLOR MD Jul 05, 2020 16:34
[2020-07-05 17:39] VITALS: BP 174/117
[2020-07-05 18:00] VITALS: BP 142/98
[2020-07-05] MEDS ORDERED: MORPHINE 2 MG/ML 1ML VIAL (J2270) IV PRN (18:00)
[2020-07-05] MEDS: ONDANSETRON 4MG/2ML VIAL IV PRN (18:27)
[2020-07-05] MEDS ORDERED: PROMETHAZINE INJ 25 MG/ML VIAL (J2550) IV ONE (19:00)
[2020-07-05] MEDS: OMEPRAZOLE 20 MG CAP PO SCH (20:17)
[2020-07-05] MEDS: HYDROCORTISONE INJection 1,000 MG in NS 50 ML IV SCH (20:17)
[2020-07-05] MEDS: AMPICILLIN SOD/SULBACTAM SOD 3 GM in D5W MINI-BAG PLUS 100 ML IV SCH (20:17)
[2020-07-05 20:21] VITALS: BP 146/94
[2020-07-05] MEDS ORDERED: ENOXAPARIN 40MG/0.4ML SYRINGE (J1650 PER 10MG) SC SCH (21:00)
[2020-07-06] MEDS: AMPICILLIN SOD/SULBACTAM SOD 3 GM in D5W MINI-BAG PLUS 100 ML IV SCH ×3 (02:22→13:56)
[2020-07-06] MEDS: ONDANSETRON 4MG/2ML VIAL IV PRN ×2 (03:11→09:44)
[2020-07-06] MEDS: HYDROCORTISONE INJection 1,000 MG in NS 50 ML IV SCH ×2 (03:47→13:34)
[2020-07-06 06:25] VITALS: BP 152/96
[2020-07-06 06:49] LABS: BASO % 0.1 % (0.0-1.0); HEMATOCRIT 36.7 % (42.0-52.0); HEMOGLOBIN 12.6 g/dl (13.5-17.5); LYMPH # 0.9 10^3/uL (1.5-5.0); LYMPH % 4.4 % (24.0-44.0); MEAN CORPUSCULAR HEMOGLOBIN 31.8 pg (27.0-33.0); MEAN CORPUSCULAR HGB CONC 34.3 g/dl (32.0-36.5); MEAN CORPUSCULAR VOLUME 92.7 fl (80.0-96.0); MONO # 0.5 10^3/uL (0.0-0.8); MONO % 2.5 % (2.0-8.0); NEUTROPHILS # 18.8 10^3/uL (1.5-8.5); NEUTROPHILS % 92.2 % (36.0-66.0); PLATELET COUNT, AUTOMATED 245 10^3/uL (150-450); RED BLOOD COUNT 3.96 10^6/uL (4.30-6.10); WHITE BLOOD COUNT 20.4 10^3/uL (4.0-10.0)
[2020-07-06 07:17] LABS: BLOOD UREA NITROGEN 13 MG/DL (7-18); CALCIUM LEVEL 9.7 MG/DL (8.5-10.1); CARBON DIOXIDE LEVEL 22 MEQ/L (21-32); CHLORIDE LEVEL 106 MEQ/L (98-107); CREATININE FOR GFR 0.62 MG/DL (0.70-1.30); GLOMERULAR FILTRATION RATE > 60.0 (>60); GLUCOSE, FASTING 115 MG/DL (70-100); MAGNESIUM LEVEL 1.6 MG/DL (1.8-2.4); POTASSIUM SERUM 3.2 MEQ/L (3.5-5.1); SODIUM LEVEL 140 MEQ/L (136-145)
[2020-07-06] MEDS ORDERED: CYANOCOBALAMIN 500 MCG TAB PO SCH (09:00)
[2020-07-06] MEDS ORDERED: POTASSIUM CHLORIDE 10 MEQ SR TABLET PO ONE (09:00)
[2020-07-06] MEDS ORDERED: SERTRALINE 100 MG TAB PO SCH (09:00)
[2020-07-06] MEDS ORDERED: ATOMOXETINE HCL 40 MG CAP (STRATTERA) PO SCH (09:00)
[2020-07-06] MEDS ORDERED: VITAMIN D 1,000 INTERNATIONAL UNITS TABLET PO SCH (09:00)
[2020-07-06] MEDS: MAG SULF 1GM/100ML (MAG RUN) 1 GM in IV 1 EA IV SCH ×2 (09:09→15:01)
[2020-07-06] MEDS: OMEPRAZOLE 20 MG CAP PO SCH (09:10)
[2020-07-06] MEDS ORDERED: NS 1,000 ML IV SCH (10:25)
[2020-07-06] MEDS ORDERED: LORazepam 2 MG/ML VIAL IV PRN (10:25)
[2020-07-06] MEDS ORDERED: NS 1,000 ML IV ONE (11:00)
[2020-07-06] MEDS ORDERED: PROMETHAZINE INJ 25 MG/ML VIAL (J2550) IV PRN (11:25)
--- NOTE | 2020-07-06 11:33 | IPNPDOC ---
Text Note Date of Service The patient was seen on 07/06/20. VS,Mechelle, I+O VS, Mechelle, I+O Laboratory Tests 07/05/20 11:41 07/06/20 06:06 Vital Signs Date Time Temp Pulse Resp B/P (MAP) Pulse Ox O2 Delivery O2 Flow Rate FiO2 07/06/20 06:25 152/96 (114) 07/06/20 06:00 98.4 102 20 98 Room Air I&O- Last 24 Hours up to 6 AM 07/06/20 05:59 Intake Total 2378 ml Output Total 2500 ml Balance -122 ml CHERYL TAYLOR MD Jul 06, 2020 11:33
[2020-07-06] MEDS ORDERED: MAGNESIUM SULFATE 1GM/100ML D5W BAG (10MG/ML) As Ordered ONE (14:41)
[2020-07-06 15:38] LABS: IMMUNOGLOBULIN G 866 MG/DL (681-1648); IMMUNOGLOBULIN M 66.4 MG/DL (40-230)
--- NOTE | 2020-07-06 16:58 | ECGEPIP ---
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 Electronically Signed on 07-06-2020 16:58:04 EDT by Colt Corey
[2020-07-06] MEDS ORDERED: AUGM875T28 PO (17:51)
--- NOTE | 2020-07-06 17:57 | DS.PDOC ---
Discharge Summary General Date of Admission Jul 05, 2020 at 16:10 Date of Discharge 07/06/2020 Discharge Summary PROCEDURES PERFORMED DURING STAY: Drainage of right tonsillar abscess by Dr. Cui on 07/05/2020 ADMITTING DIAGNOSES / DISCHARGE DIAGNOSES: s/p Throat pain - likely 2/2 R tonsillar abscess; s/p Drainage (07/05/2020 in the ER with Dr. Cui) Chronic nausea with multiple episodes of vomiting overnight s/p Lactic acid - likely 2/2 nausea and vomiting Depression / Anxiety ADHD s/p Chronic Leukocytosis Hx of PNA (07/2019) GERD / Hiatal Hernia DVT prophylaxis COMPLICATIONS/CHIEF COMPLAINT: Peritonsillar Abscess. HISTORY OF PRESENT ILLNESS: Patient is a 25-year-old male who presented to the emergency room with complaints of throat pain for the last 5 days. Patient denies any fevers or chills but does report some difficulty with swallowing that prompted him to come to the emergency room for further evaluation. In the ER, patient had imaging completed that revealed a right-sided developing tonsillar abscess. ENT was called to evaluate patient in the emergency room, who have performed at bedside drainage. Patient reports that he feels significantly better after the drainage. Patient was admitted to hospital service for further evaluation and treatment. HOSPITAL COURSE: s/p Throat pain - likely 2/2 R tonsillar abscess; s/p Drainage (07/05/2020 in the ER with Dr. Cui) - Patient presented to the ER with throat pain 5 days; associated with difficulty swallowing - s/p I&D in the ER - Patient reports that his throat feels much better - Blood cultures 07/05: Pending - Abscess throat culture 07/05: Many gram-negative rods, many gram-positive cocci in pairs and chains - Strep Screen: Negative Group A Strep - Imaging noted above - Will DC Hydrocortisone - Will DC Unasyn; will provide Augmentin on discharge for completion of antibiotic course - ID on consult; has seen and evaluated patient; cleared for DC home with outpatient follow up within 3 days - Will have outpatient follow up with ENT within 3 days Chronic nausea with multiple episodes of vomiting overnight - Patient reported that he has had a workup with an EGD and colonoscopy in October 2019; reported normal - No further episodes of vomiting during the day - s/p Zofran and Promethazine - c/w Outpatient regimen for nausea s/p Lactic acid - likely 2/2 nausea and vomiting - s/p IV fluid hydration Depression / Anxiety - c/w Sertraline and Hydroxyzine ADHD - c/w Atomoxetine s/p Chronic Leukocytosis - Patient has recently seen Dr. Cochran of infectious disease for a workup of chronic leukocytosis - However, on his initial encounter, his WBC and CRP were normal - Will have outpatient follow up with Dr. Cochran within 3 days Hx of PNA (07/2019) GERD / Hiatal Hernia - c/w Carafate and Omeprazole DVT prophylaxis - c/w TEDs/Sequentials and Lovenox DISCHARGE MEDICATIONS: Please see below. ALLERGIES: Please see below. PHYSICAL EXAMINATION ON DISCHARGE: Vitals (See below) General: Lying in bed, appears comfortable but reports he is very anxious, AAOx3 HEENT: NC, AT CVS: Tachycardic, +S1S2 Lungs: Fair air entry b/l, no wheezing, rhonchi or rales Abdomen: Soft, ND, NT Extremities: No evidence of edema, - Calf tenderness LABORATORY DATA: Please see below. IMAGING: CXR 07/05: No acute cardiopulmonary process appreciated. CT Neck 07/05: Oropharyngeal infectious/inflammatory process with forming right tonsillar abscess. ACTIVITY: [As tolerated]. DISCHARGE PLAN: Follow up with PCP, ID and ENT within 3 days Remain compliant with treatment plan and medications Return to the ER if you experience any problems DISPOSITION: Home DISCHARGE CONDITION: [Stable]. TIME SPENT ON DISCHARGE: 20 minutes. Vital Signs/I&Os Vital Signs Date Time Temp Pulse Resp B/P (MAP) Pulse Ox O2 Delivery O2 Flow Rate FiO2 07/06/20 06:25 152/96 (114) 07/06/20 06:00 98.4 102 20 98 Room Air I&O- Last 24 Hours up to 6 AM 07/06/20 05:59 Intake Total 2378 ml Output Total 2500 ml Balance -122 ml Laboratory Data Labs 24H Laboratory Tests 2 07/06/20 06:06: Immature Granulocyte % (Auto) 0.8, Neutrophils (%) (Auto) 92.2H, Lymphocytes (%) (Auto) 4.4L, Monocytes (%) (Auto) 2.5, Eosinophils (%) (Auto) 0.0, Basophils (%) (Auto) 0.1, Neutrophils # (Auto) 18.8H, Lymphocytes # (Auto) 0.9L, Monocytes # (Auto) 0.5, Eosinophils # (Auto) 0.0, Basophils # (Auto) 0.0, Nucleated Red Blood Cells % (auto) 0.0, Anion Gap 12, Glomerular Filtration Rate > 60.0, Calcium Level 9.7, Magnesium Level 1.6L, C-Reactive Protein, Quantitative 16.60H, Immunoglobulin A 155.0, Immunoglobulin G 866, Immunoglobulin M 66.4 07/06/20 10:35: Lactic Acid Level 2.8*H 07/06/20 14:50: Lactic Acid Followup at 4 Hours 0.9 CBC/BMP Laboratory Tests 07/06/20 06:06 Microbiology Microbiology 07/05/20 Gram Stain - Final, Resulted 07/05/20 Abscess Culture, Resulted Pending 07/05/20 Blood Culture - Preliminary, Resulted No growth after 24 hours . All specim... 07/05/20 Blood Culture - Preliminary, Resulted No growth after 24 hours . All specim... 07/05/20 Group A Streptococcus Screen ([facility]ON) - Final, Complete Discharge Medications Scheduled Amoxicillin/Potassium Clav (Augmentin 875-125 Tablet) 1 Each Tablet, 1 TAB PO BID Atomoxetine HCl (Atomoxetine HCl) 40 Mg Capsule, 40 MG PO DAILY, (Reported) Cholecalciferol (Vitamin D3) (Vitamin D3) 1,000 Unit Tablet, 3,000 UNITS PO DAILY, (Reported) Cyanocobalamin (Vitamin B-12) (Vitamin B-12) 1,000 Mcg Capsule, 1,000 MCG PO DAILY, (Reported) Omeprazole/Sodium Bicarbonate (Omeprazole-Bicarb 40-1,100 Cap) 1 Each Capsule, 1 CAP PO BID, (Reported) before meals Sertraline Hcl (Zoloft) 100 Mg Tablet, 100 MG PO DAILY, (Reported) Scheduled PRN Dicyclomine HCl (Dicyclomine HCl) 20 Mg Tablet, 20 MG PO QID PRN for CRAMPS, (Reported) Hydroxyzine HCl (Hydroxyzine HCl) 50 Mg Tablet, 50 MG PO QHS PRN for ANXIETY, (Reported) Ondansetron (Ondansetron Odt) 4 Mg Tab.rapdis, 4 MG PO Q6-8HP PRN for NAUSEA OR VOMITING, (Reported) Sucralfate (Sucralfate) 1 Gm Tablet, 1 GM PO ACHS PRN for ulcer pain, (Reported) Allergies Coded Allergies: vancomycin (Verified Allergy, Intermediate, patchy upper body rash, 08/03/19) CHERYL TAYLOR MD Jul 06, 2020 17:57
--- NOTE | 2020-07-06 20:53 | CR ---
INFECTIOUS DISEASE CONSULTATION DATE: 07/06/2020 REQUESTING PHYSICIAN: Karma Messina MD REASON FOR CONSULTATION: Peritonsillar abscess. HISTORY OF PRESENT ILLNESS: Hamilton is a pleasant 25-year-old male who is known to the infectious disease service - - as he recently was seen in the outpatient setting for persistent leukocytosis and cyclic vomiting - - who presented to the emergency department yesterday (07/05) with the chief complaint of worsening throat pain. Apparently, for the preceding five days, he had had a sore throat but subsequently woke up yesterday morning with significantly increased pain along the right side of his neck. He was having difficulty swallowing both liquids and solids which prompted him to present to urgent care. He was seen at urgent care and told to present to the emergency department. The patient reported feeling warm yesterday. Other than that, he denied any preceding fevers, chills, night sweats. Upon presentation to the ED, initial imaging in the form of a CT neck was done, showing an "oropharyngeal infectious/inflammatory process with a right tonsillar abscess forming." The ENT service was then consulted by the ED and performed a bedside incision and drainage of said abscess. Soon thereafter, the patient reported feeling much better with a significant decrease in his pain and improved swallowing. The patient was subsequently admitted under the care of the hospitalist service for continued management of right peritonsillar abscess in the form of antimicrobials and steroids. He was started on Ampicillin-sulbactam (Unasyn) q.6 hours, as well as hydrocortisone. His initial CBC showed leukocytosis with a white count of 20.6, neutrophil predominance, and an initial C-reactive protein of 13.9. Overnight he developed some moderate chills but consistently remained afebrile throughout. His white count remained elevated this morning at 20 and he began to experience some nausea with approximately four episodes of nonbloody emesis today. With the persistent white count in the setting of the peritonsillar abscess, the primary service subsequently consulted infectious disease. The patient was seen and examined this afternoon by the infectious disease service. Pt reports his nausea has improved ever since the most recent Unasyn administration at 2 p.m. today. He is reporting some anxiety and has been able to handle liquids with no significant odynophagia. We had an extensive discussion at the bedside regarding any history of childhood chronic infections. He reports having significant pneumonia this past summer (July,) and some scattered episodes of sinusitis, but no significant persistent repeat infections. PAST MEDICAL HISTORY: 1. Hiatal hernia. 2. Cyclic vomiting syndrome. 3. Generalized anxiety disorder. 4. History of pneumonia in July,. 5. Chronic leukocytosis. 6. Attention deficit hyperactive disorder, ADHD. PAST SURGICAL HISTORY: Esophagogastroduodenoscopy and colonoscopy in October,. FAMILY HISTORY: Father: History of melanoma. SOCIAL HISTORY: He is a nonsmoker and consumes alcohol in the form of 1-2 drinks every month to two months. He does have a significant history as well as current use of marijuana for his anxiety but reports decreasing the daily amount of marijuana over the past few weeks. He currently lives with his parents in [place], [place] and works fulltime at the [employer]. He also attends school part-time. ALLERGIES: REPORTED UPPER BODY RASH TO VANCOMYCIN LAST JULY WHILE BEING TREATED FOR PNEUMONIA. CURRENT HOME MEDICATIONS: 1. Vitamin B3 125 mcg 1 mL tablet under the tongue orally once a day. 2. Vitamin B12 1000 mcg extended-release tablet, one tablet p.o. q.d. 3. Magnesium gluconate 27.5 mg tablet p.o. daily. 4. Atomoxetine 40 mg capsule q.a.m. 5. Hydroxyzine 50 mg tablet p.o. p.r.n. q.8 hours. 6. Sertraline 100 mg tablet p.o. daily. 7. Omeprazole sodium bicarbonate 40-110 mg capsule orally twice a day on empty stomach. CURRENT INPATIENT MEDICATIONS: 1. Unisom (ampicillin sulbactam) 3 gm q.6 hours q.6 hours IV, this is day two of antibiotics. 2. Hydrocortisone 1000 mg/sodium chloride 58 mL at 348 mL per hour q.8 hours IV. 3. Lovenox. 4. Omeprazole 40 mg. 5. Sertraline. 6. Hydroxyzine. 7. Atomoxetine. 8. Ondansetron 4 mg q.4 hours p.r.n. 9. Omeprazole. 10. Carafate. REVIEW OF SYSTEMS: General: Reports some chills overnight but none since and some slight clamminess to the skin. He denies any current fever, night sweats or recent unintentional change in weight. HEENT: Denies headache, difficulty focusing, blurry vision, diplopia, tinnitus, sinus pain. He does state his ability to swallow is much less painful and he is tolerating a good amount of liquids at this point. Cardiovascular: He had reported palpitations earlier in the day to the hospitalist service but denied them upon our review. Denies also any central chest pain or pressure. Respiratory: Denies shortness of breath, cough or pleuritic chest pain. Gastrointestinal: He reports improvement in his nausea and four episodes of nonbloody emesis earlier today. He denies abdominal pain, constipation, diarrhea, or blood in stool. Lymph: Denies any new lumps or bumps other than the swelling of the right neck and face that prompted this admission. Hematology: Denies any easy bleeding or bruising. PHYSICAL EXAMINATION: VITALS: Temperature of 98.4 with a T-max 24 hours of 98.4, heart rate of 102, respiratory rate of 20, blood pressure of 152/96, SPO2 98% on room air, BMI of 22.6. GENERAL: Pleasant young white male lying in bed. Appears somewhat anxious. No acute distress. Alert and oriented x3. HEENT: Normocephalic, atraumatic. Noninjected, anicteric sclerae. No significant conjunctival pallor. Oral cavity: Mucous membranes are moist. There is some moderate erythema in the right posterior aspect of the buccal mucosa with some visualized mild to moderate swelling and a roughly 1/2 cm long circumferential area, a bowman-appearing area. There was no other significant exudate. NECK: There are bilateral submandibular 1+ lymph nodes that are painless. Trachea is midline. Neck is supple. There is no supraclavicular lymphadenopathy appreciated. CARDIOVASCULAR: Tachycardic rate, regular rhythm. Stefani S-1, S-2. No murmurs or rubs are appreciated. 2+ radial pulses bilaterally. RESPIRATORY: Clear to auscultation bilaterally with no adventitious breath sounds appreciated. Symmetric chest expansion. Breathing room air and speaking full sentences. ABDOMINAL: Soft, nontender, nondistended. Normoactive bowel sounds throughout. No rigidity or guarding No hepatosplenomegaly appreciated, no other masses were appreciated. BACK: There are multiple brown-colored papules scattered over the back. There is also a healed incisional biopsy type looking scar over the right scapula that is approximately three inches long x two inches wide. There is no CVA tenderness bilaterally. EXTREMITIES: Bilateral lower extremities free of edema with no signs of clubbing or cyanosis. 2+ posterior tibial pulses bilaterally. NEUROLOGIC: Awake, alert and oriented x3. No focal deficits appreciated. Nondysarthric speech. PSYCH: Patient appears mildly anxious. Affect appears appropriate. SKIN: No rashes visualized. The skin overlying the back is somewhat clammy. IMPRESSION/PLAN: 1. Right peritonsillar abscess, status post bedside incision and drainage. The patient is now on day two of Unasyn and we have recommended to the hospitalist service switching over to oral Augmentin. He should complete a ten-day course in total in the setting of peritonsillar abscess. From our standpoint, the patient is okay to be discharged today. We will follow up on the abscess culture results and respond accordingly should they significantly manager wealth management. On the gram stain, there were gram positive cocci in pairs and chains with gram negative rods. Patient denies significant history of recurrent infections. We inquired on this due to his significant pneumonia last year, as well as the current peritonsillar abscess, in an otherwise young, 25-year-old gentleman. In order to check immune system, we ordered immunoglobulins today which were within normal limits. The patient is alonso and has had sexual encounters with men previously but is not currently in a relationship and has no history of IV drug use. HIV screen last spring was negative and a MRSA PCR screen on this admission was also negative. It is important to note that his group A Strep screen was negative. He has chronic leukocytosis and follows with Dr. Cochran as an outpatient to address this as well as cyclic vomiting syndrome. 2. Leukocytosis. The patient has episodes of leukocytosis associated with vomiting and abdominal pain but upon check just last month while he was not having an active episode, his white count was within normal limits and a flow cytometry study was also benign. Blood cultures were obtained just last week during outpatient visit due to the persistent leukocytosis but we feel that bacteremia as a diagnosis to explain the elevated white count is very unlikely. The leukocytosis is likely related to stress when he is in an episode of vomiting and not due to infectious etiology. 3. Recurrent vomiting secondary to cyclic vomiting syndrome. He has had these symptoms for the past eight years since the age of 17 and they are quite typical for cyclic vomiting as they last about five days and he has a significant h/o anxiety. We are in the process of obtaining records from his de icer (Dr. Mariposa Luu) in [place]. He had an endoscopy and colonoscopy last year which found some reflux and hiatal hernia and otherwise was unremarkable. There was a repeat liver profile ordered recently as well as a CT of abdomen and pelvis. SUMMARY: As stated, okay for patient to be discharged home today from infectious disease standpoint. He will complete 10 total days of antimicrobial therapy and will be transitioned to oral Augmentin after receiving two days of IV Unasyn. The patient will follow up with Dr. Cocrhan as an outpatient for continued monitoring. As stated, we will follow up on the abscess culture once those results are known. MELVID
--- NOTE | 2020-07-09 10:08 | RO ---
OPERATIVE NOTE DATE OF OPERATION: 07/06/2020 The patient presents with history of sore throat which had been going on for four days. It is worse on the right side. He has problems with swallowing now. He has no problems with his breathing. He has not had a problem with this in the past. Again, it is worse on the right side. Examination today shows that the patient is alert and oriented. He has enlarged bilateral jugular digastric lymph nodes. He has prominent right peritonsillar area, anterior pillar, with erythema and edema. CT scan shows that there is a peritonsillar abscess. I infiltrated the area with Lidocaine with Epinephrine. I aspirated 7 mL of purulent material from the peritonsillar area. I made an incision over the area. The patient tolerated the procedure well. IMPRESSION: The patient presents with history of sore throat which is related to right peritonsillar abscess. It was drained today in the office. The patient will be admitted and placed on IV antibiotics until he is able to swallow and then I will let him go home.
== END 2020-07-06 18:15 | disposition home or self-care (01) ==
LOC: M ED 10:31 → M ED INP 16:10 → INTOOBSV 16:10 → ENRESERV 16:25 → M MS5PR 17:28
PROVIDERS: ADMIT Internal Medicine; ATTEND Internal Medicine
DX: J36 Peritonsillar abscess (principal); R11.2 Nausea with vomiting, unspecified; E87.2 Acidosis; E87.6 Hypokalemia; F41.9 Anxiety disorder, unspecified; F32.9 Major depressive disorder, single episode, unspecified; F90.9 Attention-deficit hyperactivity disorder, unspecified type; K21.9 Gastro-esophageal reflux disease without esophagitis; D72.829 Elevated white blood cell count, unspecified; K44.9 Diaphragmatic hernia without obstruction or gangrene; Z88.1 Allergy status to other antibiotic agents; Z79.899 Other long term (current) drug therapy; F12.10 Cannabis abuse, uncomplicated
CPT/HCPCS: 36415; 42700; 70491; 71045; 80047; 80048; 80076; 81001; 82784; 83605; 83690; 83735; 85025; 86140; 86308; 87040; 87070; 87076; 87205; 87631; 87641; 87880; 93005; 96361; 96365; 96366; 96372; 96375; 96376; 97161; 99284; J1650; J1720; J1885; J2060; J2270; J2405; J3475; Q9967

== ENCOUNTER → 2020-07-21 | Outpatient (CLI) | payer BC ==
[~2020-07-21] MED LIST changes: +AUGM875T28 PO; +DICY20TA11 PO; +SUCR1TA PO
[2020-07-21 12:53] LABS: APPEARANCE, URINE CLEAR (CLEAR); BACTERIA, URINE AUTO NEGATIVE (NEGATIVE); BILIRUBIN, URINE AUTO NEGATIVE (NEGATIVE); BLOOD, URINE BLOOD NEGATIVE (NEGATIVE); COLOR, URINE YELLOW (YELLOW); GLUCOSE, URINE (UA) AUTO NEGATIVE (NEGATIVE); KETONE, URINE AUTO NEGATIVE (NEGATIVE); LEUKOCYTE ESTERASE, URINE AUTO NEGATIVE (NEGATIVE); NITRITE, URINE AUTO NEGATIVE (NEGATIVE); PROTEIN, URINE AUTO NEGATIVE (NEGATIVE); RBC, URINE AUTO 1 /HPF (0-3); SPECIFIC GRAVITY URINE AUTO 1.018 (1.002-1.035); SQUAMOUS EPITHELIAL CELL UR AU 0 /HPF (0-6); UROBILINOGEN, URINE AUTO 0.2 mg/dL (0.0-2.0); WBC, URINE AUTO 0 /HPF (0-3)
[2020-07-21 14:41] LABS: HEPATITIS B SURFACE ANTIBODY NEGATIVE (POSITIVE); HEPATITIS C VIRUS ABY INDEX < 0.0 INDEX (<0.8); HIV 1&2 SCREEN CENTAUR NEGATIVE (NEGATIVE)
== END ==
LOC: M WUC 10:49
PROVIDERS: ATTEND Internal Medicine Infectious Disease
DX: Z91.89 Other specified personal risk factors, not elsewhere classified (principal)

== ENCOUNTER → 2021-05-20 | Outpatient (CLI) | payer OTHER ==
[~2021-05-20] MED LIST changes: -DICY20TA11 PO; +DICY20TA20 PO; +E-Z-GAS II EFFERVESCENT PACKET (SODIUM BICARB./CITRIC ACID/SIMETHICONE) As Ordered ONE; +E-Z-HD 98% w/w 340GM SUSP BTL As Ordered ONE; +E-Z-PAQUE 96% w/w SUSP 176GM BTL As Ordered ONE
== END ==
LOC: M RAD 10:03
PROVIDERS: ATTEND Surgery
DX: K21.9 Gastro-esophageal reflux disease without esophagitis (principal)